=== PATIENT | male | born 1950 | race Caucasian/White ===

== ENCOUNTER 2016-10-23 20:55 | Observation (INO) | payer MEDICARE, OTHER ==
--- NOTE | 2016-10-23 21:59 | ER Document Report ---
ED General - General Chief Complaint: Chest Pain Stated Complaint: CHEST PAIN Time Seen by Provider: 10/23/16 21:58 Notes: Patient is a 65-year-old male presents with complaints of chest pain. Patient says chest pain started today. Left-sided. Nonradiating. Pain is sharp. Says pain is little bit worse with taking a deep breath. No fevers. No vomiting. He has a history of triple bypass surgery in 2009. No cardiac stents. Pain is not worse with movement or motion. He is on dialysis. He gets dialysis Monday. His dialysis doctor is Dr. Bernard. His survey manager is Dr. Romero. His primary care doctors Dr. Harding. No other complaints at this time. TRAVEL OUTSIDE OF THE [place] IN LAST 30 DAYS: No - Related Data Allergies/Adverse Reactions: No Known Allergies Allergy (Verified 10/23/16 22:47) Past Medical History - Social History Smoking Status: Former Smoker Frequency of alcohol use: None Drug Abuse: None Family History: DM, Hypertension - Past Medical History Cardiac Medical History: Reports: Hx Coronary Artery Disease, Hx Heart Attack - 2009, Hx Hypercholesterolemia, Hx Hypertension Denies: Hx Atrial Fibrillation, Hx Peripheral Vascular Disease, Hx Heart Murmur Pulmonary Medical History: Denies: Hx Asthma, Hx Bronchitis, Hx COPD, Hx Pneumonia, Hx Tuberculosis Neurological Medical History: Denies: Hx Cerebrovascular Accident, Hx Seizures Endocrine Medical History: Reports: Hx Diabetes Mellitus Type 2. Denies: Hx Graves' Disease, Hx Hyperthyroidism, Hx Hypothyroidism Renal/ Medical History: Reports: Hx End Stage Renal Disease - dialysis. 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 Denies: Hx Appendectomy, Hx Bowel Surgery, Hx Cholecystectomy, Hx Coronary Artery Bypass Graft, Hx Gastric Bypass Surgery, Hx Herniorrhaphy, Hx Pacemaker, Hx Tonsillectomy. Comment Only: Hx Open Heart Surgery - 2009 - Immunizations Immunizations up to date: No Hx Diphtheria, Pertussis, Tetanus Vaccination: Yes Hx Pneumococcal Vaccination: 06/12/11 Review of Systems - Review of Systems Notes: My Normal Review Basic REVIEW OF SYSTEMS: CONSTITUTIONAL : Denies fever, chills, or sweats. Denies recent illness. EENT: Denies eye, ear, throat, or mouth pain or symptoms. Denies nasal or sinus congestion. CARDIOVASCULAR: Has chest pain RESPIRATORY: Denies cough, cold, or chest congestion. Denies shortness of breath, difficulty breathing, or wheezing. GASTROINTESTINAL: Denies abdominal pain. Denies nausea, vomiting, or diarrhea. Denies constipation. Last BM: : MUSCULOSKELETAL: Denies neck or back pain or joint pain or swelling. SKIN: Denies rash or skin lesions. NEUROLOGICAL: Denies altered mental status or loss of consciousness. Denies headache. Denies weakness or paralysis or loss of use of either side. Denies problems with gait or speech. Denies sensory or motor loss. ALL OTHER SYSTEMS REVIEWED AND NEGATIVE. Physical Exam - Notes Notes: General Appearance: Well nourished, alert, cooperative, no acute distress, no obvious discomfort. Well-appearing. Vitals: reviewed, See vital signs table. Head: no swelling or tenderness to the head Eyes: PERRL, EOMI, Conjuctiva clear Mouth: No decreasd moisture Neck: Supple, no neck tenderness, No thyromegaly Lungs: No wheezing, No rales, No rhonci, No accessory muscle use, good air exchange bilaterally. Heart: Normal rate, Regular rythm, slight systolic murmur., no rub Abdomen: Normal BS, soft, No rigidity, No abdominal tenderness, No guarding, no rebound, no abdominal masses, no organomegaly Extremities: strength 5/5 in all extremities, good pulses in all extremities, no swelling or tenderness in the extremities, no edema. Fistula left forearm. Good palpable thrill. Good distal pulse. Skin: warm, dry, appropriate color, no rash Neuro: speech clear, oriented x 3, normal affect, responds appropriately to questions. Course - Laboratory Result Diagrams: 10/23/16 22:31 10/23/16 22:31 Laboratory results interpreted by me: 10/23/16 10/23/16 22:31 22:31 RBC 3.25 L Hgb 10.1 L Hct 30.0 L Sodium 134.1 L Potassium 5.6 H Chloride 95 L BUN 81 H Creatinine 9.88 H Est GFR ( Amer) 6 L Est GFR (Non-Af Amer) 5 L Glucose 352 H Direct Bilirubin 0.6 H Creatine Kinase 427 H - EKG Interpretation by Me Additional EKG results interpreted by me: 10/23/16 21:58 EKG is reviewed and interpreted by me. EKG shows normal sinus rhythm with rate of [address] segment elevation or depression. No ischemic T wave inversions. GA interval, QRS duration are within normal range. QTc interval slightly prolonged. Old EKG for comparison is from 09/10/2015. - Transfer of Care Notes: 10/23/16 23:26 Patient's chest pain was relieved with nitroglycerin. He is complaining of slight heartburn and therefore I did order a check cocktail as well. His initial troponins 0.085. His troponin a year goes 0.090. I suspect he is in the indeterminate range 2 to requiring dialysis. He is due for dialysis the morning. I did call the nursing classified advertising supervisor who says we do have dialysis beds. I did speak with Dr. Shi who is covering for Dr. Harding who agrees to accept the patient for admission for cardiac workup and wanting dialysis. Patient currently is feeling improved and has no difficulty breathing and looks well. Dictation of this chart was performed using voice recognition software; therefore, there may be some unintended grammatical errors. Discharge - Discharge Clinical Impression: Hyperkalemia Chest pain Qualifiers: Chest pain type: unspecified Qualified Code(s): R07.9 - Chest pain, unspecified Renal failure Qualifiers: Renal failure chronicity: chronic Chronic kidney disease stage: on chronic dialysis Qualified Code(s): N18.6 - End stage renal disease; Z99.2 - Dependence on renal dialysis Condition: Stable Disposition: ADMITTED OBSERVATION Admitting Provider: Mehdi Unit Admitted: Telemetry
[2016-10-23] MEDS ORDERED: ASPIRIN 325 MG TABLET PO ONE (22:04)
[2016-10-23] MEDS ORDERED: NITROGLYCERIN 2% OINTMENT 1 GM PACKET TP ONE (22:04)
[2016-10-23 22:45] LABS: ABSOLUTE BASOPHILS # (AUTO) 0.1 10^3/uL (0.0-0.2); ABSOLUTE EOSINOPHILS # (AUTO) 0.2 10^3/uL (0.0-0.6); ABSOLUTE LYMPHOCYTES (AUTO) 1.2 10^3/uL (0.5-4.7); ABSOLUTE MONOCYTES (AUTO) 0.7 10^3/uL (0.1-1.4); ABSOLUTE NEUT (AUTO) 5.3 10^3/uL (1.7-8.2); BASOPHILS % (AUTO) 1.2 % (0-2); EOSINOPHILS % (AUTO) 2.4 % (0-6); HEMOGLOBIN 10.1 g/dL (13.5-17.0); HGB HCT DIFFERENCE 0.3; LYMPHOCYTES % (AUTO) 15.8 % (13-45); MEAN CORPUSCULAR HGB CONC 33.6 g/dL (32.0-36.0); MEAN CORPUSCULAR VOLUME 92 fl (80-97); MONOCYTES % (AUTO) 9.4 % (3-13); RED BLOOD COUNT 3.25 10^6/uL (4.35-5.55); RED CELL DISTRIBUTION WIDTH 13.6 % (11.5-14.0); SEGMENTED NEUTROPHILS % (AUTO) 71.2 % (42-78); WHITE BLOOD COUNT 7.5 10^3/uL (4.0-10.5)
--- NOTE | 2016-10-23 22:46 | EKG REPORT ---
SEVERITY:- ABNORMAL ECG - SINUS RHYTHM PROBABLE LEFT VENTRICULAR HYPERTROPHY BORDERLINE PROLONGED QT INTERVAL : Confirmed by: Rani Romero 23-Oct-2016 22:45:33
[2016-10-23] MEDS ORDERED: METOCLOPRAMIDE HCL ORAL SOLN 10 MG/10 ML UDCUP PO ONE (23:03)
[2016-10-23] MEDS ORDERED: MAG HYDROX/AL HYDROX/SIMETH SUSP 30 ML UDCUP PO ONE (23:03)
[2016-10-23] MEDS ORDERED: LIDOCAINE 2% VISCOUS SOLN 20 ML UDCUP PO ONE (23:03)
[2016-10-23 23:04] LABS: ALANINE AMINOTRANSFERASE 30 U/L (21-72); ALKALINE PHOSPHATASE 77 U/L (38-126); ANION GAP 16 (5-19); ASPARTATE AMINO TRANSFERASE 29 U/L (17-59); BILIRUBIN,DIRECT 0.6 mg/dL (0.0-0.4); BILIRUBIN,TOTAL 0.6 mg/dL (0.2-1.3); BLOOD UREA NITROGEN 81 mg/dL (7-20); CALCIUM 9.6 mg/dL (8.4-10.2); CARBON DIOXIDE 23 mmol/L (22-30); CHLORIDE 95 mmol/L (98-107); CREATINE KINASE 427 U/L (55-170); CREATININE RESULT 9.88 mg/dL (0.52-1.25); GLUCOSE 352 mg/dL (75-110); POTASSIUM 5.6 mmol/L (3.6-5.0); SODIUM 134.1 mmol/L (137-145)
[2016-10-23 23:16] LABS: CREATINE KINASE MB 4.34 ng/mL (<4.55)
[2016-10-23 23:18] LABS: TROPONIN I 0.085 ng/mL
[2016-10-24] MEDS ORDERED: DEXTROSE 40% GEL 15 GM TUBE X 2 PO PRN (03:43)
[2016-10-24] MEDS ORDERED: GLUCAGON,HUMAN RECOMB 1 MG INJ IM PRN ×2 (03:43→17:42)
[2016-10-24] MEDS ORDERED: DEXTROSE 50%-WATER SYRINGE 12.5 GM/25 ML DOSE IV PRN (03:43)
[2016-10-24] MEDS ORDERED: DEXTROSE 50%-WATER SYRINGE 25 GM/50 ML DOSE IV PRN (03:43)
[2016-10-24] MEDS ORDERED: DEXTROSE 40% GEL 15 GM TUBE PO PRN ×3 (03:43→17:42)
[2016-10-24] MEDS: INSULIN LISPRO 100 UNIT/ML 3 ML VIAL SUBCUT SCH ×2 (08:48→13:19)
[2016-10-24 10:02] LABS: CREATINE KINASE MB 3.35 ng/mL (<4.55); TROPONIN I 0.079 ng/mL
--- NOTE | 2016-10-24 10:13 | PDOC CONSULTATION ---
Consultation Consult Date: 10/24/16 Consult reason:: Hemodialysis. History of Present Illness Admission Date/PCP: 10/23/16 23:55 ALEXIS VILLALOBOS MD History of Present Illness: MIRI BENJAMIN is a 65 year old male With a history of complicated diabetes mellitus hypertension ESRD on hemodialysis with a history of severe noncompliance with diet and medications and high fluid gains comes in with a history of chest pain/pressure.The pain was retrosternal and lasted for a few hours. There was some radiation into the neck. Patient had associated shortness of breath but he has this periodically also because of his high fluid gains. He keeps doing this in spite of numerous advises against it.Patient has had a previous history of CAD status post CABG. Patient is undergoing dialysis without issues.Is currently chest pain- free.Orders were discussed with the treating dialysis nurse. We will try to remove between 4 and 5 L as tolerated as he is definitely fluid overloaded and is in early congestive heart failure. He is hemodynamically stable. Past Medical History Cardiac Medical History: Reports: Coronary Artery Disease, Hyperlipidemia, Myocardial Infarction - 2009 Denies: Atrial Fibrillation, Heart Murmur, Peripheral Vascular Disease Pulmonary Medical History: Denies: Asthma, Bronchitis, Chronic Obstructive Pulmonary Disease (COPD), Pneumonia, Tuberculosis Neurological Medical History: Denies: Seizures Endocrine Medical History: Reports: Diabetes Mellitus Type 1, Diabetes Mellitus Type 2 Denies: Hyperthyroidism, Hypothyroidism Renal/ Medical History: Reports: End Stage Renal Disease - dialysis GI Medical History: Denies: Hepatitis, Hiatal Hernia Musculoskeltal Medical History: Reports: Arthritis - neck Denies: Fibromyalgia, Rheumatoid Arthritis, Systemic Lupus Erythematosus Psychiatric Medical History: Reports: Depression Past Surgical History Past Surgical History: Reports: Vascular Surgery - fistula left forearm Denies: Appendectomy, Cholecystectomy, Coronary Artery Bypass Graft, Gastric Bypass Surgery, Herniorrhaphy, Pacemaker, Tonsillectomy Social History Smoking Status: Former Smoker Frequency of Alcohol Use: None Hx Recreational Drug Use: No Hx Prescription Drug Abuse: No - Advance Directive Resuscitation Status: Full Code Family History Parental Family History Reviewed: Yes - Negative for ESRD. Children Family History Reviewed: No Sibling(s) Family History Reviewed.: No Medication/Allergy Home Medications: Amlodipine Besylate [Norvasc 10 mg Tablet] 10 mg PO QHS 10/24/16 Aspirin [Adult Low Dose Aspirin EC] 81 mg PO DAILY 10/24/16 Calcium Acetate [Phoslo 667 mg Capsule] 1,334 mg PO ASDIR PRN 10/24/16 Calcium Acetate [Phoslo 667 mg Capsule] 2,668 mg PO MEALS 10/24/16 Cyanocobalamin (Vitamin B-12) [Vitamin B-12] 2,000 mcg PO DAILY 10/24/16 Doxazosin Mesylate [Cardura 4 mg Tablet] 4 mg PO QHS 10/24/16 Fish Oil/Dha/Epa [Fish Oil 1,200 mg Fish Oil] 1,200 mg PO DAILY 10/24/16 Folic Acid/Vitamin B Comp W-C [Dialyvite Tablet] 1 tab PO DAILY 10/24/16 Furosemide [Lasix] 40 mg PO WLUNCH 10/24/16 Furosemide [Lasix] 80 mg PO QAM 10/24/16 Gabapentin [Neurontin 300 mg Capsule] 900 mg PO Q8 10/24/16 Hydralazine HCl [Apresoline 50 mg Tablet] 100 mg PO Q8H 10/24/16 Insulin Glargine,Hum.rec.anlog [Lantus Solostar] 20 units SQ QHS 10/24/16 Insulin Lispro [Humalog] 0 units SQ .PERSLIDINGSCALE 10/24/16 Pravastatin Sodium [Pravachol] 20 mg PO QHS 10/24/16 Sitagliptin Phosphate [Januvia 25 mg Tablet] 25 mg PO DAILY 10/24/16 Clonidine HCl [Catapres 0.1 mg Tablet] 0.2 mg PO Q12 #60 tablet 10/25/16 Nitroglycerin [Nitro-Dur 10 mg (0.4MG/Hr) Transdermal Patch] 1 each TD DAILY # 30 patch.td24 10/25/16 Allergies/Adverse Reactions: No Known Allergies Allergy (Verified 10/23/16 22:47) Review of Systems Constitutional: ABSENT: fever(s), headache(s), night sweats, weakness Nose, Mouth, and Throat: ABSENT: mouth pain, sore throat Cardiovascular: PRESENT: dyspnea on exertion, edema. ABSENT: orthropnea, palpitations Respiratory: PRESENT: dyspnea. ABSENT: hemoptysis, sputum Gastrointestinal: ABSENT: abdominal pain, constipation, diarrhea, dysphagia, heartburn, hematemesis, hematochezia Genitourinary: ABSENT: dysuria, hematuria Neurological: ABSENT: abnormal gait, abnormal speech, dizziness, focal weakness Endocrine: ABSENT: heat intolerance Physical Exam Vital Signs: Temp Pulse Resp BP Pulse Ox 97.9 F 60 18 171/58 H 95 10/24/16 08:05 10/24/16 08:05 10/24/16 08:05 10/24/16 08:05 10/24/16 08:05 Intake & Output 10/23/16 10/24/16 10/25/16 06:59 06:59 06:59 Intake Total 3 Output Total 0 Balance 3 General appearance: PRESENT: no acute distress Eye exam: PRESENT: conjunctiva pink, EOMI Ear exam: PRESENT: normal external ear exam Mouth exam: PRESENT: moist, neck supple Neck exam: ABSENT: lymphadenopathy, meningismus, tenderness, thyromegaly, tracheal deviation Respiratory exam: PRESENT: clear to auscultation sarah, crackles, symmetrical, tachypnea. ABSENT: chest wall tenderness, rhonchi Cardiovascular exam: PRESENT: +S1, +S2, systolic murmur GI/Abdominal exam: PRESENT: normal bowel sounds, soft. ABSENT: diminished bowel sounds, organomegaly, tenderness Extremities exam: PRESENT: +2 edema Neurological exam: PRESENT: alert, awake, oriented to person, oriented to place , oriented to time Skin exam: ABSENT: erythema, mottled, rash Results Impressions: Chest X-Ray 10/23/16 22:04 IMPRESSION: MILD CARDIOMEGALY. NO ACUTE RADIOGRAPHIC FINDING IN THE CHEST. Assessment & Plan - Diagnosis (1) Congestive heart failure Qualifiers: Congestive heart failure type: combined Plan: Early. Should respond very well to ultrafiltration on hemodialysis. Discussed with patient on diet and fluid intake. (2) Chest pain Qualifiers: Chest pain type: unspecified Qualified Code(s): R07.9 - Chest pain, unspecified Plan: As per Dr. Villalobos. Currently chest pain-free. (3) Hyperkalemia Plan: Should respond to dialysis. Appropriate bath ordered. Discussed diet with patient. (4) Hypertension Qualifiers: Hypertension type: renovascular hypertension Qualified Code(s): I15.0 - Renovascular hypertension (5) Diabetes mellitus type II, controlled Qualifiers: Diabetes mellitus complication status: with unspecified complications Plan: Advised on diet blood sugar control starting with diet. Patient quite noncompliant. Unfortunate. (6) End-stage renal disease on hemodialysis Plan: Patient currently undergoing dialysis without issues. Orders were discussed with the treating dialysisit will remotely between 4 and 5 L as tolerated. Hemodynamically stable. (7) Hyperkalemia Plan: He should respond to dialysis. Discussed diet again with patient.
[2016-10-24] MEDS: HEPARIN SOD (PORCINE) 1,000 UNIT/ML 10 ML VIAL IV PRN ×2 (10:33→13:19)
[2016-10-24] MEDS ORDERED: CALCIUM ACETATE 667 MG CAPSULE PO PRN (14:42)
[2016-10-24] MEDS ORDERED: HYDRALAZINE HCL 50 MG TABLET PO ONE (15:15)
[2016-10-24] MEDS ORDERED: CLONIDINE HCL 0.1 MG TABLET PO ONE (15:15)
[2016-10-24 15:53] LABS: CREATINE KINASE MB 2.99 ng/mL (<4.55); TROPONIN I 0.092 ng/mL
[2016-10-24] MEDS ORDERED: INSULIN LISPRO 100 UNIT/ML 3 ML VIAL SUBCUT SCH (16:00)
[2016-10-24] MEDS ORDERED: INSULIN LISPRO 100 UNIT/ML 3 ML VIAL SUBCUT PRN (16:21)
[2016-10-24] MEDS: CALCIUM ACETATE 667 MG CAPSULE PO SCH (16:33)
[2016-10-24] MEDS ORDERED: SITAGLIPTIN PHOSPHATE 25 MG TABLET PO ONE (17:00)
--- NOTE | 2016-10-24 17:38 | PDOC H&P ---
History of Present Illness Admission Date/PCP: 10/23/16 23:55 ALEXIS VILLALOBOS MD Patient complains of: Chest pain History of Present Illness: MIRI BENJAMIN is a 65 year old male With a history of complicated diabetes mellitus hypertension ESRD on hemodialysis with a history of severe noncompliance with diet and medications and high fluid gains comes in with a history of chest pain/pressure.The pain was retrosternal and lasted for a few hours. There was some radiation into the neck. Patient had associated shortness of breath but he has this periodically also because of his high fluid gains. He keeps doing this in spite of numerous advises against it.Patient has had a previous history of CAD status post CABG. Patient is undergoing dialysis without issues.Is currently chest pain- free.Orders were discussed with the treating dialysis nurse. We will try to remove between 4 and 5 L as tolerated as he is definitely fluid overloaded and is in early congestive heart failure. He is hemodynamically stable. Past Medical History Cardiac Medical History: Reports: Coronary Artery Disease, Myocardial Infarction - 2010, Hyperlipidema, Hypertension Denies: Atrial Fibrillation, Peripheral Vascular Disease, Heart Murmur Pulmonary Medical History: Denies: Asthma, Bronchitis, Chronic Obstructive Pulmonary Disease (COPD), Pneumonia, Tuberculosis Neurological Medical History: Denies: Seizures Endocrine Medical History: Reports: Diabetes Mellitus Type 1, Diabetes Mellitus Type 2 Denies: Hyperthyroidism, Hypothyroidism Renal/ Medical History: Reports: End Stage Renal Disease - dialysis GI Medical History: Denies: Hepatitis, Hiatal Hernia Musculoskeltal Medical History: Reports: Arthritis - neck Denies: Fibromyalgia Psychiatric Medical History: Reports: Depression Hematology: Denies: Anemia, Sickle Cell Disease Past Surgical History Past Surgical History: Reports: Vascular Surgery - fistula left forearm Denies: Appendectomy, Cholecystectomy, Coronary Artery Bypass Graft, Gastric Bypass Surgery, Herniorrhaphy, Pacemaker, Tonsillectomy Social History Smoking Status: Former Smoker Frequency of Alcohol Use: None Hx Recreational Drug Use: No Hx Prescription Drug Abuse: No - Advance Directive Resuscitation Status: Full Code Family History Family History: Reviewed & Not Pertinent, DM, Hypertension Parental Family History Reviewed: Yes Children Family History Reviewed: Yes Sibling(s) Family History Reviewed.: Yes Medication/Allergy Home Medications: Amlodipine Besylate [Norvasc 10 mg Tablet] 10 mg PO QHS 10/24/16 Aspirin [Adult Low Dose Aspirin EC] 81 mg PO DAILY 10/24/16 Calcium Acetate [Phoslo 667 mg Capsule] 1,334 mg PO ASDIR PRN 10/24/16 Calcium Acetate [Phoslo 667 mg Capsule] 2,668 mg PO MEALS 10/24/16 Clonidine HCl [Catapres 0.1 mg Tablet] 0.1 mg PO Q8 10/24/16 Cyanocobalamin (Vitamin B-12) [Vitamin B-12] 2,000 mcg PO DAILY 10/24/16 Doxazosin Mesylate [Cardura 4 mg Tablet] 4 mg PO QHS 10/24/16 Fish Oil/Dha/Epa [Fish Oil 1,200 mg Fish Oil] 1,200 mg PO DAILY 10/24/16 Folic Acid/Vitamin B Comp W-C [Dialyvite Tablet] 1 tab PO DAILY 10/24/16 Furosemide [Lasix] 40 mg PO WLUNCH 10/24/16 Furosemide [Lasix] 80 mg PO QAM 10/24/16 Gabapentin [Neurontin 300 mg Capsule] 900 mg PO Q8 10/24/16 Hydralazine HCl [Apresoline 50 mg Tablet] 100 mg PO Q8H 10/24/16 Insulin Glargine,Hum.rec.anlog [Lantus Solostar] 20 units SQ QHS 10/24/16 Insulin Lispro [Humalog] 0 units SQ .PERSLIDINGSCALE 10/24/16 Pravastatin Sodium [Pravachol] 20 mg PO QHS 10/24/16 Sitagliptin Phosphate [Januvia 25 mg Tablet] 25 mg PO DAILY 10/24/16 Allergies/Adverse Reactions: No Known Allergies Allergy (Verified 10/23/16 22:47) Review of Systems Constitutional: ABSENT: chills, fever(s), headache(s), weight gain, weight loss Eyes: ABSENT: visual disturbances Ears: ABSENT: hearing changes Cardiovascular: PRESENT: chest pain Respiratory: ABSENT: cough, hemoptysis Gastrointestinal: ABSENT: abdominal pain, constipation, diarrhea, hematemesis, hematochezia, nausea, vomiting Genitourinary: ABSENT: dysuria, hematuria Musculoskeletal: ABSENT: joint swelling Integumentary: ABSENT: rash, wounds Neurological: ABSENT: abnormal gait, abnormal speech, confusion, dizziness, focal weakness, syncope Psychiatric: ABSENT: anxiety, depression, homidical ideation, suicidal ideation Endocrine: ABSENT: cold intolerance, heat intolerance, menstrual abnormalities, polydipsia, polyuria Hematologic/Lymphatic: ABSENT: easy bleeding, easy bruising, lymphadenopathy Physical Exam Vital Signs: Temp Pulse Resp BP Pulse Ox 98.0 F 60 18 168/56 H 97 10/24/16 16:15 10/24/16 16:15 10/24/16 16:15 10/24/16 16:15 10/24/16 16:15 Intake & Output 10/23/16 10/24/16 10/25/16 06:59 06:59 06:59 Intake Total 3 Output Total 0 Balance 3 General appearance: PRESENT: no acute distress, well-developed, well-nourished Head exam: PRESENT: atraumatic, normocephalic Eye exam: PRESENT: conjunctiva pink, EOMI, PERRLA. ABSENT: scleral icterus Ear exam: PRESENT: normal external ear exam Mouth exam: PRESENT: moist, tongue midline Neck exam: PRESENT: full ROM. ABSENT: carotid bruit, JVD, lymphadenopathy, thyromegaly Respiratory exam: PRESENT: clear to auscultation sarah Cardiovascular exam: PRESENT: RRR. ABSENT: diastolic murmur, rubs, systolic murmur Pulses: PRESENT: normal dorsalis pedis pul, +2 pedal pulses bilateral Vascular exam: PRESENT: normal capillary refill GI/Abdominal exam: PRESENT: normal bowel sounds, soft. ABSENT: distended, guarding, mass, organolmegaly, rebound, tenderness Rectal exam: PRESENT: deferred Neurological exam: PRESENT: alert, awake, oriented to person, oriented to place , oriented to time, oriented to situation, CN II-XII grossly intact. ABSENT: motor sensory deficit Psychiatric exam: PRESENT: appropriate affect, normal mood. ABSENT: homicidal ideation, suicidal ideation Skin exam: PRESENT: dry, intact, warm. ABSENT: cyanosis, rash Results Laboratory Results: 10/24/16 10/24/16 10/24/16 09:14 09:14 15:02 Creatine Kinase 352 H 307 H CK-MB (CK-2) 3.35 Troponin I 0.079 10/24/16 15:02 Creatine Kinase CK-MB (CK-2) 2.99 Troponin I 0.092 Impressions: Chest X-Ray 10/23/16 22:04 IMPRESSION: MILD CARDIOMEGALY. NO ACUTE RADIOGRAPHIC FINDING IN THE CHEST. Assessment & Plan - Diagnosis (1) Chest pain Qualifiers: Chest pain type: unspecified Qualified Code(s): R07.9 - Chest pain, unspecified Is this a current diagnosis for this admission?: YesPlan: Patient's no significant history of CAD and the multiple risk factor will admit the patient in the IMCU and rule out acute coronary syndrome and consult the cardiology for further evaluations. Patient's last stress was done according to the patient's 6 month back and was all normal (2) Coronary artery disease Qualifiers: Coronary Disease-Associated Artery/Lesion type: unspecified vessel or lesion type Is this a current diagnosis for this admission?: YesPlan: Continues to current medications and follow with the cardiology (3) Hyperlipidemia Qualifiers: Hyperlipidemia type: unspecified Qualified Code(s): E78.5 - Hyperlipidemia, unspecified Is this a current diagnosis for this admission?: YesPlan: Stable (4) Congestive heart failure Qualifiers: Congestive heart failure type: combined Is this a current diagnosis for this admission?: YesPlan: Continues to current medications (5) Diabetes mellitus type II, controlled Qualifiers: Diabetes mellitus complication status: with unspecified complications Is this a current diagnosis for this admission?: YesPlan: Continues a sliding scale with [facility] protocol (6) End-stage renal disease on hemodialysis Is this a current diagnosis for this admission?: YesPlan: Continues to hemodialysis per Dr. 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
[2016-10-24] MEDS ORDERED: DEXTROSE 50%-WATER 25 GM/50 ML DISP.SYRIN IV PRN ×2 (17:42)
[2016-10-24] MEDS ORDERED: GABAPENTIN 300 MG CAPSULE PO ONE (20:15)
[2016-10-24 20:41] LABS: CREATINE KINASE MB 2.62 ng/mL (<4.55); TROPONIN I 0.096 ng/mL
[2016-10-24] MEDS: HYDRALAZINE HCL 50 MG TABLET PO SCH (21:26)
[2016-10-24] MEDS ORDERED: INSULIN GLARGINE,HUM.REC.ANLOG 300 UNIT/3 ML INSULN.PEN SUBCUT SCH (22:00)
[2016-10-24] MEDS ORDERED: ATORVASTATIN CALCIUM 10 MG TABLET PO SCH (22:00)
[2016-10-24] MEDS ORDERED: GABAPENTIN 300 MG CAPSULE PO SCH (22:00)
[2016-10-24] MEDS ORDERED: AMLODIPINE BESYLATE 10 MG TABLET PO SCH (22:00)
[2016-10-24] MEDS ORDERED: DOXAZOSIN MESYLATE 4 MG TABLET PO SCH (22:00)
[2016-10-24] MEDS ORDERED: CLONIDINE HCL 0.1 MG TABLET PO SCH (22:00)
--- NOTE | 2016-10-25 04:43 | CONSULTATION REPORT E ---
Consultation Report NAME: MIRI BENJAMIN : 1950 AGE: 65Y DATE: 10/24/2016 314 A TO: DEVIN BARKER M.D. FROM: NED VILLALOBOS M.D. Requesting Physician REASON FOR CONSULTATION: Patient with CAD, history of CABG with atypical chest pain and volume overload, congestive heart failure. HISTORY: The patient is a 65-year-old male with a history of diabetes mellitus type 2, end-stage renal disease, hypertension, and hyperlipidemia who states that since yesterday he has been having chest pressure at rest which is in the left front of the chest lasting for at least a few hours. The patient states that it was associated with shortness of breath, but the patient has intermittent shortness of breath due to weight gain due to noncompliance with diet. He states that with exertion, the chest pressure did not increase. Off and on through the day, he put nitroglycerin ointment on him and after dialysis yesterday, he felt much better. The patient was seen this morning when he was having dialysis and later formal consult was rendered at 1315 hours to 1400 hours when the patient was back in his telemetry bed in the [facility]. At present, the patient is without any chest pain or discomfort. There is no PND or orthopnea. The patient is able to lie down flat. There are no palpitations or arrhythmia. The patient at present has no shortness of breath. There is no leg edema. There is no TIA or CVA symptoms. PAST MEDICAL HISTORY: 1. Myocardial infarction in 2009. 2. History of coronary artery disease. 3. History of coronary artery bypass graft surgery. 4. History of hypertension. 5. History of hyperlipidemia. 6. No history of cardiac arrhythmia. 7. No history of syncope. 8. The patient denies PND or orthopnea. There was some leg edema. There is no dizziness or syncope. 9. History of diabetes mellitus type 2, insulin dependent. 10. History of end-stage renal disease and is on hemodialysis. 11. He has a history of enlarged prostate. 12. He has a history of hypertension. 13. There is no TIA or CVA. 14. The patient has a history of noncompliance with diet and fluids and has intermittent weight gain causing him to have shortness of breath. He is compliant with dialysis. 15. There is no history of anxiety or depression. 16. There is no history of fatty food intolerance. ALLERGIES: He has no known allergies. DISPOSITION: The patient is a FULL CODE. His daughter is his surrogate healthcare decision maker. SOCIAL HISTORY: The patient is a former smoker, he quit smoking many years ago. FAMILY HISTORY: Positive for diabetes mellitus, hypertension and coronary artery disease. MEDICATIONS: 1. Amlodipine 10 mg p.o. nightly. 2. Aspirin 81 mg p.o. daily. 3. Atorvastatin 5 mg p.o. nightly. 4. PhosLo 2668 mg p.o. with meals. 5. Clonidine 0.1 mg p.o. every 8 hours. 6. Vitamin B12, 2000 mcg p.o. daily. 7. Cyanocobalamin/FA/pyridoxine (Folbee) 1 tablet p.o. daily. 8. Hypoglycemic precautions with glucose 40% gel, 15 g and 30 g p.o. p.r.n. hypoglycemic. 9. Dextrose 50%, 12.5 g and 25 mg IV p.r.n. hypoglycemia. 10. Cardura 4 mg p.o. nightly. 11. Lasix 40 mg p.o. with lunch and 80 mg p.o. every morning. 12. Neurontin 900 mg p.o. every 12 hours. 13. Glucagon 1 mg IM p.r.n. hypoglycemia. 14. Heparin 1000 units IV during dialysis p.r.n. 15. Hydralazine 100 mg p.o. every 8 hours. 16. Lantus 25 units subcutaneously nightly. 17. *------* a.c. and hours of sleep with sliding scale insulin coverage. 18. Lovaza 1 g p.o. with breakfast. 19. Januvia 25 mg p.o. daily. REVIEW OF SYMPTOMS: CONSTITUTIONAL: Denies any fever, chills, or rigors. Complains of generalized fatigue and generalized weakness. HEAD: Denies headaches or head injury. No dizziness. EYES: No history of amblyopia or diplopia. No history of amaurosis fugax. EARS: No history of hearing loss. No history of tinnitus. No history of recurrent ear infections. NOSE: No history of hay fever. No history of nosebleeds. No history of nasal polyps. MOUTH: No history of altered taste sensation. No history of ulcers in the mouth. No bleeding from the gums. THROAT: No odynophagia or dysphagia. No history of recurrent sore throats. SKIN: No history of pruritus. No history of yellowish discoloration of the skin. No psoriasis. No skin cancer. NECK: No history of symptoms of C-spine arthritis. No history of swelling in the neck. LUNGS: No history of asthma or COPD. No history of sleep apnea. No history of pulmonary embolism. No history of hemoptysis. No history of pleuritic chest pain. GASTROINTESTINAL: No history of GI bleed. No history of peptic ulcer disease. No history of fatty food intolerance. No history of cirrhosis or hepatitis. The patient's appetite is good. MUSCULOSKELETAL: Complains of arthritis and back pain and also leg pain secondary to neuropathy and is on gabapentin for that. There is no collagen vascular disease. RENAL: History of end-stage renal disease on hemodialysis. The patient does make some amount of urine and hence is on Lasix. There are no symptoms of hematuria, pyuria or dysuria. ENDOCRINE: History of diabetes mellitus type 2, insulin dependent with end-stage renal disease as a complications. No history of polydipsia or polyuria. No history of heat or cold intolerance. No history of hypothyroidism or hyperthyroidism. CENTRAL NERVOUS SYSTEM: No history of TIA or CVA. No history of sleep apnea. No history of seizures, headaches or migraines. PSYCHIATRIC: No history of anxiety or depression. No history of suicidal ideation. No history of homicidal ideation. VASCULAR: No history of calf or buttock claudication. No history of DVT. HEMATOLOGIC: No history of bleeding diathesis. No history of clotting disorders. PHYSICAL EXAMINATION: GENERAL: The patient is mildly obese. He is well groomed, in no acute distress. VITAL SIGNS: The patient earlier this morning was afebrile with a temperature of 97.9 degrees Fahrenheit, pulse of 60 beats per minute, blood pressure 171/58, respirations 18 per minute, O2 saturation 95% on room air. HEENT: Head is atraumatic and normocephalic. Eyes; pupils are equal, round, regular, reactive to light and accommodation. Extraocular movements are normal. There is no conjunctival pallor. There is no scleral icterus. Ears; tympanic membranes are intact. External auditory canals are clear. Nose; there is no deviated nasal septum. There is no inflammation of the nasal mucous membranes. Mouth; mucous membranes of the mouth are moist. Tongue is moist. There are no ulcers. There is no bleeding from the gums. Throat; there is no redness of the oropharynx. There are no exudates in the throat. SKIN: There is no petechia or ecchymosis. There are no skin lesions or skin rashes. NECK: Supple. There is no JVD. Carotids are equal. There is no bruit. There is no lymphadenopathy. Trachea is central. There is no goiter. LUNGS: At present are clear to auscultation and percussion without any rales, rhonchi or wheezing. HEART: S1 and S2 are heard. There is no S3 gallop. There is no S4 gallop. There is a systolic murmur at the left sternal border at the apex. There is no rub. ABDOMEN: Soft, nontender. There is no hepatosplenomegaly. Bowel sounds are well heard. There are no tender areas or masses. EXTREMITIES: Femorals are diminished. There are no femoral bruits. Leg pulses are diminished. There is trace pedal edema. There is no DVT or cellulitis. There is no calf tenderness. There is no cyanosis or clubbing. CENTRAL NERVOUS SYSTEM: The patient is conscious, awake, alert, oriented x3 with no focal deficits. PSYCHIATRIC: The patient's judgment and insight are intact. His affect was normal. IMAGING: The patient's lung V/Q scan was negative. The patient's chest x-ray shows mild cardiomegaly without any failure or infiltrates. ELECTROCARDIOGRAM: EKG shows sinus rhythm, probable left ventricular hypertrophy. No acute changes. I have reviewed the EKG and chest x-ray myself. LABORATORY DATA: White count 7500, hemoglobin 7.1, hematocrit 30, platelet count 168,000. Sodium 134, potassium 5.6, chloride 95, CO2 of 23, BUN 81, creatinine 9.88, GFR reduced at 5 mL which is end-stage renal disease, glucose 352. Liver function tests are normal except for high direct bilirubin of 0.6. Albumin 4.0, total protein 7. CPK-MB is negative. Troponin-I 0.085, 0.09, 0.079. IMPRESSION: 1. Chest pain, noncardiac. So far, no definite evidence of myocardial infarction although there is an indeterminate troponin-I. 2. Coronary artery disease. 3. Old myocardial infarction. 4. History of coronary artery bypass graft surgery. 5. End-stage renal disease. The patient had dialysis yesterday and this morning. 6. Hypertension, not very well controlled. 7. Diabetes mellitus type 2. 8. Hyperlipidemia. 9. Noncompliance with diet and fluids. RECOMMENDATIONS: 1. The patient is stable. Note that the patient states that he had a stress test about 6 months ago. In fact, the patient was last seen in the office about 2 years ago, at which time I ordered an echo and a stress test and the patient did not show up for that. We will try to get the patient's stress test report that he says that he had 6 months ago. 2. In view of the patient being on dialysis and oral nitrates, will add transdermal Nitro-Patch on the patient 0.4 mg/h daily to chest wall, on for 12 hours and off for 12 hours. 3. We will increase the patient's clonidine to 0.2 mg p.o. every 8 hours. 4. The patient if stable, can be discharged in the morning and I will follow up the patient in the office. The patient is agreeable to being followed up in the office. TIME SPENT: Note, 40 minutes spent on the patient with more than 50% of the time spent on direct patient care and also review of the patient's medications and adjusting the patient's medications and discussions of care plan with the attending physician and other caregivers on the case. Will follow the patient as an outpatient. Will sign off. DICTATING PHYSICIAN: DEVIN BARKER M.D. [id number] ZACHARIAHY#: [id number] ID: [id number] JOB#: [id number] ACCT: [id number] cc:DEVIN BARKER M.D. >
[2016-10-25] MEDS: HYDRALAZINE HCL 50 MG TABLET PO SCH (05:03)
[2016-10-25] MEDS ORDERED: FUROSEMIDE 80 MG TABLET PO SCH (08:00)
[2016-10-25] MEDS ORDERED: OMEGA-3 ACID ETHYL ESTERS 1 GM CAPSULE PO SCH (08:00)
[2016-10-25 08:02] VITALS: BP 171/58
[2016-10-25] MEDS: CALCIUM ACETATE 667 MG CAPSULE PO SCH (08:23)
[2016-10-25] MEDS ORDERED: NITROGLYCERIN 10 MG (0.4 MG/HR) PATCH.TD24 TD SCH (10:00)
[2016-10-25] MEDS ORDERED: SITAGLIPTIN PHOSPHATE 25 MG TABLET PO SCH (10:00)
[2016-10-25] MEDS ORDERED: FOLIC ACID PO SCH (10:00)
[2016-10-25] MEDS ORDERED: (PENDING PHARMACY ID) (Fish Oil/Dha/Epa [Fish Oil 1,200 Mg Fish Oil] 1,200 MG) PO SCH (10:00)
[2016-10-25] MEDS ORDERED: VITAMIN B COMP W C PO SCH (10:00)
[2016-10-25] MEDS ORDERED: CYANOCOBALAMIN/FA/PYRIDOXINE TABLET PO SCH (10:00)
[2016-10-25] MEDS ORDERED: GABAPENTIN 300 MG CAPSULE PO SCH (10:00)
[2016-10-25] MEDS ORDERED: ASPIRIN 81 MG TABLET, ENT COATED PO SCH (10:00)
[2016-10-25] MEDS ORDERED: CYANOCOBALAMIN (VITAMIN B-12) 1,000 MCG TABLET PO SCH (10:00)
[2016-10-25] MEDS ORDERED: CLONIDINE HCL 0.1 MG TABLET PO SCH (10:00)
--- NOTE | 2016-10-25 10:41 | EKG REPORT ---
SEVERITY:- ABNORMAL ECG - SINUS RHYTHM LEFT VENTRICULAR HYPERTROPHY BORDERLINE PROLONGED QT INTERVAL : Confirmed by: Jo Pacheco MD 25-Oct-2016 10:41:14
[2016-10-25] MEDS ORDERED: FUROSEMIDE 40 MG TABLET PO SCH (12:00)
--- NOTE | 2016-10-27 10:14 | PDOC DISCHARGE SUMMARY ---
General - Admit/Disc Date/PCP Admission Date/Primary Care Provider: 10/23/16 23:55 ALEXIS VILLALOBOS MD Discharge Date: 10/25/16 - Discharge Diagnosis (1) Chest pain Is this a current diagnosis for this admission?: YesSummary: All cardiac workup is negative and VQ scan is also negative. Follow outpatients cardiology for the stress test (2) Coronary artery disease Is this a current diagnosis for this admission?: YesSummary: Currently stable (3) Hyperlipidemia Is this a current diagnosis for this admission?: Yes (4) Congestive heart failure Is this a current diagnosis for this admission?: Yes (5) Diabetes mellitus type II, controlled Is this a current diagnosis for this admission?: Yes (6) End-stage renal disease on hemodialysis Is this a current diagnosis for this admission?: Yes (7) Hypertension Is this a current diagnosis for this admission?: Yes - Additional Information Resuscitation Status: Full Code Discharge Diet: Diabetic Discharge Activity: Activity As Tolerated Home Medications: Amlodipine Besylate [Norvasc 10 mg Tablet] 10 mg PO QHS 10/24/16 Aspirin [Adult Low Dose Aspirin EC] 81 mg PO DAILY 10/24/16 Calcium Acetate [Phoslo 667 mg Capsule] 1,334 mg PO ASDIR PRN 10/24/16 Calcium Acetate [Phoslo 667 mg Capsule] 2,668 mg PO MEALS 10/24/16 Cyanocobalamin (Vitamin B-12) [Vitamin B-12] 2,000 mcg PO DAILY 10/24/16 Doxazosin Mesylate [Cardura 4 mg Tablet] 4 mg PO QHS 10/24/16 Fish Oil/Dha/Epa [Fish Oil 1,200 mg Fish Oil] 1,200 mg PO DAILY 10/24/16 Folic Acid/Vitamin B Comp W-C [Dialyvite Tablet] 1 tab PO DAILY 10/24/16 Furosemide [Lasix] 40 mg PO WLUNCH 10/24/16 Furosemide [Lasix] 80 mg PO QAM 10/24/16 Gabapentin [Neurontin 300 mg Capsule] 900 mg PO Q8 10/24/16 Hydralazine HCl [Apresoline 50 mg Tablet] 100 mg PO Q8H 10/24/16 Insulin Glargine,Hum.rec.anlog [Lantus Solostar] 20 units SQ QHS 10/24/16 Insulin Lispro [Humalog] 0 units SQ .PERSLIDINGSCALE 10/24/16 Pravastatin Sodium [Pravachol] 20 mg PO QHS 10/24/16 Sitagliptin Phosphate [Januvia 25 mg Tablet] 25 mg PO DAILY 10/24/16 Clonidine HCl [Catapres 0.1 mg Tablet] 0.2 mg PO Q12 #60 tablet 10/25/16 Nitroglycerin [Nitro-Dur 10 mg (0.4MG/Hr) Transdermal Patch] 1 each TD DAILY # 30 patch.td24 10/25/16 History of Present Illness History of Present Illness: MIRI BENJAMIN is a 65 year old male With a history of complicated diabetes mellitus hypertension ESRD on hemodialysis with a history of severe noncompliance with diet and medications and high fluid gains comes in with a history of chest pain/pressure.The pain was retrosternal and lasted for a few hours. There was some radiation into the neck. Patient had associated shortness of breath but he has this periodically also because of his high fluid gains. He keeps doing this in spite of numerous advises against it.Patient has had a previous history of CAD status post CABG. Patient is undergoing dialysis without issues.Is currently chest pain- free.Orders were discussed with the treating dialysis nurse. We will try to remove between 4 and 5 L as tolerated as he is definitely fluid overloaded and is in early congestive heart failure. He is hemodynamically stable. Hospital Course Hospital Course: Is a 65-year-old male present in the emergency department with a complaint of chest pain with multiple risk factors patient was admitting in the hospital and rule out acute coronary syndromes and also ordered a VQ scan which is also negative and cardiology consult was placed. Patient otherwise remained chest pain-free and the patient's discharge home with the stable conditions and discussed with the cardiology and follow as outpatients Physical Exam Vital Signs: Temp Pulse Resp BP Pulse Ox 98.2 F 56 L 18 171/58 H 100 10/25/16 08:41 10/25/16 08:41 10/25/16 08:41 10/25/16 08:41 10/25/16 08:41 General appearance: PRESENT: no acute distress, well-developed, well-nourished Head exam: PRESENT: atraumatic, normocephalic Eye exam: PRESENT: conjunctiva pink, EOMI, PERRLA. ABSENT: scleral icterus Ear exam: PRESENT: normal external ear exam Mouth exam: PRESENT: moist, tongue midline Neck exam: PRESENT: full ROM. ABSENT: carotid bruit, JVD, lymphadenopathy, thyromegaly Respiratory exam: PRESENT: clear to auscultation sarah Cardiovascular exam: PRESENT: RRR. ABSENT: diastolic murmur, rubs, systolic murmur Pulses: PRESENT: normal dorsalis pedis pul, +2 pedal pulses bilateral Vascular exam: PRESENT: normal capillary refill GI/Abdominal exam: PRESENT: normal bowel sounds, soft. ABSENT: distended, guarding, mass, organolmegaly, rebound, tenderness Rectal exam: PRESENT: deferred Neurological exam: PRESENT: alert, awake, oriented to person, oriented to place , oriented to time, oriented to situation, CN II-XII grossly intact. ABSENT: motor sensory deficit Psychiatric exam: PRESENT: appropriate affect, normal mood. ABSENT: homicidal ideation, suicidal ideation Skin exam: PRESENT: dry, intact, warm. ABSENT: cyanosis, rash Results Laboratory Results: 10/24/16 10/24/16 10/24/16 09:14 09:14 15:02 Creatine Kinase 352 H 307 H CK-MB (CK-2) 3.35 Troponin I 0.079 10/24/16 10/24/16 10/24/16 15:02 20:05 20:05 Creatine Kinase 273 H CK-MB (CK-2) 2.99 2.62 Troponin I 0.092 0.096 Impressions: Chest X-Ray 10/23/16 22:04 IMPRESSION: MILD CARDIOMEGALY. NO ACUTE RADIOGRAPHIC FINDING IN THE CHEST. [facility] 10/24/16 00:00 IMPRESSION: NORMAL VENTILATION-PERFUSION LUNG SCAN. NEGATIVE FOR PULMONARY EMBOLI. Plan Time Spent: Greater than 30 Minutes - Patient's discharge home with the stable conditions and patient have a normal chest pain and the patient's walk in the hallway without any problems and the patient's p.o. intake is good. Patient was placed in the Nitropatch and increase the clonidine by cardiology and discussed with the patient follow outpatient
== END 2016-10-25 09:05 | disposition home or self-care (01) ==
LOC: ER 20:55 → EH 23:55 → 3W 10-24 03:08
PROVIDERS: ADMIT Family Medicine; ATTEND Family Medicine
PROC: 5A1D00Z (ICD-10-PCS; principal; 2016-10-24)
DX: R07.89 Other chest pain (principal); R07.9 Chest pain, unspecified; I25.10 Atherosclerotic heart disease of native coronary artery without angina pectoris; E78.5 Hyperlipidemia, unspecified; E11.8 Type 2 diabetes mellitus with unspecified complications; I13.2 Hypertensive heart and chronic kidney disease with heart failure and with stage 5 chronic kidney disease, or end stage renal disease; I50.40 Unspecified combined systolic (congestive) and diastolic (congestive) heart failure; N18.6 End stage renal disease; I15.0 Renovascular hypertension; I25.2 Old myocardial infarction; M54.9 Dorsalgia, unspecified; G62.9 Polyneuropathy, unspecified; E66.9 Obesity, unspecified; M13.88 Other specified arthritis, other site; E87.5 Hyperkalemia; R12 Heartburn; Z99.2 Dependence on renal dialysis; Z79.82 Long term (current) use of aspirin; Z79.4 Long term (current) use of insulin; Z79.899 Other long term (current) drug therapy; Z95.1 Presence of aortocoronary bypass graft; Z82.49 Family history of ischemic heart disease and other diseases of the circulatory system; Z87.891 Personal history of nicotine dependence; Z91.11 Patient's noncompliance with dietary regimen; Z83.3 Family history of diabetes mellitus; Z68.31 Body mass index [BMI] 31.0-31.9, adult
CPT/HCPCS: 93005 ×2; 99285; 36415 ×2; 82553 ×2; 82962 ×2; 82550 ×2; 85025; 80053; 84484 ×2; 71010; 78582; 93010 ×2; G0257; G0378 ×2; A9540; A9567; A9270 ×22; J1644; J3490 ×4; Q9969; J1815

== ENCOUNTER → 2016-11-29 | Outpatient (CLI) | payer MEDICARE, OTHER ==
[~2016-11-29] MED LIST: AMINOPHYLLINE INJ/PF 250 MG/10 ML SDV IV ONE; REGADENOSON INJ 0.4 MG/5 ML DISP.SYRIN IV ONE
--- NOTE | 2016-11-29 19:44 | DRAGON STRESS TEST REPORT ---
INTRAVENOUS LEXISCAN CARDIOLITE STRESS TEST USING SINGLE PHOTON EMMISION COMPUTERIZED TOMOGRAPHIC. DATE OF PROCEDURE: November 29, 2016 INDICATION : Chest pain CARDIAC RISK FACTORS: Diabetes, hypertension, dyslipidemia, known CAD RESTING EKG: Sinus rhythm, LVH with secondary ST-T wave changes. STRESS EKG: No significant additional I think patient with ablation to go as an inpatient changes noted with LexiScan bolus REASON FOR TERMINATION: Protocol. PROCEDURE REPORT: Baseline heart rate 57 beats per minute with blood pressure of 157/61. Patient had no significant complaints. Heart rate at 2 minutes post bolus 61 with a blood pressure of 153/61. 3 minutes post bolus heart rate 61 with blood pressure of 150/61. No significant EKG changes were noted. Patient had no significant complaints during the procedure or postprocedure. Patient injected with Aminophyllin 75 mg at 3 minutes or later after Lexiscan bolus. CONCLUSIONS: Normal EKG and hemodynamic response to IV LexiScan. NUCLEAR DATA: At rest the patient was given 14.73 millicuries of technetium 99 sestamibi injected intravenously. As per protocol rest gated SPECT images were obtained. Subsequently the patient was given intravenous LexiScan at a dose of 0.4 mg in 5 mL intravenously, followed by flush with normal saline. Subsequently the stress dose of 43.5 millicuries of technetium 99 sestamibi was injected intravenously. As per protocol stress gated images were obtained. NUCLEAR INTERPRETATION: Both raw and processed data were used for interpretation. Visual, qualitative, computer-generated quantitative data was used. There was good myocardial uptake of technetium compound. Motion artifact and soft tissue attenuations were noted. Increased visceral uptake was noted. Mild transient perfusion defect noted in the inferior wall with also a underlying fixed defect in the mid inferior wall. This is indicative of ischemia with underlying scar in the inferior wall. EKG gated imaging showed LV EF at 48 %, rest and stress gated EF similar visually with mild inferior wall hypokinesia. T. I D. ratio was 1.31. Lung heart ratio noted to be within normal limits 0.41. No significant extracardiac and abnormal radiotracer activities were noted. RV free wall uptake was noted to be borderline increased. IMPRESSION: Also refer to comments under nuclear interpretation. Also test results needs to be interpreted in the context of pretest probability. 1. Mild transient perfusion defect noted in the inferior wall with also a underlying fixed defect in the mid inferior wall. This is indicative of ischemia with underlying scar in the inferior wall 2. There is moderate fixed defect indicative of moderate scar in the mid inferior wall.. 3. EKG gated imaging shows left ejection fraction of approximately 48 % with mild inferior wall hypokinesia. Mild transient ischemic dilatation noted which could indicate balanced ischemia as well but clinical correlation is requested. 4. Clinical correlation requested as occasionally worse disease disease could be missed. In approximately 10% of the cases Lexiscan may not cause adequate vasodilatory stress. RECOMMENDATIONS: Aggressive risk factor modification, medical therapy. Clinical correlation with echocardiogram derived ejection fraction. Inability to exercise by itself can lead to increased cardiovascular event risks. Consider cardiology consultation and or follow-up if clinically indicated. I AM AVAILABLE FOR CARDIOLOGY CONSULTATION AND FOLLOWUP IF REQUESTED BY PMArely Romeor M.D., [employer] Machine Mechanic assistant property manager, Board certified in cardiovascular diseases, Nuclear cardiology, Echocardiography Cardiac CT and cardiac MRI Ph. [phone] RADHA
== END ==
LOC: RAD 06:41
PROVIDERS: ATTEND Specialist
DX: R07.9 Chest pain, unspecified (principal)
CPT/HCPCS: 93017; 78452; A9500; J2785; J0280; Q9969

== ENCOUNTER 2017-05-14 23:06 | Emergency (ER) | payer MEDICARE, OTHER ==
[2017-05-15 00:04] LABS: ABSOLUTE BASOPHILS # (AUTO) 0.1 10^3/uL (0.0-0.2); ABSOLUTE EOSINOPHILS # (AUTO) 0.2 10^3/uL (0.0-0.6); ABSOLUTE LYMPHOCYTES (AUTO) 0.9 10^3/uL (0.5-4.7); ABSOLUTE MONOCYTES (AUTO) 0.8 10^3/uL (0.1-1.4); ABSOLUTE NEUT (AUTO) 7.6 10^3/uL (1.7-8.2); BASOPHILS % (AUTO) 1.1 % (0-2); EOSINOPHILS % (AUTO) 2.3 % (0-6); HEMATOCRIT 30.5 % (37.9-51.0); HEMOGLOBIN 10.3 g/dL (13.5-17.0); HGB HCT DIFFERENCE 0.4; LYMPHOCYTES % (AUTO) 9.8 % (13-45); MEAN CORPUSCULAR HEMOGLOBIN 31.5 pg (27.0-33.4); MEAN CORPUSCULAR HGB CONC 33.7 g/dL (32.0-36.0); MEAN CORPUSCULAR VOLUME 94 fl (80-97); MONOCYTES % (AUTO) 8.4 % (3-13); RED BLOOD COUNT 3.26 10^6/uL (4.35-5.55); SEGMENTED NEUTROPHILS % (AUTO) 78.4 % (42-78); WHITE BLOOD COUNT 9.7 10^3/uL (4.0-10.5)
[2017-05-15 00:33] LABS: ALANINE AMINOTRANSFERASE 28 U/L (21-72); ALBUMIN 4.3 g/dL (3.5-5.0); ALKALINE PHOSPHATASE 73 U/L (38-126); ANION GAP 19 (5-19); ASPARTATE AMINO TRANSFERASE 30 U/L (17-59); BILIRUBIN,DIRECT 0.7 mg/dL (0.0-0.4); BILIRUBIN,TOTAL 0.7 mg/dL (0.2-1.3); BLOOD UREA NITROGEN 72 mg/dL (7-20); CALCIUM 9.9 mg/dL (8.4-10.2); CARBON DIOXIDE 26 mmol/L (22-30); CHLORIDE 93 mmol/L (98-107); CREATINE KINASE 325 U/L (55-170); CREATININE RESULT 9.75 mg/dL (0.52-1.25); GLUCOSE 159 mg/dL (75-110); SODIUM 138.3 mmol/L (137-145); TOTAL PROTEIN 7.4 g/dL (6.3-8.2)
[2017-05-15 00:36] LABS: PROTHROMBIN TIME 13.5 SEC (11.4-15.4)
[2017-05-15 00:37] LABS: POTASSIUM 6.7 mmol/L (3.6-5.0)
[2017-05-15 00:45] LABS: CREATINE KINASE MB 4.16 ng/mL (<4.55)
[2017-05-15 00:49] LABS: TROPONIN I 0.058 ng/mL
--- NOTE | 2017-05-15 01:27 | RADIOLOGY REPORT (SQ) ---
EXAM DESCRIPTION: CHEST PA/LAT COMPLETED DATE/TIME: 05/15/2017 1:16 am REASON FOR STUDY: chest pain COMPARISON: None. EXAM PARAMETERS: NUMBER OF VIEWS: two views TECHNIQUE: Digital Frontal and Lateral radiographic views of the chest acquired. RADIATION DOSE: NA LIMITATIONS: none FINDINGS: LUNGS AND PLEURA: No opacities, masses or pneumothorax. No pleural effusion. Pulmonary va scular congestion. MEDIASTINUM AND HILAR STRUCTURES: No masses or contour abnormalities. HEART AND VASCULAR STRUCTURES: Heart normal size. No evidence for failure. BONES: No acute findings. Right 5th posterior rib deformity. HARDWARE: Sternotomy. OTHER: No other significant finding. IMPRESSION: Pulmonary vascular congestion. TECHNICAL DOCUMENTATION: JOB ID: [id number] [employer]- All Rights Reserved
[2017-05-15] MEDS ORDERED: CALCIUM GLUCONATE 1000 MG/10 ML INJ IV ONE ×2 (01:38→04:34)
[2017-05-15] MEDS ORDERED: INSULIN REG, HUMAN 100 UNIT/ML 3 ML VIAL (PYX) IV ONE ×2 (01:39→04:28)
[2017-05-15] MEDS ORDERED: DEXTROSE 50%-WATER 25 GM/50 ML DISP.SYRIN IV ONE ×2 (01:39→04:27)
[2017-05-15] MEDS ORDERED: NITROGLYCERIN 2% OINTMENT 1 GM PACKET TP ONE (01:53)
--- NOTE | 2017-05-15 01:53 | ER Document Report ---
ED General - General Chief Complaint: Chest Pain Stated Complaint: COUGH/ CHEST PAIN Time Seen by Provider: 05/15/17 01:37 Mode of Arrival: Ambulatory Information source: Patient Notes: 66-year-old male with a history of end-stage renal disease (on hemodialysis at [facility] Monday, Monday, Monday) who presents to the emergency room with shortness of breath and elevated blood pressure. Patient is supposed to get dialysis this morning at [facility] in 4 hours. TRAVEL OUTSIDE OF THE [place] IN LAST 30 DAYS: No - HPI Onset: This morning Onset/Duration: Gradual Quality of pain: No pain Severity: None Pain Level: Denies Associated symptoms: Shortness of breath. denies: Fever Exacerbated by: Denies Relieved by: Denies Similar symptoms previously: No Recently seen / treated by doctor: No - Related Data Allergies/Adverse Reactions: No Known Allergies Allergy (Verified 10/23/16 22:47) Past Medical History - General Information source: Patient - Social History Smoking Status: Former Smoker Cigarette use (# per day): No Chew tobacco use (# tins/day): No Frequency of alcohol use: None Drug Abuse: None Lives with: Family Family History: Reviewed & Not Pertinent, DM, Hypertension Patient has suicidal ideation: No Patient has homicidal ideation: No - Past Medical History Cardiac Medical History: Reports: Hx Coronary Artery Disease, Hx Heart Attack - 2009, Hx Hypercholesterolemia, Hx Hypertension Denies: Hx Atrial Fibrillation, Hx Peripheral Vascular Disease, Hx Heart Murmur Pulmonary Medical History: Denies: Hx Asthma, Hx Bronchitis, Hx COPD, Hx Pneumonia, Hx Tuberculosis Neurological Medical History: Denies: Hx Cerebrovascular Accident, Hx Seizures Endocrine Medical History: Reports: Hx Diabetes Mellitus Type 1, Hx Diabetes Mellitus Type 2. Denies: Hx Graves' Disease, Hx Hyperthyroidism, Hx Hypothyroidism Renal/ Medical History: Reports: Hx End Stage Renal Disease - dialysis. 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 Denies: Hx Appendectomy, Hx Bowel Surgery, Hx Cholecystectomy, Hx Coronary Artery Bypass Graft, Hx Gastric Bypass Surgery, Hx Herniorrhaphy, Hx Pacemaker, Hx Tonsillectomy. Comment Only: Hx Open Heart Surgery - 2010 - Immunizations Immunizations up to date: No Hx Diphtheria, Pertussis, Tetanus Vaccination: Yes Hx Pneumococcal Vaccination: 06/12/11 Review of Systems - Review of Systems Constitutional: denies: Chills, Fever EENT: No symptoms reported Cardiovascular: See HPI Respiratory: See HPI Gastrointestinal: No symptoms reported Genitourinary: No symptoms reported Male Genitourinary: No symptoms reported Musculoskeletal: No symptoms reported Skin: No symptoms reported Hematologic/Lymphatic: No symptoms reported Neurological/Psychological: No symptoms reported Physical Exam - Vital signs Vitals: Temp Pulse Resp BP Pulse Ox 98.2 F 62 16 203/68 H 95 05/14/17 23:30 05/14/17 23:30 05/14/17 23:30 05/14/17 23:30 05/14/17 23:30 Notes: Physical exam: GENERAL: 66-year-old man, resting in stretcher, no acute distress, does appear to be breathing comfortably HEAD: Atraumatic, normocephalic. EYES: Pupils equal round and reactive to light, extraocular movements intact, sclera anicteric, conjunctiva are normal. ENT: TMs normal, nares patent, oropharynx clear without exudates. Moist mucous membranes. NECK: Normal range of motion, supple without obvious mass or JVD. LUNGS: Breath sounds clear to auscultation bilaterally and equal. No wheezes rales or rhonchi. HEART: Regular rate and rhythm without murmurs, rubs or gallops. ABDOMEN: Soft, normoactive bowel sounds. No tenderness to palpation. No guarding, no rebound. No masses appreciated. EXTREMITIES: Normal range of motion, no pitting or edema. No clubbing or cyanosis. NEUROLOGICAL: Cranial nerves II through XII grossly intact. Normal speech, moving all extremities. PSYCH: Normal mood, normal affect. SKIN: Patient does have a history of skin cancer, she does have lesions to the right side of the face Course - Re-evaluation Re-evalutation: 05/15/17 02:04 Note: The particular situation in this case is of this. The patient requires hemodialysis. We do not have hemodialysis here. There is no naval gunfire liaison officer access control officer at this time. I am treating the hyperkalemia with calcium, D50 and insulin. I am treating the blood pressure and venous congestion with Nitropaste. I have discussed with the patient and his family members at this bedside that normally we would transfer patient for emergent dialysis to either [place], [facility] or [place]. Even if we were to do this, I do not think he could be dialyzed before 6 AM (which is when he is due for dialysis at [facility]). The patient and the family member would like him to go to [facility]. They do not wish to be transferred elsewhere. Thus, we have decided to continue with the treatment as above, watch the patient on a monitor here in the ER and have the patient transferred by ambulance in 3-1/2 hours to dialysis. This is what the patient wants and this is the soonest I most likely can arrange for dialysis. The patient has a pulse ox of 95% on room air currently and appears comfortable sitting in the stretcher. 05/15/17 04:32 Note: The patient is resting comfortably and without complaints. His blood pressure is much better at 160/70. His oxygen saturation is 95% on room air. His pulse is 70 at this time. His respiratory rate is 16. Repeat K show 6.2 which is lower but still elevated. We will give him some more D50 and insulin. He will get some more calcium gluconate. The plan is for discharge at 5:15am with direct transfer to dialysis at [facility]. - Vital Signs Vital signs: Temp Pulse Resp BP Pulse Ox 98.2 F 62 11 L 163/60 H 96 05/15/17 01:53 05/15/17 01:53 05/15/17 04:01 05/15/17 04:01 05/15/17 04:01 - Laboratory Result Diagrams: 05/14/17 23:40 05/15/17 03:15 Laboratory results interpreted by me: 05/14/17 05/14/17 05/15/17 23:40 23:40 03:15 RBC 3.26 L Hgb 10.3 L Hct 30.5 L Seg Neutrophils % 78.4 H Lymphocytes % 9.8 L Potassium 6.7 H* 6.2 H* Chloride 93 L BUN 72 H Creatinine 9.75 H Est GFR ( Amer) 7 L Est GFR (Non-Af Amer) 5 L Glucose 159 H Direct Bilirubin 0.7 H Creatine Kinase 325 H - Diagnostic Test Radiology reviewed: Image reviewed, Reports reviewed - Chest x-ray shows pulmonary congestion. - EKG Interpretation by Me Rate: Normal Rhythm: NSR - EKG shows normal sinus rhythm with a ventricular rate of 66, hyperacute T waves V2, V3 Discharge - Discharge Clinical Impression: Vascular congestion, Hyperkalemia, End-stage renal disease Condition: Stable Disposition: HOME, SELF-CARE Additional Instructions: Recommendations: You going to be transported directly to dialysis. Follow-up with Dr. Villalobos this week. Continue current medicines Return to the emergency room for any problems Referrals: NED VILLALOBOS MD [Primary Care Provider] - Follow up as needed
[2017-05-15] MEDS ORDERED: INSULIN REG, HUMAN 100 UNIT/ML 3 ML VIAL (PYX) ONE (04:42)
[2017-05-15 05:32] VITALS: BP 167/58
--- NOTE | 2017-05-15 06:08 | EKG REPORT ---
SEVERITY:- ABNORMAL ECG - SINUS RHYTHM NONSPECIFIC INTRAVENTRICULAR CONDUCTION DELAY PROBABLE LEFT VENTRICULAR HYPERTROPHY : Confirmed by: Lee Jurado MD 15-May-2017 06:07:35
== END 2017-05-15 05:30 | disposition home or self-care (01) ==
LOC: ER 23:06
DX: N18.6 End stage renal disease (principal); E87.5 Hyperkalemia; R09.89 Other specified symptoms and signs involving the circulatory and respiratory systems; R07.9 Chest pain, unspecified; R05 Cough; Z99.2 Dependence on renal dialysis; R06.02 Shortness of breath; R03.0 Elevated blood-pressure reading, without diagnosis of hypertension; Z87.891 Personal history of nicotine dependence
CPT/HCPCS: 93005; 96376; 99285; 96375; 96365; 96366; 36415; 82553; 82550; 84132; 85025; 85610; 80053; 84484; 71020; 93010; A9270 ×2; J0610; J3490; J1815

== ENCOUNTER 2017-05-24 13:44 | Day surgery (SDC) | payer MEDICARE, OTHER ==
[~2017-05-24 13:44] MED LIST changes: -AMINOPHYLLINE INJ/PF 250 MG/10 ML SDV IV ONE; +CEFAZOLIN 1 GM/D5W RTU 1 GM/50 ML RTUPB IV PRN; -REGADENOSON INJ 0.4 MG/5 ML DISP.SYRIN IV ONE
--- NOTE | 2017-05-24 15:30 | RADIOLOGY REPORT (SQ) ---
EXAM DESCRIPTION: CHEST SINGLE VIEW COMPLETED DATE/TIME: 05/24/2017 3:13 pm REASON FOR STUDY: PREOP COMPARISON: None. EXAM PARAMETERS: NUMBER OF VIEWS: One view. TECHNIQUE: Single frontal radiographic view of the chest acquired. RADIATION DOSE: NA LIMITATIONS: None. FINDINGS: LUNGS AND PLEURA: No opacities, masses or pneumothorax. No pleural effusion. MEDIASTINUM AND HILAR STRUCTURES: No masses. Contour normal. HEART AND VASCULAR STRUCTURES: Heart normal in size. Normal vasculature. BONES: No acute findings. HARDWARE: None in the chest. OTHER: No other significant finding. IMPRESSION: NO ACUTE RADIOGRAPHIC FINDING IN THE CHEST. TECHNICAL DOCUMENTATION: JOB ID: [id number] [employer]- All Rights Reserved
[2017-05-24] MEDS ORDERED: BUPIVACAINE HCL 0.25 % INJ/PF (2.5 MG/1 ML) 30 ML VIAL ONE (16:02)
[2017-05-24] MEDS ORDERED: LIDOCAINE 0.5% INJ-PF (5 MG/ML) 50 ML SDV ONE (16:02)
--- NOTE | 2017-05-24 16:06 | PDOC DISCHARGE SUMMARY ---
Discharge Summary (SDC) - Discharge Final Diagnosis: Left elbow abscess Date of Surgery: 05/24/17 Discharge Date: 05/24/17 Condition: Stable Treatment or Instructions: [facility] [address] [place] [id number] Abscess Drainage Discharge Instructions 1. General Information: a. DO NOT DRIVE a car or operate dangerous machinery for 3-4 days. b. DO NOT consume alcohol, tranquilizers, sleeping medications or any non- prescribed medications for 24 hours unless approved by your doctor or as long as taking narcotic prescription medications. c. DO NOT make important decisions or sign any important papers for the first 24 hours after surgery. d. Have a responsible person with you tonight. 2. Activity Restrictions: 2 weeks a. Avoid heavy lifting or straining until you feel more comfortable. b. It is fine to go for walks, up and down steps, ride in a car. c. Avoid prolonged direct contact or pressure to the area. 3. Treatment: a. You may shower the next day. It is usually best to remove the outer dressing before the shower. Once in the shower, get packing completely wet. Then gently pull out the gauze packing inside the abscess cavity. Wash any soap out of the wound daily. Do not scrub wound. b. After your shower and the packing has been removed you should gently clean the abscess cavity with 2-3 Q-tips and a solution of saline and peroxide that was sent home with you. If you did not receive this solution you can mix peroxide and water as the peroxide will clean even tap water of any bacteria. Insert the Q-tip into the solution and then gently into the abscess cavity to keep the skin edges apart, gently swabbing using a total of 2-3 Q-tips. This helps to keep the skin open to allow the abscess to heal from the inside out. If the skin heals too fast the abscess will reoccur as the skin closes over an open hole. Repack with the 1/4" packing that was provided to you. No wet part should touch the skin edge. Cover the site with a gauze dressing and tape at first after daily wound care. When the drainage is less you may switch over to band-aids if more convenient. 4. Medications: a. You may take the prescription tablets for pain one tablet every 4-6 hours. (__Toradol____). b. Stop the narcotic when able since you cannot take it and drive and they cause constipation. You may switch to plain Tylenol, Advil or Aleve as you transition from the narcotic. Many adults find good pain relief with Advil 600- 800 mg three times a day with meals for short courses.. This can cause indigestion, ulcers, and kidney problems with long-term use. c. Resume all normal medications unless a change is specified by your doctors. d. Stool softeners are encouraged to hel you for 2-4 weeks to maintain a soft stool and avoid more painful bowel movements due to pain medication. Colace is often used. e. Stop taking Keflex. Please start taking Bactrim DS twice a day for 10 days. 5. Diet: a. Begin with clear liquids and if you do well you may then advance to normal foods low in fat and protein at first. Smaller portion size may be cerda the first night. 6. Notify Physician If: a. Worsening of pain not improved with pain medication b. Fever above 101 c. Persistent bleeding or swelling at operative site d. Unable to urinate and uncomfortable bladder 6-8 hours after surgery 7..Follow Up Care: a. Schedule a follow up appointment with your doctor for 2 weeks. In the event of any postoperative problems or questions or you may call the office during business hours or the On-Call physician evenings and weekends at [facility]. [facility] I understand the instructions for my postoperative care as described above and a copy has been given to me. Patient/Significant Other Witness Date Prescriptions: Ketorolac Tromethamine [Toradol 10 mg Tablet] 10 mg PO Q6HP PRN #20 tablet PRN Reason: Referrals: NED VILLALOBOS MD [Primary Care Provider] - Discharge Diet: As Tolerated Discharge Activity: No Lifting/Push/Pulling, Walk Frequently Report the Following to Your Physician Immediately: Fever over 101 Degrees, Unusual Bleeding, Swelling, Drainage-Foul Smelling
[2017-05-24] MEDS ORDERED: FENTANYL CITRATE INJ/PF 100 MCG/2 ML AMPUL ONE ×2 (16:26→17:30)
[2017-05-24] MEDS ORDERED: MIDAZOLAM 2 MG/2 ML INJ ONE (16:26)
[2017-05-24] MEDS ORDERED: PROPOFOL INJ 200 MG/20 ML VIAL IV ONE (16:27)
[2017-05-24] MEDS ORDERED: MEPERIDINE HCL/PF INJ 25 MG/1 ML DISP.SYRIN IV PRN (16:56)
[2017-05-24] MEDS ORDERED: MORPHINE SULFATE 10 MG/ML INJ IV PRN (16:56)
[2017-05-24] MEDS ORDERED: PROMETHAZINE HCL INJ 25 MG/1 ML VIAL IV PRN (16:56)
[2017-05-24] MEDS ORDERED: FENTANYL CITRATE INJ/PF 100 MCG/2 ML AMPUL IV PRN (16:56)
[2017-05-24] MEDS ORDERED: DIPHENHYDRAMINE HCL 50 MG/ML VIAL IV PRN (16:56)
--- NOTE | 2017-05-24 17:13 | Operative Report ---
Operative Report DATE OF SURGERY: 05/24/17 PREOPERATIVE DIAGNOSIS: Abscess left forearm POSTOPERATIVE DIAGNOSIS: Same OPERATION: Excision, drainage, and packing left forearm abscess SURGEON: PAWAN QUINN [employer] ATTENDANT: VIN BEAVERS ANESTHESIA: LMAC TISSUE REMOVED OR ALTERED: Nonviable skin and subcutaneous tissue and muscle COMPLICATIONS: None ESTIMATED BLOOD LOSS: 20 cc INTRAOPERATIVE FINDINGS: See below PROCEDURE: Patient was seen in the preop holding area left arm marked and the patient was taken to the operating room LMAC anesthesia was induced. Left forearm was draped over the patient's chest. The forearm just distal to the elbow was prepped with Betadine. Surgical plan surgical timeout were conducted. Skin was anesthetized with 1% lidocaine plain. A excisional debridement of the forearm was undertaken. Using #10 blade, a hole was made in the skin subcutaneous tissue and the tissue disposed of. The hole was approximately 2 and half centimeters in diameter. Subcutaneous loculations were broken up with finger dissection. There was undermining several centimeters under the skin flaps primarily distally and anteriorly. There did not appear to be penetration deep to the fascia. Wound cavity irrigated, then debrided again superficially with curette. The deep dermis was broken up of any potential loculations with small hemostats. We felt the operation was thorough and complete with adequate debridement of the infection thereby eradicating the septic focus. Wound packed with iodoform packing and 4 x 4. Dry 4 x 4's and Kerlix applied. Patient tolerated procedure well and taken recovery in stable condition. The physician commercial real estate assistant, Ms. Padilla, provided assistance during this case by: Assisting with retracting tissue, instillation of local anesthesia and closure of skin incisions.
[2017-05-24] MEDS ORDERED: HYDRALAZINE HCL 50 MG TABLET PO ONE (19:00)
[2017-05-24] MEDS ORDERED: METOPROLOL TARTRATE 25 MG TABLET PO ONE (19:00)
[2017-05-24 19:50] VITALS: BP 195/86
== END 2017-05-24 19:55 | disposition home or self-care (01) ==
LOC: OROUT 13:44
PROVIDERS: ATTEND Surgery
PROC: 0J9H0ZZ Drainage of Left Lower Arm Subcutaneous Tissue and Fascia, Open Approach (ICD-10-PCS; principal; 2017-05-24 15:30)
DX: L02.419 Cutaneous abscess of limb, unspecified (principal); I12.0 Hypertensive chronic kidney disease with stage 5 chronic kidney disease or end stage renal disease; E11.22 Type 2 diabetes mellitus with diabetic chronic kidney disease; N18.6 End stage renal disease; Z79.899 Other long term (current) drug therapy; Z79.82 Long term (current) use of aspirin; Z79.4 Long term (current) use of insulin; Z99.2 Dependence on renal dialysis; Z85.820 Personal history of malignant melanoma of skin; Z85.828 Personal history of other malignant neoplasm of skin
CPT/HCPCS: 87070; 87205; 82962; 87075; 87077; 87186; 71010; 10060; A6266; J2250; J0690; J3010; A9270 ×2; J2704; 400; J3490

== ENCOUNTER 2017-07-23 13:26 | Emergency (ER) | payer MEDICARE, OTHER ==
--- NOTE | 2017-07-23 15:27 | RADIOLOGY REPORT (SQ) ---
EXAM DESCRIPTION: ANKLE RIGHT COMPLETE COMPLETED DATE/TIME: 07/23/2017 3:16 pm REASON FOR STUDY: injury, pain COMPARISON: None. NUMBER OF VIEWS: Three views. TECHNIQUE: AP, lateral, and oblique radiographic images acquired of the right ankle. LIMITATIONS: None. FINDINGS: MINERALIZATION: Normal. BONES: No acute fracture or dislocation. No worrisome bone lesions. JOINTS: No effusions. SOFT TISSUES: Vascular calcifications. No soft tissue swelling. No foreign body. OTHER: No other significant finding. IMPRESSION: VASCULAR CALCIFICATIONS. NO RADIOGRAPHIC EVIDENCE OF ACUTE INJURY. TECHNICAL DOCUMENTATION: JOB ID: [id number] [employer]- All Rights Reserved
--- NOTE | 2017-07-23 15:28 | RADIOLOGY REPORT (SQ) ---
EXAM DESCRIPTION: FOOT RIGHT COMPLETE COMPLETED DATE/TIME: 07/23/2017 3:16 pm REASON FOR STUDY: injury, pain COMPARISON: None. NUMBER OF VIEWS: Three views. TECHNIQUE: AP, lateral and oblique radiographic images acquired of the right foot. LIMITATIONS: None. FINDINGS: MINERALIZATION: Normal. BONES: No acute fracture or dislocation. No worrisome bone lesions. JOINTS: No effusions. SOFT TISSUES: Vascular calcifications. No soft tissue swelling. No foreign body. OTHER: No other significant finding. IMPRESSION: VASCULAR CALCIFICATIONS. NO RADIOGRAPHIC EVIDENCE OF ACUTE INJURY. TECHNICAL DOCUMENTATION: JOB ID: [id number] [employer] All Rights Reserved
--- NOTE | 2017-07-23 15:57 | ER Document Report ---
ED Extremity Problem, Lower - General Chief Complaint: Foot Injury Stated Complaint: RIGHT FOOT PAIN Time Seen by Provider: 07/23/17 14:35 Mode of Arrival: Ambulatory Information source: Patient Notes: Patient is a 66-year-old male who presents to the ER today for right foot pain after getting in a hole and tripping approximately a week ago. Patient states that he has not really done anything for the pain, nor kept it elevated, has been walking on it normally but that the pain has kept the same. He states that the cat digs in his yard and that is what he twisted his foot and. He denies hitting his head or loss of consciousness during the fall. He denies any other pain anywhere else. He denies numbness or tingling. TRAVEL OUTSIDE OF THE [place] IN LAST 30 DAYS: No - Related Data Allergies/Adverse Reactions: No Known Allergies Allergy (Verified 07/23/17 13:27) Past Medical History - General Information source: Patient - Social History Smoking Status: Never Smoker Chew tobacco use (# tins/day): No Frequency of alcohol use: None Drug Abuse: None Family History: Reviewed & Not Pertinent, DM, Hypertension Patient has suicidal ideation: No Patient has homicidal ideation: No - Past Medical History Cardiac Medical History: Reports: Hx Coronary Artery Disease, Hx Heart Attack - 2009, Hx Hypercholesterolemia, Hx Hypertension Denies: Hx Atrial Fibrillation, Hx Peripheral Vascular Disease, Hx Heart Murmur Pulmonary Medical History: Denies: Hx Asthma, Hx Bronchitis, Hx COPD, Hx Pneumonia, Hx Tuberculosis Neurological Medical History: Denies: Hx Cerebrovascular Accident, Hx Seizures Endocrine Medical History: Reports: Hx Diabetes Mellitus Type 1, Hx Diabetes Mellitus Type 2. Denies: Hx Graves' Disease, Hx Hyperthyroidism, Hx Hypothyroidism Renal/ Medical History: Reports: Hx End Stage Renal Disease - dialysis. 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 Denies: Hx Appendectomy, Hx Bowel Surgery, Hx Cholecystectomy, Hx Coronary Artery Bypass Graft, Hx Gastric Bypass Surgery, Hx Herniorrhaphy, Hx Pacemaker, Hx Tonsillectomy. Comment Only: Hx Open Heart Surgery - 2010 - Immunizations Immunizations up to date: No Hx Diphtheria, Pertussis, Tetanus Vaccination: Yes Hx Pneumococcal Vaccination: 06/12/11 Review of Systems - Review of Systems Constitutional: No symptoms reported EENT: No symptoms reported Cardiovascular: No symptoms reported Respiratory: No symptoms reported Gastrointestinal: No symptoms reported Genitourinary: No symptoms reported Male Genitourinary: No symptoms reported Musculoskeletal: See HPI Skin: No symptoms reported Hematologic/Lymphatic: No symptoms reported Neurological/Psychological: No symptoms reported Physical Exam - Vital signs Vitals: Temp Pulse Resp BP Pulse Ox 97.7 F 52 L 16 185/51 H 97 07/23/17 13:45 07/23/17 13:45 07/23/17 13:45 07/23/17 13:45 07/23/17 13:45 - Notes Notes: PHYSICAL EXAMINATION: GENERAL: Well-appearing and in no acute distress. HEAD: Atraumatic, normocephalic. EYES: Pupils equal round and reactive to light, extraocular movements intact, sclera anicteric, conjunctiva are normal. ENT: ear canals without erythema or foreign body, TMs pearly montejo with good bony landmarks, nares patent, oropharynx clear without exudates. Moist mucous membranes. NECK: Normal range of motion, supple without lymphadenopathy LUNGS: CTAB and equal. No wheezes rales or rhonchi. HEART: Regular rate and rhythm without murmurs ABDOMEN: Soft, no tenderness. No guarding, no rebound BACK: no vertebral tenderness, normal ROM GI/: no CVA tenderness EXTREMITIES: Tender to dorsal and plantar surface of Right foot, normal range of motion, no pitting edema. No cyanosis. NEUROLOGICAL: Cranial nerves grossly intact. Normal sensory/motor exams. PSYCH: Normal mood, normal affect. SKIN: Warm, Dry, normal turgor, no rashes or lesions noted Course - Re-evaluation Re-evalutation: 07/23/17 15:56 X-ray of the foot and ankle negative for any acute pathology. Will place patient in postop shoe for comfort and have advised him to ice it and elevated at home. - Vital Signs Vital signs: Temp Pulse Resp BP Pulse Ox 97.4 F 54 L 16 188/59 H 97 07/23/17 16:07 02/11/18 16:07 07/23/17 16:07 07/23/17 16:07 07/23/17 16:07 Discharge - Discharge Clinical Impression: Right foot injury Qualifiers: Encounter type: initial encounter Qualified Code(s): S99.921A - Unspecified injury of right foot, initial encounter Condition: Stable Disposition: HOME, SELF-CARE Additional Instructions: Return immediately for any new or worsening symptoms. Follow up with primary care provider, call tomorrow to make followup appointment. Referrals: NED VILLALOBOS MD [Primary Care Provider] - Follow up as needed
[2017-07-23 16:10] VITALS: BP 188/59
== END 2017-07-23 16:08 | disposition home or self-care (01) ==
LOC: ER 13:26
DX: S99.921A Unspecified injury of right foot, initial encounter (principal); X50.0XXA Overexertion from strenuous movement or load, initial encounter; E11.22 Type 2 diabetes mellitus with diabetic chronic kidney disease; I12.0 Hypertensive chronic kidney disease with stage 5 chronic kidney disease or end stage renal disease; N18.6 End stage renal disease; Z99.2 Dependence on renal dialysis; I25.10 Atherosclerotic heart disease of native coronary artery without angina pectoris; I25.2 Old myocardial infarction; Z95.1 Presence of aortocoronary bypass graft
CPT/HCPCS: 99283

== ENCOUNTER 2017-10-01 19:22 | Emergency (ER) | payer MEDICARE, OTHER ==
[2017-10-01] MEDS ORDERED: NITROGLYCERIN 0.4 MG/TAB 25 TAB/BOTTLE SL PRN (20:00)
--- NOTE | 2017-10-01 20:03 | ER Document Report ---
ED Medical Screen (RME) - General Chief Complaint: Chest Pain Stated Complaint: CHEST PAIN Time Seen by Provider: 10/01/17 19:53 Notes: RME DISCLOSURE I have seen this patient as part of a Rapid Medical Evaluation and, if applicable, placed any initially appropriate orders. The patient will be seen and fully evaluated, including a full history and physical exam, by a provider ( in Main ED or Fast Track) when a room becomes available. 66-year-old male PMH CABG here with complaints of midsternal nonradiating chest pain shortness of breath lightheadedness nausea ongoing for the past 3 hours. Symptoms started while he was sitting down. He did not notice anything that made it worse. He did take 6 baby aspirins but did not take any nitroglycerin. He last dialyzed 2 days ago and is due for dialysis again tomorrow. He states that his blood pressure is normally as high as it is today (systolic 201) . He has taken his daytime blood pressure medication but has not yet taken his nighttime blood pressure medication that is due in 2 hours (10 PM). TRAVEL OUTSIDE OF THE [place] IN LAST 30 DAYS: No - Related Data Allergies/Adverse Reactions: No Known Allergies Allergy (Verified 10/01/17 19:52) Past Medical History - Social History Chew tobacco use (# tins/day): Yes Frequency of alcohol use: None Drug Abuse: None - Past Medical History Cardiac Medical History: Reports: Hx Coronary Artery Disease, Hx Heart Attack - 2009, Hx Hypercholesterolemia, Hx Hypertension Denies: Hx Atrial Fibrillation, Hx Peripheral Vascular Disease, Hx Heart Murmur Pulmonary Medical History: Denies: Hx Asthma, Hx Bronchitis, Hx COPD, Hx Pneumonia, Hx Tuberculosis Neurological Medical History: Denies: Hx Cerebrovascular Accident, Hx Seizures Endocrine Medical History: Reports: Hx Diabetes Mellitus Type 1, Hx Diabetes Mellitus Type 2. Denies: Hx Graves' Disease, Hx Hyperthyroidism, Hx Hypothyroidism Renal/ Medical History: Reports: Hx End Stage Renal Disease - dialysis. Denies: Hx Peritoneal Dialysis GI Medical History: Denies: Hx Hepatitis, Hx Hiatal Hernia, Hx Ulcer Musculoskeltal Medical History: Reports Hx Arthritis - neck , Denies Hx Fibromyalgia, Denies Hx Muscular Dystrophy Psychiatric Medical History: Reports: Hx Depression Traumatic Medical History: Denies: Hx Fractures Infectious Medical History: Denies: Hx Hepatitis Past Surgical History: Reports: Hx Cardiac Surgery - CABGx3, 2010, Hx Vascular Surgery - fistula left forearm. Denies: Hx Appendectomy, Hx Bowel Surgery, Hx Cholecystectomy, Hx Coronary Artery Bypass Graft, Hx Gastric Bypass Surgery, Hx Herniorrhaphy, Hx Pacemaker, Hx Tonsillectomy. Comment Only: Hx Open Heart Surgery - 2009 - Immunizations Immunizations up to date: No Hx Diphtheria, Pertussis, Tetanus Vaccination: Yes History of Influenza Vaccine for 03/2017 - 08/2017 Season: Yes Influenza Administration Date for 03/2017 - 08/2017 Season: 03/12/17 Physical Exam - Vital signs Vitals: Temp Pulse BP Pulse Ox 98.2 F 64 201/62 H 97 10/01/17 19:35 10/01/17 19:35 10/01/17 19:35 10/01/17 19:35 Course - Vital Signs Vital signs: Temp Pulse Resp BP Pulse Ox 98.2 F 64 201/62 H 97 10/01/17 19:35 10/01/17 19:35 10/01/17 19:35 10/01/17 19:35
--- NOTE | 2017-10-01 20:25 | ER Document Report ---
ED General - General Mode of Arrival: Ambulatory Information source: Patient TRAVEL OUTSIDE OF THE [place] IN LAST 30 DAYS: No <NOMAN ARREGUIN - Last Filed: 10/01/17 20:31> <REGGIE CASTAÑEDA - Last Filed: 10/02/17 00:16> - General Chief Complaint: Chest Pain Stated Complaint: CHEST PAIN Time Seen by Provider: 10/01/17 19:53 Notes: Patient is a 66-year-old male with a history of dialysis, [place](2009), diabetes, hypertension and CAD presents to the emergency department complaining of chest pain onset around 1700 this evening. Patient states that he has taken approximately 6 baby Aspirin in attempt to alleviate his pain but has not taken any nitroglycerin. Patient states that he normally wears a nitro patch at home at night but does not currently have one on. Patient also complains of shortness of breath before his chest pain starts. Patient's PCP is Dr. Harding, his pump room operator is Dr. Bernard and his cyber defense forensics analyst is Dr. Vasquez. Patient currently undergoes MWF dialysis. (NOMAN ARREGUIN) - Related Data Allergies/Adverse Reactions: No Known Allergies Allergy (Verified 10/01/17 19:52) Past Medical History - General Information source: Patient - Social History Smoking Status: Never Smoker Chew tobacco use (# tins/day): Yes Frequency of alcohol use: None Drug Abuse: None Family History: Reviewed & Not Pertinent, DM, Hypertension Patient has suicidal ideation: No Patient has homicidal ideation: No - Past Medical History Cardiac Medical History: Reports: Hx Coronary Artery Disease, Hx Heart Attack - 2009, Hx Hypercholesterolemia, Hx Hypertension Endocrine Medical History: Reports: Hx Diabetes Mellitus Type 1, Hx Diabetes Mellitus Type 2 Renal/ Medical History: Reports: Hx End Stage Renal Disease - dialysis Musculoskeltal Medical History: Reports Hx Arthritis - neck Psychiatric Medical History: Reports: Hx Depression Past Surgical History: Reports: Hx Cardiac Surgery - CABGx3, 2009, Hx Vascular Surgery - fistula left forearmComment Only: Hx Open Heart Surgery - 2009 - Immunizations Immunizations up to date: No Hx Diphtheria, Pertussis, Tetanus Vaccination: Yes Hx Pneumococcal Vaccination: 06/12/11 <NOMAN ARREGUIN - Last Filed: 10/01/17 20:31> Review of Systems - Review of Systems Constitutional: No symptoms reported EENT: No symptoms reported Cardiovascular: See HPI, Chest pain Respiratory: See HPI, Short of breath Gastrointestinal: No symptoms reported Genitourinary: No symptoms reported Male Genitourinary: No symptoms reported Musculoskeletal: No symptoms reported Skin: No symptoms reported Hematologic/Lymphatic: No symptoms reported Neurological/Psychological: No symptoms reported -: Yes All other systems reviewed and negative <NOMAN ARREGUIN - Last Filed: 10/01/17 20:31> Physical Exam - General General appearance: Appears well, Alert In distress: None - HEENT Head: Normocephalic Extraocular movements intact: Yes Pupils: PERRL Mucous membranes: Normal Neck: Normal - Respiratory Respiratory status: No respiratory distress Chest status: Nontender Breath sounds: Normal Chest palpation: Normal - Cardiovascular Rhythm: Regular Heart sounds: Normal auscultation Murmur: No Friction rub: No Gallop: None auscultated - Abdominal Inspection: Normal - Back Back: Normal - Extremities General upper extremity: Normal ROM General lower extremity: Normal ROM Forearm: Other - Shunt located in left distal forearm - Neurological Neuro grossly intact: Yes Cognition: Normal Orientation: AAOx4 [place] Coma Scale Eye Opening: Spontaneous [place] Coma Scale Verbal: Oriented [place] Coma Scale Motor: Obeys Commands Edyta Coma Scale Total: 15 Speech: Normal - Psychological Associated symptoms: Normal affect, Normal mood - Skin Skin Temperature: Warm Skin Moisture: Dry Skin Color: Normal <NOMAN ARREGUIN Last Filed: 10/01/17 20:31> - Vital signs Vitals: Temp Pulse BP Pulse Ox 98.2 F 64 201/62 H 97 10/01/17 19:35 10/01/17 19:35 10/01/17 19:35 10/01/17 19:35 Course <NOMAN ARREGUIN - Last Filed: 10/01/17 20:31> - Laboratory Result Diagrams: 10/01/17 21:14 10/01/17 22:00 - Diagnostic Test Radiology reviewed: Image reviewed - Chest x-ray suggests pulmonary edema, Reports reviewed - Chest x-ray shows interstitial edema - EKG Interpretation by Me EKG shows normal: Sinus rhythm, [place], Intervals, QRS Complexes, ST-T Waves Rate: Normal - 64 Rhythm: NSR [place]/QRS: IVCD Voltage: Consistant with LVH When compared to previous EKG there are: No significant change - Consults Dr. Cristiano Garcia Time consulted: 23:25 Consulted provider: other - Will accept on the hospitalists service at [facility]. <REGGIE CASTAÑEDA - Last Filed: 10/02/17 00:16> - Re-evaluation Re-evalutation: 10/01/17 22:10 Patient was given 1 nitroglycerin sublingual about 8:19 PM, did bring his blood pressure down from just over 200 systolic to about 165 systolic. Blood pressure did eventually start trending back up, however he reports the chest pain went away and he felt well. I gave him an additional nitroglycerin at 10: 10 PM just due to his pressure being higher and will have nitroglycerin paste put on. Chest x-ray suggests that he is developing interstitial edema. He does not make urine. He is supposed to dialyze tomorrow. 10/01/17 22:56 The patient is sleeping at this time. 10/01/17 23:54 The patient remains chest pain-free and is comfortable on nasal cannula oxygen. I discussed the findings, concerns, and need to transfer due to no nephrology coverage, no dialysis available at this facility. In discussing the elevated potassium and potential causes, the patient admits to eating half of a banana sandwich today. (REGGIE CASTAÑEDA) - Vital Signs Vital signs: Temp Pulse Resp BP Pulse Ox 98.2 F 64 19 183/60 H 97 10/01/17 19:35 10/01/17 19:35 10/01/17 23:46 10/01/17 23:46 10/01/17 23:46 - Laboratory Laboratory results interpreted by me: 10/01/17 10/01/17 10/01/17 21:14 22:00 22:00 RBC 3.38 L Hgb 9.8 L Hct 29.8 L RDW 16.3 H Seg Neutrophils % 80.2 H Lymphocytes % 9.6 L Potassium 6.9 H* Chloride 97 L BUN 57 H Creatinine 8.46 H Est GFR ( Amer) 8 L Est GFR (Non-Af Amer) 6 L Glucose 172 H POC Glucose NT-Pro-B Natriuret Pep 95803 H 10/01/17 23:32 RBC Hgb Hct RDW Seg Neutrophils % Lymphocytes % Potassium Chloride BUN Creatinine Est GFR ( Amer) Est GFR (Non-Af Amer) Glucose POC Glucose 153 H NT-Pro-B Natriuret Pep Critical Care Note - Critical Care Note Total time excluding time spent on procedures (mins): 45 <REGGIE CASTAÑEDA - Last Filed: 10/02/17 00:16> Discharge <NOMAN ARREGUIN - Last Filed: 10/01/17 20:31> <REGGIE CASTAÑEDA - Last Filed: 10/02/17 00:16> - Discharge Clinical Impression: End-stage renal disease on hemodialysis, Dietary indiscretion Chest pain Qualifiers: Chest pain type: unspecified Qualified Code(s): R07.9 - Chest pain, unspecified Hypertension Qualifiers: Hypertension type: essential hypertension Qualified Code(s): I10 - Essential ( primary) hypertension Congestive heart failure Qualifiers: Heart failure type: unspecified Heart failure chronicity: acute Qualified Code( s): I50.9 - Heart failure, unspecified Diabetes mellitus type II, controlled Qualifiers: Diabetes mellitus nursing home insulin use: with termite control service representative use Diabetes mellitus complication status: with unspecified complications Qualified Code(s): E11.8 - Type 2 diabetes mellitus with unspecified complications Chronic kidney disease Qualifiers: Chronic kidney disease stage: on chronic dialysis Qualified Code(s): N18.6 - End stage renal disease Coronary artery disease Qualifiers: Coronary Disease-Associated Artery/Lesion type: bypass graft, other Associated angina: with unspecified angina Qualified Code(s): I25.799 - Atherosclerosis of other coronary artery bypass graft(s) with unspecified angina pectoris Condition: Fair Disposition: [facility] Referrals: NED HARDING MD [Primary Care Provider] - Follow up as needed Scribe Attestation: 10/01/17 23:14 I personally performed the services described in the documentation, reviewed and edited the documentation which was dictated to the scribe in my presence, and it accurately records my words and actions. (REGGIE CASTAÑEDA) Scribe Documentation - Scribe Written by Gautam:: Gautam Renee, 10/01/2017 20:28 acting as scribe for :: Oscar <NOMAN ARREGUIN - Last Filed: 10/01/17 20:31>
[2017-10-01 21:25] LABS: ABSOLUTE BASOPHILS # (AUTO) 0.1 10^3/uL (0.0-0.2); ABSOLUTE EOSINOPHILS # (AUTO) 0.2 10^3/uL (0.0-0.6); ABSOLUTE LYMPHOCYTES (AUTO) 0.9 10^3/uL (0.5-4.7); ABSOLUTE MONOCYTES (AUTO) 0.7 10^3/uL (0.1-1.4); ABSOLUTE NEUT (AUTO) 7.3 10^3/uL (1.7-8.2); BASOPHILS % (AUTO) 0.7 % (0-2); EOSINOPHILS % (AUTO) 1.9 % (0-6); HEMATOCRIT 29.8 % (37.9-51.0); HEMOGLOBIN 9.8 g/dL (13.5-17.0); LYMPHOCYTES % (AUTO) 9.6 % (13-45); MEAN CORPUSCULAR HEMOGLOBIN 29.1 pg (27.0-33.4); MEAN CORPUSCULAR HGB CONC 32.9 g/dL (32.0-36.0); MEAN CORPUSCULAR VOLUME 88 fl (80-97); MONOCYTES % (AUTO) 7.6 % (3-13); PLATELET COUNT 195 10^3/uL (150-450); RED BLOOD COUNT 3.38 10^6/uL (4.35-5.55); RED CELL DISTRIBUTION WIDTH 16.3 % (11.5-14.0); SEGMENTED NEUTROPHILS % (AUTO) 80.2 % (42-78); TOTAL CELLS COUNTED % (AUTO) 100 %; WHITE BLOOD COUNT 9.2 10^3/uL (4.0-10.5)
--- NOTE | 2017-10-01 21:52 | EKG REPORT ---
SEVERITY:- ABNORMAL ECG - SINUS RHYTHM NONSPECIFIC INTRAVENTRICULAR CONDUCTION DELAY PROBABLE LVH WITH SECONDARY REPOL ABNRM : Confirmed by: Rani Romero 01-Oct-2017 21:52:18
--- NOTE | 2017-10-01 22:09 | RADIOLOGY REPORT (SQ) ---
EXAM DESCRIPTION: CHEST 2 VIEWS COMPLETED DATE/TIME: 10/01/2017 9:50 pm REASON FOR STUDY: CP SOB COMPARISON: 05/15/2017 EXAM PARAMETERS: NUMBER OF VIEWS: two views TECHNIQUE: Digital Frontal and Lateral radiographic views of the chest acquired. RADIATION DOSE: NA LIMITATIONS: none FINDINGS: LUNGS AND PLEURA: Increased interstitial opacities throughout both lungs. No consolidatio n or significant effusion. No pneumothorax. MEDIASTINUM AND HILAR STRUCTURES: Stable. HEART AND VASCULAR STRUCTURES: Stable. BONES: No acute findings. HARDWARE: CABG. OTHER: No other significant finding. IMPRESSION: Findings most consistent with early interstitial edema. TECHNICAL DOCUMENTATION: JOB ID: [id number] [employer]- All Rights Reserved Reading location - IP/workstation name: [email or web address]
[2017-10-01] MEDS ORDERED: NITROGLYCERIN 2% OINTMENT 1 GM PACKET TP ONE (22:12)
[2017-10-01] MEDS ORDERED: HYDRALAZINE HCL INJ/PF 20 MG/1 ML SDV IV ONE (22:12)
[2017-10-01 22:29] LABS: ANION GAP 19 (5-19); BLOOD UREA NITROGEN 57 mg/dL (7-20); CARBON DIOXIDE 26 mmol/L (22-30); CHLORIDE 97 mmol/L (98-107); GLUCOSE 172 mg/dL (75-110)
[2017-10-01 22:34] LABS: POTASSIUM 6.9 mmol/L (3.6-5.0)
[2017-10-01 22:42] LABS: TROPONIN I 0.02 ng/mL
[2017-10-01] MEDS ORDERED: SODIUM POLYSTYRENE SULFONATE 15 GM/60 ML PO ONE (22:44)
[2017-10-01] MEDS ORDERED: CALCIUM GLUCONATE 1000 MG/10 ML INJ IV ONE (22:45)
[2017-10-01] MEDS ORDERED: DEXTROSE 50%-WATER 25 GM/50 ML DISP.SYRIN IV ONE (22:52)
[2017-10-01] MEDS ORDERED: ALBUTEROL SULFATE 0.083% NEB 2.5 MG/3 ML AMPUL NEB ONE (22:52)
[2017-10-01] MEDS ORDERED: INSULIN REG, HUMAN 100 UNIT/ML 3 ML VIAL (PYX) IV ONE (22:53)
[2017-10-02] MEDS ORDERED: ASPIRIN 81 MG TABLET, CHEWABLE PO ONE (00:14)
[2017-10-02] MEDS ORDERED: HYDRALAZINE HCL INJ/PF 20 MG/1 ML SDV IV ONE (00:16)
[2017-10-02 00:52] VITALS: BP 168/53
== END 2017-10-02 00:57 | disposition short-term general hospital (02) ==
LOC: ER 19:22
DX: I13.2 Hypertensive heart and chronic kidney disease with heart failure and with stage 5 chronic kidney disease, or end stage renal disease (principal); I50.9 Heart failure, unspecified; E11.22 Type 2 diabetes mellitus with diabetic chronic kidney disease; N18.6 End stage renal disease; Z99.2 Dependence on renal dialysis; I25.709 Atherosclerosis of coronary artery bypass graft(s), unspecified, with unspecified angina pectoris; R06.02 Shortness of breath; I45.9 Conduction disorder, unspecified; I25.2 Old myocardial infarction; Z95.1 Presence of aortocoronary bypass graft; I25.799 Atherosclerosis of other coronary artery bypass graft(s) with unspecified angina pectoris
CPT/HCPCS: 93005; 94640; 99291; 96374; 96375; 36415; 82962; 85025; 80048; 84484; 83880; 71046; 93010; A9270 ×3; J0610; J3490; J0360; J1815

== ENCOUNTER 2018-01-10 21:12 | Emergency (ER) | payer MEDICARE, OTHER ==
--- NOTE | 2018-01-10 23:49 | ER Document Report ---
ED ENT - General Chief Complaint: Drainage from Ear Stated Complaint: EAR PAIN Time Seen by Provider: 01/10/18 23:42 Notes: Patient is a 67-year-old male comes emergency department for chief complaint of right ear pain and bleeding from the ear. Pain and bleeding have increased since yesterday. He states that initially was seen for difficulty hearing and pain, was sent to ear nose and throat at [facility], he states that 1 week ago (last Monday) he had a procedure where they put a needle into his ear canal and then pierced his eardrum and injected material. He states he was doing okay until yesterday when he started having the bleeding and pain. He denies fever chills, headache, vomiting, or any other complaints. Patient is not on a blood thinner. He is a diabetic, on dialysis. TRAVEL OUTSIDE OF THE [place] IN LAST 30 DAYS: No - Related Data Allergies/Adverse Reactions: No Known Allergies Allergy (Verified 10/01/17 19:52) Past Medical History - General Information source: Patient - Social History Smoking Status: Never Smoker Frequency of alcohol use: None Drug Abuse: None Lives with: Family Family History: Reviewed & Not Pertinent, DM, Hypertension - Past Medical History Cardiac Medical History: Reports: Hx Coronary Artery Disease, Hx Heart Attack - 2009, Hx Hypercholesterolemia, Hx Hypertension Denies: Hx Atrial Fibrillation, Hx Peripheral Vascular Disease, Hx Heart Murmur Pulmonary Medical History: Denies: Hx Asthma, Hx Bronchitis, Hx COPD, Hx Pneumonia, Hx Tuberculosis Neurological Medical History: Denies: Hx Cerebrovascular Accident, Hx Seizures Endocrine Medical History: Reports: Hx Diabetes Mellitus Type 2. Denies: Hx Graves' Disease, Hx Hyperthyroidism, Hx Hypothyroidism Renal/ Medical History: Reports: Hx End Stage Renal Disease - dialysis. Denies: Hx Peritoneal Dialysis GI Medical History: Denies: Hx Hepatitis, Hx Hiatal Hernia, Hx Ulcer Musculoskeletal Medical History: Reports Hx Arthritis - neck , Denies Hx Fibromyalgia, Denies Hx Muscular Dystrophy Psychiatric Medical History: Reports: Hx Depression Traumatic Medical History: Denies: Hx Fractures Infectious Medical History: Denies: Hx Hepatitis Past Surgical History: Reports: Hx Cardiac Surgery - CABGx3, 2009, Hx Vascular Surgery - fistula left forearm. Denies: Hx Appendectomy, Hx Bowel Surgery, Hx Cholecystectomy, Hx Coronary Artery Bypass Graft, Hx Gastric Bypass Surgery, Hx Herniorrhaphy, Hx Pacemaker, Hx Tonsillectomy. Comment Only: Hx Open Heart Surgery - 2009 - Immunizations Immunizations up to date: No Hx Diphtheria, Pertussis, Tetanus Vaccination: Yes Hx Pneumococcal Vaccination: 06/12/11 Review of Systems - Review of Systems Constitutional: No symptoms reported EENT: See HPI Cardiovascular: No symptoms reported Respiratory: No symptoms reported Gastrointestinal: No symptoms reported Genitourinary: No symptoms reported Male Genitourinary: No symptoms reported Musculoskeletal: No symptoms reported Skin: No symptoms reported Hematologic/Lymphatic: No symptoms reported Neurological/Psychological: No symptoms reported Physical Exam - Vital signs Vitals: Temp Pulse Resp BP Pulse Ox 98.5 F 65 18 187/49 H 97 01/10/18 21:19 01/10/18 21:19 01/10/18 21:19 01/10/18 21:19 01/10/18 21:19 - Notes Notes: GENERAL: Alert, interacts well. No acute distress. Mildly anxious. HEAD: Normocephalic, atraumatic. EYES: Pupils equal, round, and reactive to light. Extraocular movements intact. ENT: Oral mucosa moist, tongue midline. Normal oropharyngeal exam. Left ear is unremarkable. Right ear shows no swelling or tenderness of the external ear , no significant tragus tenderness, normal mastoid. Ear canal shows a small amount of bleeding, erythematous tympanic membrane, difficult to visualize clearly because of eardrops and small amount of blood. Remaining ENT exam is unremarkable. NECK: Full range of motion. Supple. Trachea midline. LUNGS: Clear to auscultation bilaterally, no wheezes, rales, or rhonchi. No respiratory distress. HEART: Regular rate and rhythm. No murmur ABDOMEN: Soft, non-tender. Non-distended. Bowel sounds present in all 4 quadrants. EXTREMITIES: Moves all 4 extremities spontaneously. No edema, normal radial and dorsalis pedis pulses bilaterally. No cyanosis. BACK: no cervical, thoracic, lumbar midline tenderness. No saddle anesthesia, normal distal neurovascular exam. NEUROLOGICAL: Alert and oriented x3. Normal speech. [cranial nerves II through XII grossly intact]. SKIN: Warm, dry, normal turgor. No rashes or lesions noted. Course - Re-evaluation Re-evalutation: Patient is hypertensive in the 180s but he is also somewhat anxious and mildly in pain. He denies headache, chest pain inability to urinate. Essentially asymptomatic hypertension. No fever or tachycardia. I called and spoke with Dr. Bauman, ENT bonded strand operator for [facility]. At this time he recommends Cortisporin suspension, pain medication, and for patient to call their office in the morning at 830 for close follow-up tomorrow for additional evaluation and management. I discussed this with patient, patient states understanding and agreement with plan. - Vital Signs Vital signs: Temp Pulse Resp BP Pulse Ox 97.7 F 67 16 227/84 H 95 01/11/18 01:39 01/11/18 01:39 01/11/18 01:39 01/11/18 01:39 01/11/18 01:39 Discharge - Discharge Clinical Impression: Right ear pain, Bleeding from right ear Condition: Stable Disposition: HOME, SELF-CARE Additional Instructions: I spoke with Dr. Bauman, ENT bonded strand operator at [facility]. Recommendation is for you to have the Cortisporin eardrops, take the pain medication as prescribed, and call the office number listed below at 830 tomorrow morning to be seen in close follow-up at the office for additional management and treatment. Return here if you worsen including fever, vomiting, or any other concerning symptoms. [facility] Address: [address] [place], [place] [address] Prescriptions: Hydrocodone/Acetaminophen [[place] 5-325 mg Tablet] 1 - 2 tab PO ASDIR #10 tablet Neomy Sulf/Polymyx B Sulf/Hc [Cortisporin Otic Susp] 1 drop ASDIR #1 bottle Forms: Elevated Blood Pressure Referrals: NED VILLALOBOS MD [Primary Care Provider] - Follow up as needed
[2018-01-11] MEDS ORDERED: NEOMY SULF/POLYMYX B SULF/HC OTIC SUSP 10 ML AD ONE (00:31)
[2018-01-11] MEDS ORDERED: HYDROCODONE/ACETAMINOPHEN 5-325 MG (6 TAB/ER DISP) PO PRN (00:32)
[2018-01-11] MEDS ORDERED: HYDROCODONE/ACETAMINOPHEN 5-325 MG (6 TAB/ER DISP) ONE (01:34)
[2018-01-11 01:40] VITALS: BP 227/84
== END 2018-01-11 01:43 | disposition home or self-care (01) ==
LOC: ER 21:12
DX: H92.21 Otorrhagia, right ear (principal); H92.01 Otalgia, right ear; I25.10 Atherosclerotic heart disease of native coronary artery without angina pectoris; E11.22 Type 2 diabetes mellitus with diabetic chronic kidney disease; I12.0 Hypertensive chronic kidney disease with stage 5 chronic kidney disease or end stage renal disease; N18.6 End stage renal disease; Z99.2 Dependence on renal dialysis; Z98.890 Other specified postprocedural states; Z95.1 Presence of aortocoronary bypass graft
CPT/HCPCS: 99282

== ENCOUNTER 2018-04-09 13:36 | Inpatient (IN) | payer MEDICARE, OTHER ==
[2018-04-09] MEDS ORDERED: ASPIRIN 81 MG TABLET, CHEWABLE PO ONE (14:15)
--- NOTE | 2018-04-09 14:17 | ER Document Report ---
ED Medical Screen (RME) - General Chief Complaint: Chest Pain Stated Complaint: CHEST PAIN, SHORTNESS OF BREATH Time Seen by Provider: 04/09/18 14:14 Notes: 67 years old male with a history of coronary artery bypass surgery, hypertension , diabetes, facial skin cancer, presents today with episodes of chest tightness difficulty in breathing since yesterday. Denies any nausea vomiting. Denies any left arm numbness tingling sensation palpitation or diaphoresis. Coughing on and off largely dry cough. No fever chills. On examination-multiple skin lesions noted on the face. Lung sounds clear normal heart sounds TRAVEL OUTSIDE OF THE [place] IN LAST 30 DAYS: No - Related Data Allergies/Adverse Reactions: No Known Allergies Allergy (Verified 04/09/18 13:37) Past Medical History - Past Medical History Cardiac Medical History: Reports: Hx Coronary Artery Disease, Hx Heart Attack - 2009, Hx Hypercholesterolemia, Hx Hypertension Denies: Hx Atrial Fibrillation, Hx Peripheral Vascular Disease, Hx Heart Murmur Pulmonary Medical History: Denies: Hx Asthma, Hx Bronchitis, Hx COPD, Hx Pneumonia, Hx Tuberculosis Neurological Medical History: Denies: Hx Cerebrovascular Accident, Hx Seizures Endocrine Medical History: Reports: Hx Diabetes Mellitus Type 1, Hx Diabetes Mellitus Type 2. Denies: Hx Graves' Disease, Hx Hyperthyroidism, Hx Hypothyroidism Renal/ Medical History: Reports: Hx End Stage Renal Disease - dialysis. Denies: Hx Peritoneal Dialysis GI Medical History: Denies: Hx Hepatitis, Hx Hiatal Hernia, Hx Ulcer Musculoskeltal Medical History: Reports Hx Arthritis - neck , Denies Hx Fibromyalgia, Denies Hx Muscular Dystrophy Psychiatric Medical History: Reports: Hx Depression Traumatic Medical History: Denies: Hx Fractures Infectious Medical History: Denies: Hx Hepatitis Past Surgical History: Reports: Hx Cardiac Surgery - CABGx3, 2010, Hx Vascular Surgery - fistula left forearm. Denies: Hx Appendectomy, Hx Bowel Surgery, Hx Cholecystectomy, Hx Coronary Artery Bypass Graft, Hx Gastric Bypass Surgery, Hx Herniorrhaphy, Hx Pacemaker, Hx Tonsillectomy. Comment Only: Hx Open Heart Surgery - 2009 - Immunizations Immunizations up to date: No Hx Diphtheria, Pertussis, Tetanus Vaccination: Yes History of Influenza Vaccine for 03/2017 - 08/2017 Season: Yes Influenza Administration Date for 03/2017 - 08/2017 Season: 03/12/17 Physical Exam - Vital signs Vitals: Temp Pulse Resp BP Pulse Ox 98.4 F 64 18 182/61 H 96 04/09/18 13:50 04/09/18 13:50 04/09/18 13:50 04/09/18 13:50 04/09/18 13:50 Course - Vital Signs Vital signs: Temp Pulse Resp BP Pulse Ox 98.4 F 64 18 182/61 H 96 04/09/18 13:50 04/09/18 13:50 04/09/18 13:50 04/09/18 13:50 04/09/18 13:50 Doctor's Discharge - Discharge Referrals: CHRISTY MCMAHON PA-C [Primary Care Provider] - Follow up as needed
[2018-04-09 14:52] LABS: ABSOLUTE BASOPHILS # (AUTO) 0.1 10^3/uL (0.0-0.2); ABSOLUTE EOSINOPHILS # (AUTO) 0.2 10^3/uL (0.0-0.6); ABSOLUTE LYMPHOCYTES (AUTO) 0.5 10^3/uL (0.5-4.7); ABSOLUTE MONOCYTES (AUTO) 0.4 10^3/uL (0.1-1.4); ABSOLUTE NEUT (AUTO) 3.9 10^3/uL (1.7-8.2); BASOPHILS % (AUTO) 1.2 % (0-2); EOSINOPHILS % (AUTO) 3.1 % (0-6); HEMATOCRIT 34.5 % (37.9-51.0); HEMOGLOBIN 11.3 g/dL (13.5-17.0); LYMPHOCYTES % (AUTO) 10.2 % (13-45); MEAN CORPUSCULAR HEMOGLOBIN 28.3 pg (27.0-33.4); MEAN CORPUSCULAR HGB CONC 32.7 g/dL (32.0-36.0); MEAN CORPUSCULAR VOLUME 86 fl (80-97); MONOCYTES % (AUTO) 7.2 % (3-13); PLATELET COUNT 180 10^3/uL (150-450); RED BLOOD COUNT 3.99 10^6/uL (4.35-5.55); RED CELL DISTRIBUTION WIDTH 20.2 % (11.5-14.0); SEGMENTED NEUTROPHILS % (AUTO) 78.3 % (42-78); TOTAL CELLS COUNTED % (AUTO) 100 %; WHITE BLOOD COUNT 4.9 10^3/uL (4.0-10.5)
--- NOTE | 2018-04-09 15:14 | RADIOLOGY REPORT (SQ) ---
EXAM DESCRIPTION: CHEST SINGLE VIEW COMPLETED DATE/TIME: 04/09/2018 2:59 pm REASON FOR STUDY: Chest pain COMPARISON: September 2017 EXAM PARAMETERS: NUMBER OF VIEWS: One view. TECHNIQUE: Single frontal radiographic view of the chest acquired. RADIATION DOSE: NA LIMITATIONS: None. FINDINGS: LUNGS AND PLEURA: No acute consolidations. There is some interstitial prominence suggesti ng interstitial edema. There is some minimal blunting of the costophrenic angles which I cannot excl ude is tiny pleural effusions. MEDIASTINUM AND HILAR STRUCTURES: No masses. Contour normal. HEART AND VASCULAR STRUCTURES: Cardiac silhouette is enlarged. There is pulmonary vascular congestio n BONES: No acute findings. HARDWARE: Patient is status post median sternotomy. OTHER: No other significant finding. IMPRESSION: Findings consistent with a compensated cardiac status or mild degree of congestive failu re. TECHNICAL DOCUMENTATION: JOB ID: [id number] [employer]- All Rights Reserved Reading location - IP/workstation name: [email or web address]
[2018-04-09 15:16] LABS: ALANINE AMINOTRANSFERASE 8 U/L (21-72); ALBUMIN 4.4 g/dL (3.5-5.0); ALKALINE PHOSPHATASE 85 U/L (38-126); ANION GAP 16 (5-19); ASPARTATE AMINO TRANSFERASE 25 U/L (17-59); BILIRUBIN,DIRECT 0.9 mg/dL (0.0-0.4); BILIRUBIN,TOTAL 1.3 mg/dL (0.2-1.3); BLOOD UREA NITROGEN 21 mg/dL (7-20); CALCIUM 9.6 mg/dL (8.4-10.2); CARBON DIOXIDE 30 mmol/L (22-30); CHLORIDE 95 mmol/L (98-107); CREATINE KINASE 98 U/L (55-170); GLUCOSE 195 mg/dL (75-110); POTASSIUM 4.4 mmol/L (3.6-5.0); SODIUM 141.1 mmol/L (137-145); TOTAL PROTEIN 8.3 g/dL (6.3-8.2)
[2018-04-09 15:27] LABS: CREATINE KINASE MB 2.48 ng/mL (<4.55)
[2018-04-09 15:33] LABS: TROPONIN I 0.045 ng/mL
--- NOTE | 2018-04-09 16:10 | ER Document Report ---
ED Cardiac - General Chief Complaint: Chest Pain Stated Complaint: CHEST PAIN, SHORTNESS OF BREATH Time Seen by Provider: 04/09/18 14:14 TRAVEL OUTSIDE OF THE [place] IN LAST 30 DAYS: No - HPI Patient complains to provider of: Chest tightness Was the onset of pain: Sudden Quality of pain: Constant Chest pain radiation location: None Severity now: Moderate Severity at worst: Moderate Chest pain precipitating factors: At Rest Cardiac risk factors: Hx RI Positive cardiac history: Yes Associated symptoms: Shortness of breath Exacerbated by: Denies Relieved by: Nothing Notes: Patient is a 67-year-old male that presents to the emergency department for chief complaint of chest pain. Patient's pain started when he woke up this morning. He reports it is a diffuse heaviness across his chest. He denies any aggravating or relieving factors. He received. Past Medical History: CHF, CKD, CAD Past Surgical History: CABG x3 Social History: Chewing tobacco. Denies drug and alcohol use Family History: Reviewed and noncontributory for presenting illness Allergies: Reviewed, see documented allergy list. REVIEW OF SYSTEMS: CONSTITUTIONAL : No fever No chills No diaphoresis No recent illness EENT: No vision changes No congestion No sore throat CARDIOVASCULAR: chest pain No palpitations RESPIRATORY: shortness of breath No cough No difficulty breathing GASTROINTESTINAL: No abdominal pain No nausea No vomiting No diarrhea GENITOURINARY: No dysuria No hematuria No difficulty urinating MUSCULOSKELETAL: No back pain No leg pain No arm pain SKIN: No rashes No lesions LYMPHATIC: No swollen, enlarged glands. NEUROLOGICAL: No lightheadedness No headache No weakness No paresthesias PSYCHIATRIC: No anxiety No depression PHYSICAL EXAMINATION: Vital signs reviewed, nursing noted reviewed. GENERAL: Well-appearing, well-nourished and in no acute distress. HEAD: Atraumatic, normocephalic. EYES: Eyes appear normal, extraocular movements intact, sclera anicteric, conjunctiva are normal. ENT: nares patent, oropharynx clear without exudates. Moist mucous membranes. NECK: Normal range of motion, supple without lymphadenopathy LUNGS: Breath sounds clear to auscultation bilaterally and equal. No wheezes rales or rhonchi. HEART: Regular rate and rhythm without murmurs ABDOMEN: Soft, nontender, normoactive bowel sounds. No rebound, guarding, or rigidity. No masses appreciated. EXTREMITIES: Nontender, good range of motion, trace pretibial edema NEUROLOGICAL: No focal neurological deficits. Moves all extremities spontaneously Motor and sensory grossly intact on exam. PSYCH: Normal mood, normal affect. SKIN: Warm, Dry, normal turgor, no rashes or lesions noted on exposed skin - Related Data Allergies/Adverse Reactions: No Known Allergies Allergy (Verified 04/09/18 13:37) Past Medical History - Social History Smoking Status: Never Smoker Chew tobacco use (# tins/day): Yes Frequency of alcohol use: None Drug Abuse: None Family History: Reviewed & Not Pertinent, DM, Hypertension Patient has suicidal ideation: No Patient has homicidal ideation: No - Past Medical History Cardiac Medical History: Reports: Hx Coronary Artery Disease, Hx Heart Attack - 2009, Hx Hypercholesterolemia, Hx Hypertension Denies: Hx Atrial Fibrillation, Hx Peripheral Vascular Disease, Hx Heart Murmur Pulmonary Medical History: Denies: Hx Asthma, Hx Bronchitis, Hx COPD, Hx Pneumonia, Hx Tuberculosis Neurological Medical History: Denies: Hx Cerebrovascular Accident, Hx Seizures Endocrine Medical History: Reports: Hx Diabetes Mellitus Type 1, Hx Diabetes Mellitus Type 2. Denies: Hx Graves' Disease, Hx Hyperthyroidism, Hx Hypothyroidism Renal/ Medical History: Reports: Hx End Stage Renal Disease - dialysis. Denies: Hx Peritoneal Dialysis GI Medical History: Denies: Hx Hepatitis, Hx Hiatal Hernia, Hx Ulcer Musculoskeletal Medical History: Reports Hx Arthritis - neck , Denies Hx Fibromyalgia, Denies Hx Muscular Dystrophy Psychiatric Medical History: Reports: Hx Depression Traumatic Medical History: Denies: Hx Fractures Infectious Medical History: Denies: Hx Hepatitis Past Surgical History: Reports: Hx Cardiac Surgery - CABGx3, 2009, Hx Vascular Surgery - fistula left forearm. Denies: Hx Appendectomy, Hx Bowel Surgery, Hx Cholecystectomy, Hx Coronary Artery Bypass Graft, Hx Gastric Bypass Surgery, Hx Herniorrhaphy, Hx Pacemaker, Hx Tonsillectomy. Comment Only: Hx Open Heart Surgery - 2009 - Immunizations Immunizations up to date: No Hx Diphtheria, Pertussis, Tetanus Vaccination: Yes Hx Pneumococcal Vaccination: 06/12/11 Review of Systems - Review of Systems Notes: Dictated Physical Exam - Vital signs Vitals: Temp Pulse Resp BP Pulse Ox 98.4 F 64 18 182/61 H 96 04/09/18 13:50 04/09/18 13:50 04/09/18 13:50 04/09/18 13:50 04/09/18 13:50 - Notes Notes: Dictated Course - Re-evaluation Re-evalutation: 04/09/18 16:08 Vitals reviewed. Nursing notes reviewed. EKG shows new T wave inversions compared to 09/2017. Chest x-ray is consistent with congestive heart failure. Patient has unremarkable troponin level. His creatinine and is at 4.76 however his potassium and other electrolytes are normal. Laboratory 04/09/18 04/09/18 04/09/18 14:29 14:29 14:29 WBC 4.9 RBC 3.99 L Hgb 11.3 L Hct 34.5 L MCV 86 MCH 28.3 MCHC 32.7 RDW 20.2 H Plt Count 180 Seg Neutrophils % 78.3 H Lymphocytes % 10.2 L Monocytes % 7.2 Eosinophils % 3.1 Basophils % 1.2 Absolute Neutrophils 3.9 Absolute Lymphocytes 0.5 Absolute Monocytes 0.4 Absolute Eosinophils 0.2 Absolute Basophils 0.1 Sodium 141.1 Potassium 4.4 Chloride 95 L Carbon Dioxide 30 Anion Gap 16 BUN 21 H Creatinine 4.76 H Est GFR ( Amer) 15 L Est GFR (Non-Af Amer) 12 L Glucose 195 H Calcium 9.6 Total Bilirubin 1.3 Direct Bilirubin 0.9 H Neonat Total Bilirubin Not Reportable Neonat Direct Bilirubin Not Reportable Neonat Indirect Bili Not Reportable AST 25 ALT 8 L Alkaline Phosphatase 85 Creatine Kinase 98 CK-MB (CK-2) 2.48 Troponin I 0.045 Total Protein 8.3 H Albumin 4.4 Chest X-Ray 04/09/18 14:15 IMPRESSION: Findings consistent with a compensated cardiac status or mild degree of congestive failure. Patient given nitroglycerin for further pain control. - Vital Signs Vital signs: Temp Pulse Resp BP Pulse Ox 98.4 F 64 31 H 180/70 H 94 04/09/18 13:50 04/09/18 13:50 04/09/18 16:30 04/09/18 16:30 04/09/18 16:30 - Laboratory Result Diagrams: 04/09/18 14:29 04/09/18 14:29 Laboratory results interpreted by me: 04/09/18 04/09/18 14:29 14:29 RBC 3.99 L Hgb 11.3 L Hct 34.5 L RDW 20.2 H Seg Neutrophils % 78.3 H Lymphocytes % 10.2 L Chloride 95 L BUN 21 H Creatinine 4.76 H Est GFR ( Amer) 15 L Est GFR (Non-Af Amer) 12 L Glucose 195 H Direct Bilirubin 0.9 H ALT 8 L Total Protein 8.3 H - EKG Interpretation by Me Additional EKG results interpreted by me: 04/09/18 16:10 Interpreted by myself 1345: Normal sinus rhythm, rate 64, normal axis, no ectopy, new T wave inversions V4 through V6 compared to 10/01/17, ST elevation V2 which was seen on 10/01/17. Discharge - Discharge Clinical Impression: EKG abnormalities Chest pain Qualifiers: Chest pain type: unspecified Qualified Code(s): R07.9 - Chest pain, unspecified Condition: Stable Disposition: ADMITTED OBSERVATION Admitting Provider: [facility] Admitted: Telemetry
[2018-04-09] MEDS: NITROGLYCERIN 0.4 MG/TAB 25 TAB/BOTTLE SL PRN ×2 (16:17→16:30)
[2018-04-09] MEDS ORDERED: ACETAMINOPHEN 325 MG TABLET PO PRN (16:54)
[2018-04-09] MEDS ORDERED: IPRATROPIUM/ALBUTEROL 0.5-2.5 MG/3 ML AMPUL NEB PRN (16:54)
[2018-04-09] MEDS ORDERED: OXYCODONE-ACETAMINOPHEN 5-325 MG TABLET PO PRN (16:54)
[2018-04-09] MEDS ORDERED: INSULIN LISPRO 100 UNIT/ML 3 ML VIAL SUBCUT PRN (16:58)
[2018-04-09] MEDS ORDERED: GLUCAGON,HUMAN RECOMB 1 MG INJ IM PRN (16:58)
[2018-04-09] MEDS ORDERED: DEXTROSE 40% GEL 15 GM TUBE PO PRN ×2 (16:58)
[2018-04-09] MEDS ORDERED: DEXTROSE 50%-WATER 25 GM/50 ML DISP.SYRIN IV PRN ×2 (16:58)
--- NOTE | 2018-04-09 17:44 | PDOC H&P ---
History of Present Illness Admission Date/PCP: 04/09/18 17:07 CHRISTY MCMAHON PA-C Patient complains of: chest pain History of Present Illness: MIRI BENJAMIN is a 67 year old male pt came with c/o chest pain since last 1wk on and off pt recived 2 misty and no chest pain pt also mild ekg change pt also admiteed in [facility] in september 2017 for chest pain and did not have any stress test pt bp always run 170 range Past Medical History Cardiac Medical History: Reports: Coronary Artery Disease, Myocardial Infarction - 2009, Hyperlipidema, Hypertension Denies: Atrial Fibrillation, Peripheral Vascular Disease, Heart Murmur Pulmonary Medical History: Denies: Asthma, Bronchitis, Chronic Obstructive Pulmonary Disease (COPD), Pneumonia, Tuberculosis Neurological Medical History: Denies: Seizures Endocrine Medical History: Reports: Diabetes Mellitus Type 2 Denies: Hyperthyroidism, Hypothyroidism Renal/ Medical History: Reports: End Stage Renal Disease - dialysis GI Medical History: Denies: Hepatitis, Hiatal Hernia Musculoskeltal Medical History: Reports: Arthritis - neck Denies: Fibromyalgia Psychiatric Medical History: Reports: Depression Hematology: Denies: Anemia, Sickle Cell Disease Past Surgical History Past Surgical History: Reports: Cardiac Catheterization, Coronary Artery Bypass Graft, Vascular Surgery - fistula left forearm Denies: Appendectomy, Cholecystectomy, Gastric Bypass Surgery, Herniorrhaphy , Pacemaker, Tonsillectomy Social History Smoking Status: Never Smoker Frequency of Alcohol Use: None Hx Recreational Drug Use: No Hx Prescription Drug Abuse: No Family History Family History: Reviewed & Not Pertinent, DM, Hypertension Parental Family History Reviewed: Yes Children Family History Reviewed: Yes Sibling(s) Family History Reviewed.: Yes Medication/Allergy Allergies/Adverse Reactions: No Known Allergies Allergy (Verified 04/09/18 13:37) Review of Systems Constitutional: ABSENT: chills, fever(s), headache(s), weight gain, weight loss Eyes: ABSENT: visual disturbances Ears: ABSENT: hearing changes Cardiovascular: PRESENT: chest pain. ABSENT: edema, orthropnea, palpitations Respiratory: ABSENT: cough, hemoptysis Gastrointestinal: ABSENT: abdominal pain, constipation, diarrhea, hematemesis, hematochezia, nausea, vomiting Genitourinary: ABSENT: dysuria, hematuria Musculoskeletal: ABSENT: joint swelling Integumentary: ABSENT: rash, wounds Neurological: ABSENT: abnormal gait, abnormal speech, confusion, dizziness, focal weakness, syncope Psychiatric: ABSENT: anxiety, depression, homidical ideation, suicidal ideation Endocrine: ABSENT: cold intolerance, heat intolerance, menstrual abnormalities, polydipsia, polyuria Hematologic/Lymphatic: ABSENT: easy bleeding, easy bruising, lymphadenopathy Physical Exam Vital Signs: Temp Pulse Resp BP Pulse Ox 98.4 F 64 31 H 180/70 H 94 04/09/18 13:50 04/09/18 13:50 04/09/18 16:30 04/09/18 16:30 04/09/18 16:30 General appearance: PRESENT: no acute distress, well-developed, well-nourished Head exam: PRESENT: atraumatic, normocephalic Eye exam: PRESENT: conjunctiva pink, EOMI, PERRLA. ABSENT: scleral icterus Ear exam: PRESENT: normal external ear exam Mouth exam: PRESENT: moist, tongue midline Neck exam: PRESENT: full ROM. ABSENT: carotid bruit, JVD, lymphadenopathy, thyromegaly Respiratory exam: PRESENT: clear to auscultation sarah Cardiovascular exam: PRESENT: RRR. ABSENT: diastolic murmur, rubs, systolic murmur Pulses: PRESENT: normal dorsalis pedis pul, +2 pedal pulses bilateral Vascular exam: PRESENT: normal capillary refill GI/Abdominal exam: PRESENT: normal bowel sounds, soft. ABSENT: distended, guarding, mass, organolmegaly, rebound, tenderness Rectal exam: PRESENT: deferred Extremities exam: ABSENT: pedal edema Musculoskeletal exam: PRESENT: ambulatory Neurological exam: PRESENT: alert, awake, oriented to person, oriented to place , oriented to time, oriented to situation, CN II-XII grossly intact. ABSENT: motor sensory deficit Psychiatric exam: PRESENT: appropriate affect, normal mood. ABSENT: homicidal ideation, suicidal ideation Skin exam: PRESENT: dry, intact, warm. ABSENT: cyanosis, rash Results Impressions: Chest X-Ray 04/09/18 14:15 IMPRESSION: Findings consistent with a compensated cardiac status or mild degree of congestive failure. Assessment & Plan - Diagnosis (1) Chest pain Qualifiers: Chest pain type: unspecified Qualified Code(s): R07.9 - Chest pain, unspecified Is this a current diagnosis for this admission?: Yes Plan: admit in [facility] do serial cardic enzyme last stress test was 2 y back consult cardilogy (2) ESRD (end stage renal disease) on dialysis Is this a current diagnosis for this admission?: Yes Plan: consult nephrology (3) Coronary arteriosclerosis after coronary artery bypass grafting Is this a current diagnosis for this admission?: Yes (4) Hyperlipidemia Qualifiers: Is this a current diagnosis for this admission?: Yes (5) Hypertension Qualifiers: Hypertension type: essential hypertension Qualified Code(s): I10 - Essential (primary) hypertension Is this a current diagnosis for this admission?: Yes Plan: cont curr med (6) Type 2 diabetes mellitus Qualifiers: Diabetes mellitus intermediate manager insulin use: unspecified custodial insulin use status Chronic kidney disease stage: on chronic dialysis Is this a current diagnosis for this admission?: Yes Plan: [facility] ss and cont curr med - Time Time Spent: 30 to 50 Minutes Medications reviewed and adjusted accordingly: Yes Anticipated discharge: Home Within: Other - Inpatient Certification Based on my medical assessment, after consideration of the patient's comorbidities, presenting symptoms, or acuity I expect that the services needed warrant INPATIENT care.: Yes I certify that my determination is in accordance with my understanding of Medicare's requirements for reasonable and necessary INPATIENT services [42 CFR 412.3e].: Yes Medical Necessity: Significant Comorbidiites Make Outpatient Treatment Too Risky , Need Close Monitoring Due to Risk of Patient Decompensation Post Hospital Care: D/C Echo Tech Documentation - Plan Summary Plan Summary: admit in [facility] see md order
[2018-04-09] MEDS ORDERED: CLONIDINE HCL 0.1 MG TABLET PO ONE (17:48)
[2018-04-09] MEDS ORDERED: GABAPENTIN 300 MG CAPSULE PO SCH (18:00)
[2018-04-09] MEDS ORDERED: (PENDING PHARMACY ID) (Hydralazine Hcl [Hydralazine Hcl] 100 MG) PO SCH (18:00)
[2018-04-09 19:13] LABS: CREATINE KINASE MB 1.98 ng/mL (<4.55); TROPONIN I 0.036 ng/mL
[2018-04-09] MEDS ORDERED: CALCIUM ACETATE 667 MG CAPSULE PO PRN (20:10)
[2018-04-09] MEDS ORDERED: HYDROCORTISONE 1% CREAM 28.35 GM TP PRN (21:07)
[2018-04-09] MEDS: DOCUSATE SODIUM 100 MG CAPSULE PO SCH (21:16)
[2018-04-09] MEDS: FAMOTIDINE 20 MG TABLET PO SCH (21:16)
[2018-04-09] MEDS: GABAPENTIN 300 MG CAPSULE PO SCH (21:16)
[2018-04-09] MEDS: HYDRALAZINE HCL 50 MG TABLET PO SCH (21:17)
[2018-04-09] MEDS: HEPARIN SOD (PORCINE) 5,000 UNIT/ML 1 ML SYRINGE SUBCUT SCH (21:17)
--- NOTE | 2018-04-09 21:57 | EKG REPORT ---
SEVERITY:- ABNORMAL ECG - SINUS RHYTHM ABNORMAL T, CONSIDER ISCHEMIA, LATERAL LEADS PROLONGED QT INTERVAL : Confirmed by: Jo Pacheco MD 09-Apr-2018 21:56:45
[2018-04-09] MEDS ORDERED: CLONIDINE HCL 0.2 MG TABLET PO SCH (22:00)
[2018-04-09] MEDS ORDERED: AMLODIPINE BESYLATE 10 MG TABLET PO SCH (22:00)
[2018-04-09] MEDS ORDERED: INSULIN GLARGINE,HUM.REC.ANLOG 300 UNIT/3 ML INSULN.PEN SUBCUT SCH (22:00)
[2018-04-09] MEDS ORDERED: INSULIN GLARGINE,HUM.REC.ANLOG 1,000 UNIT/10 ML UNIT SUBCUT SCH (22:00)
[2018-04-09] MEDS ORDERED: DOXAZOSIN MESYLATE 4 MG TABLET PO SCH (22:00)
[2018-04-09] MEDS: HYDRALAZINE HCL INJ/PF 20 MG/1 ML SDV IV PRN (23:19)
[2018-04-10 00:18] LABS: CREATINE KINASE MB 1.54 ng/mL (<4.55); TROPONIN I 0.039 ng/mL
[2018-04-10] MEDS: GABAPENTIN 300 MG CAPSULE PO SCH ×2 (05:42→13:28)
[2018-04-10] MEDS: HYDRALAZINE HCL 50 MG TABLET PO SCH ×2 (05:44→13:28)
[2018-04-10] MEDS: HEPARIN SOD (PORCINE) 5,000 UNIT/ML 1 ML SYRINGE SUBCUT SCH ×2 (05:45→13:29)
[2018-04-10 06:12] LABS: ABSOLUTE BASOPHILS # (AUTO) 0.1 10^3/uL (0.0-0.2); ABSOLUTE LYMPHOCYTES (AUTO) 0.4 10^3/uL (0.5-4.7); ABSOLUTE MONOCYTES (AUTO) 0.8 10^3/uL (0.1-1.4); ABSOLUTE NEUT (AUTO) 5.7 10^3/uL (1.7-8.2); BASOPHILS % (AUTO) 0.8 % (0-2); EOSINOPHILS % (AUTO) 0.5 % (0-6); HEMATOCRIT 33.5 % (37.9-51.0); LYMPHOCYTES % (AUTO) 6.1 % (13-45); MEAN CORPUSCULAR HEMOGLOBIN 28.1 pg (27.0-33.4); MEAN CORPUSCULAR HGB CONC 32.8 g/dL (32.0-36.0); MEAN CORPUSCULAR VOLUME 86 fl (80-97); MONOCYTES % (AUTO) 10.8 % (3-13); PLATELET COUNT 166 10^3/uL (150-450); RED CELL DISTRIBUTION WIDTH 20.1 % (11.5-14.0); SEGMENTED NEUTROPHILS % (AUTO) 81.8 % (42-78); TOTAL CELLS COUNTED % (AUTO) 100 %
[2018-04-10 06:36] LABS: CREATINE KINASE MB 1.13 ng/mL (<4.55); TROPONIN I 0.039 ng/mL
[2018-04-10 06:38] LABS: ANION GAP 16 (5-19); BLOOD UREA NITROGEN 33 mg/dL (7-20); CALCIUM 9.6 mg/dL (8.4-10.2); CARBON DIOXIDE 28 mmol/L (22-30); CHLORIDE 99 mmol/L (98-107); CREATINE KINASE 76 U/L (55-170); GLUCOSE 99 mg/dL (75-110); POTASSIUM 4.7 mmol/L (3.6-5.0); SODIUM 142.6 mmol/L (137-145)
[2018-04-10] MEDS ORDERED: FUROSEMIDE 40 MG TABLET PO SCH ×2 (08:00→12:00)
--- NOTE | 2018-04-10 08:29 | PDOC PROGRESS REPORT ---
Subjective Progress Note for:: 04/10/18 Subjective:: Patient is currently doing well he is denied any chest pain pt Is all cardiac enzyme is negative Reason For Visit: CHEST PAIN Physical Exam Vital Signs: Temp Pulse Resp BP Pulse Ox 98.2 F 58 L 12 149/57 H 92 04/10/18 07:23 04/10/18 07:23 04/10/18 07:23 04/10/18 07:23 04/10/18 07:23 Intake & Output 04/09/18 04/10/18 04/11/18 06:59 06:59 06:59 Intake Total 0 360 Output Total 0 Balance 0 360 Weight 83.8 kg General appearance: PRESENT: no acute distress, well-developed, well-nourished Head exam: PRESENT: atraumatic, normocephalic Eye exam: PRESENT: conjunctiva pink, EOMI, PERRLA. ABSENT: scleral icterus Ear exam: PRESENT: normal external ear exam Mouth exam: PRESENT: moist, tongue midline Neck exam: PRESENT: full ROM. ABSENT: carotid bruit, JVD, lymphadenopathy, thyromegaly Respiratory exam: PRESENT: clear to auscultation sarah Cardiovascular exam: PRESENT: RRR. ABSENT: diastolic murmur, rubs, systolic murmur Pulses: PRESENT: normal dorsalis pedis pul, +2 pedal pulses bilateral Vascular exam: PRESENT: normal capillary refill GI/Abdominal exam: PRESENT: normal bowel sounds, soft. ABSENT: distended, guarding, mass, organolmegaly, rebound, tenderness Rectal exam: PRESENT: deferred Musculoskeletal exam: PRESENT: ambulatory Neurological exam: PRESENT: alert, awake, oriented to person, oriented to place , oriented to time, oriented to situation, CN II-XII grossly intact. ABSENT: motor sensory deficit Psychiatric exam: PRESENT: appropriate affect, normal mood. ABSENT: homicidal ideation, suicidal ideation Skin exam: PRESENT: dry, intact, warm. ABSENT: cyanosis, rash Results Laboratory Results: 04/10/18 06:00 04/10/18 06:00 04/10/18 04/10/18 06:00 06:00 WBC 7.0 RBC 3.90 L Hgb 11.0 L Hct 33.5 L MCV 86 MCH 28.1 MCHC 32.8 RDW 20.1 H Plt Count 166 Seg Neutrophils % 81.8 H Lymphocytes % 6.1 L Monocytes % 10.8 Eosinophils % 0.5 Basophils % 0.8 Absolute Neutrophils 5.7 Absolute Lymphocytes 0.4 L Absolute Monocytes 0.8 Absolute Eosinophils 0.0 Absolute Basophils 0.1 Sodium 142.6 Potassium 4.7 Chloride 99 Carbon Dioxide 28 Anion Gap 16 BUN 33 H Creatinine 5.74 H Est GFR ( Amer) 12 L Est GFR (Non-Af Amer) 10 L Glucose 99 Calcium 9.6 Magnesium 2.5 H 04/09/18 04/09/18 04/09/18 18:30 18:30 22:38 Creatine Kinase 91 86 CK-MB (CK-2) 1.98 Troponin I 0.036 04/09/18 04/10/18 04/10/18 23:38 06:00 06:00 Creatine Kinase 76 CK-MB (CK-2) 1.54 1.13 Troponin I 0.039 0.039 Impressions: Chest X-Ray 04/09/18 14:15 IMPRESSION: Findings consistent with a compensated cardiac status or mild degree of congestive failure. Assessment & Plan - Diagnosis (1) Chest pain Qualifiers: Chest pain type: unspecified Qualified Code(s): R07.9 - Chest pain, unspecified Is this a current diagnosis for this admission?: Yes Plan: admit in [facility] do serial cardic enzyme last stress test was 2 y back consult cardilogy (2) ESRD (end stage renal disease) on dialysis Is this a current diagnosis for this admission?: Yes Plan: consult nephrology (3) Coronary arteriosclerosis after coronary artery bypass grafting Is this a current diagnosis for this admission?: Yes (4) Hyperlipidemia Qualifiers: Is this a current diagnosis for this admission?: Yes (5) Hypertension Qualifiers: Hypertension type: essential hypertension Qualified Code(s): I10 - Essential (primary) hypertension Is this a current diagnosis for this admission?: Yes Plan: cont curr med (6) Type 2 diabetes mellitus Qualifiers: Diabetes mellitus terminal gauger insulin use: unspecified halfway insulin use status Chronic kidney disease stage: on chronic dialysis Is this a current diagnosis for this admission?: Yes Plan: [facility] ss and cont curr med - Time Time Spent with patient: 15-24 minutes Medications reviewed and adjusted accordingly: Yes Anticipated discharge: Home Within: within 24 hours - Inpatient Certification Based on my medical assessment, after consideration of the patient's comorbidities, presenting symptoms, or acuity I expect that the services needed warrant INPATIENT care.: Yes I certify that my determination is in accordance with my understanding of Medicare's requirements for reasonable and necessary INPATIENT services [42 CFR 412.3e].: Yes Medical Necessity: Need Close Monitoring Due to Risk of Patient Decompensation Post Hospital Care: D/C Scientific Editor Documentation
[2018-04-10] MEDS ORDERED: CALCIUM ACETATE 667 MG CAPSULE PO SCH (10:00)
[2018-04-10] MEDS ORDERED: FOLIC ACID/VITAMIN B COMP W-C CAPSULE PO SCH (10:00)
[2018-04-10] MEDS ORDERED: CLONIDINE HCL 0.1 MG TABLET PO SCH ×2 (10:00→12:00)
[2018-04-10] MEDS ORDERED: SITAGLIPTIN PHOSPHATE 25 MG TABLET PO SCH (10:00)
[2018-04-10] MEDS ORDERED: ASPIRIN 81 MG TABLET, ENT COATED PO SCH (10:00)
[2018-04-10] MEDS: DOCUSATE SODIUM 100 MG CAPSULE PO SCH ×2 (10:44→17:22)
[2018-04-10] MEDS: FAMOTIDINE 20 MG TABLET PO SCH (10:45)
--- NOTE | 2018-04-10 14:17 | Physician Advisory Note ---
Physician Advisor ProgressNote .: Pursuant to the plan for [facility], I have reviewed the medical record for this patient. Physician Advisor Statement: ECHO in 2011 = nl EF, severe pulmonary hypertension. Please consider documenting, if you agree: 1. "Acute CHF w/preserved EF, evidenced by " (or is this ruled out ? - H&P states no orthopnea/edema/PATRICK, no JVD, no rales. CXR has cardiomegaly but no pleural efusions or acute pulmonary edema documented ...) 2. "severe pulmonary hypertension" 3. Medical necessity: Payer will want to know, if pt is currently doing well, with no further CP, neg cardiac enzymes, & on po Lasix - what are the reasons pt still needs to be tx'd/monitored in hospital level of care today instead of being d/c'd today? If this is not explicitly stated, denial of Inpatient status can be expected. STatus: Acute CP & CHF are both Obs status-appropriate until proven otherwise, since they often resolve quickly with appropriate tx. If attending feels pt needs Inpt status in this case, please document clinical issues/ongoing acute concerns that require continued hospital care. (See above. ) Thanks for your help with making documentation clear & status appropriate. CK
--- NOTE | 2018-04-10 14:51 | PDOC CONSULTATION ---
Consultation Consult Date: 04/10/18 Consult reason:: Hemodialysis. History of Present Illness Admission Date/PCP: 04/09/18 17:07 CHRISTY MCMAHON PA-C History of Present Illness: MIRI BENJAMIN is a 67 year old male with a history of diabetes mellitus, hypertension, ESRD on hemodialysis was admitted with a history of chest pain and shortness of breath yesterday. Patient states he has been having pressure symptoms in his retrosternal area with no radiation that has been constant since late Monday. He underwent dialysis without any issues but since it persisted he decided to go to the ER.He was seen and evaluated in the ER and given nitroglycerin but it took about couple of hours before the pain went away. No history of any coughing spells fever chills. No history of any worsening with movements. He has not had a cardiac risk stratification for the last couple of years. He used to follow with Dr. Romero/cardiology. Labs and medications were reviewed with the patient. Past Medical History Cardiac Medical History: Reports: Coronary Artery Disease, Hyperlipidemia, Hypertension-primary, Myocardial Infarction - 2010 Denies: Atrial Fibrillation, Heart Murmur, Peripheral Vascular Disease Pulmonary Medical History: Denies: Asthma, Bronchitis, Chronic Obstructive Pulmonary Disease (COPD), Pneumonia, Tuberculosis Neurological Medical History: Denies: Seizures Endocrine Medical History: Reports: Diabetes Mellitus Type 2 Denies: Hyperthyroidism, Hypothyroidism Renal/ Medical History: Reports: End Stage Renal Disease - dialysis, Secondary Hyperparathyroidism GI Medical History: Denies: Hepatitis, Hiatal Hernia Musculoskeltal Medical History: Reports: Arthritis - neck Denies: Fibromyalgia, Rheumatoid Arthritis, Systemic Lupus Erythematosus Psychiatric Medical History: Reports: Depression Hematology Medical History: Reports Anemia of Chronic Kidney Disease Past Surgical History Past Surgical History: Reports: Cardiac Catheterization, Coronary Artery Bypass Graft, Vascular Surgery - fistula left forearm Denies: Appendectomy, Cholecystectomy, Gastric Bypass Surgery, Herniorrhaphy , Pacemaker, Tonsillectomy Social History Smoking Status: Former Smoker Last Time Smoked: 40 years ago Frequency of Alcohol Use: None Hx Recreational Drug Use: No Drugs: None Hx Prescription Drug Abuse: No Family History Parental Family History Reviewed: Yes - Negative for ESRD. Children Family History Reviewed: No Sibling(s) Family History Reviewed.: No Medication/Allergy Home Medications: Amlodipine Besylate [Norvasc 10 mg Tablet] 10 mg PO QHS 04/09/18 Aspirin [Aspirin EC] 81 mg PO DAILY 04/09/18 B Complex W-C No.20/Folic Acid [Renal Caps Softgel] 1 mg PO DAILY 04/09/18 Calcium Acetate [Phoslo 667 Mg Capsule] 1,334 mg PO ASDIR PRN 04/09/18 Calcium Acetate [Phoslo 667 Mg Capsule] 2,668 mg PO MEALS 04/09/18 Clonidine HCl [Catapres 0.1 mg Tablet] 0.1 mg PO NOON 04/09/18 Clonidine HCl [Catapres 0.1 mg Tablet] 0.1 mg PO QAM 04/09/18 Clonidine HCl [Catapres 0.1 mg Tablet] 0.2 mg PO QHS 04/09/18 Cyanocobalamin (Vitamin B-12) [Vitamin B12] 2,000 mg PO DAILY 04/09/18 Diphenhydramine HCl/Zinc Acet [Anti-Itch Cream] 1 applic TOP Q6 PRN 04/09/18 Doxazosin Mesylate [Cardura 4 mg Tablet] 4 mg PO QHS 04/09/18 Furosemide [Lasix 40 mg Tablet] 40 mg PO NOON 04/09/18 Furosemide [Lasix 40 mg Tablet] 80 mg PO QAM 04/09/18 Gabapentin [Neurontin 300 mg Capsule] 900 mg PO Q8 04/09/18 Hydralazine HCl 100 mg PO Q8 04/09/18 Insulin Glargine,Hum.rec.anlog [Lantus Solostar] 20 unit SQ QHS 04/09/18 Insulin Lispro [Humalog Insulin 100 Unit/1 ml 3 ml Vial] 0 unit SUBCUT .SLD SCALE 04/09/18 Nitroglycerin [Nitro-Dur 10 mg (0.4MG/Hr) Transdermal Patch] 1 each TD QHS 04/09 [place]-3S/Dha/Epa/Fish Oil [Fish Oil [place]-3 Softgel] 1,200 mg PO DAILY 04/09/18 Pravastatin Sodium [Pravachol] 20 mg PO QHS 04/09/18 Sitagliptin Phosphate [Januvia 25 mg Tablet] 25 mg PO DAILY 04/09/18 Sodium Polystyrene Sulfonate [Kayexalate 15 Gm/60 Ml Susp 60 Ml] 30 gm PO FERREIRA@ 1000 04/09/18 Allergies/Adverse Reactions: No Known Allergies Allergy (Verified 04/09/18 13:37) Review of Systems Constitutional: PRESENT: fatigue, weakness. ABSENT: chills, fever(s), headache( s), night sweats Nose, Mouth, and Throat: ABSENT: mouth pain, sore throat Cardiovascular: PRESENT: chest pain, dyspnea on exertion. ABSENT: edema, orthropnea, palpitations Respiratory: ABSENT: hemoptysis Gastrointestinal: ABSENT: abdominal pain, coffee ground emesis, diarrhea, dysphagia, heartburn, hematemesis, hematochezia, melena, nausea, vomiting Genitourinary: ABSENT: dysuria Integumentary: ABSENT: lesions, pruritus, rash Neurological: ABSENT: abnormal speech, confusion, focal weakness, frequent falls Hematologic/Lymphatic: ABSENT: easy bruising, lymphadenopathy Physical Exam Vital Signs: Temp Pulse Resp BP Pulse Ox 97.7 F 55 L 15 186/61 H 95 04/10/18 11:23 04/10/18 12:51 04/10/18 12:51 04/10/18 11:23 04/10/18 12:51 Intake & Output 04/09/18 04/10/18 04/11/18 06:59 06:59 06:59 Intake Total 0 647 Output Total 0 0 Balance 0 647 Weight 83.8 kg General appearance: PRESENT: no acute distress Eye exam: PRESENT: conjunctiva pink, EOMI, PERRLA Ear exam: PRESENT: normal external ear exam Mouth exam: PRESENT: moist, neck supple Neck exam: ABSENT: lymphadenopathy, meningismus, tenderness, thyromegaly, tracheal deviation Respiratory exam: PRESENT: clear to auscultation sarah. ABSENT: crackles Cardiovascular exam: PRESENT: +S1, +S2, systolic murmur GI/Abdominal exam: PRESENT: normal bowel sounds, soft. ABSENT: organomegaly, tenderness Extremities exam: PRESENT: pedal edema Neurological exam: PRESENT: alert, awake, oriented to person, oriented to place , oriented to time Psychiatric exam: PRESENT: anxious Skin exam: ABSENT: dry, erythema, rash Results Laboratory Results: 04/10/18 06:00 04/10/18 06:00 04/10/18 04/10/18 06:00 06:00 WBC 7.0 RBC 3.90 L Hgb 11.0 L Hct 33.5 L MCV 86 MCH 28.1 MCHC 32.8 RDW 20.1 H Plt Count 166 Seg Neutrophils % 81.8 H Lymphocytes % 6.1 L Monocytes % 10.8 Eosinophils % 0.5 Basophils % 0.8 Absolute Neutrophils 5.7 Absolute Lymphocytes 0.4 L Absolute Monocytes 0.8 Absolute Eosinophils 0.0 Absolute Basophils 0.1 Sodium 142.6 Potassium 4.7 Chloride 99 Carbon Dioxide 28 Anion Gap 16 BUN 33 H Creatinine 5.74 H Est GFR ( Amer) 12 L Est GFR (Non-Af Amer) 10 L Glucose 99 Calcium 9.6 Magnesium 2.5 H 04/09/18 04/09/18 04/09/18 18:30 18:30 22:38 Creatine Kinase 91 86 CK-MB (CK-2) 1.98 Troponin I 0.036 04/09/18 04/10/18 04/10/18 23:38 06:00 06:00 Creatine Kinase 76 CK-MB (CK-2) 1.54 1.13 Troponin I 0.039 0.039 Impressions: Chest X-Ray 04/09/18 14:15 IMPRESSION: Findings consistent with a compensated cardiac status or mild degree of congestive failure. Assessment & Plan - Diagnosis (1) Chest pain Qualifiers: Chest pain type: unspecified Qualified Code(s): R07.9 - Chest pain, unspecified Is this a current diagnosis for this admission?: Yes Plan: Patient has been admitted to be ruled out for acute coronary syndrome. Troponins are negative. However he is got shortness of breath which needs further evaluation. Possibly has pulmonary hypertension given the fact that he has got sleep apnea but very noncompliant with his CPAP. Cardiology has been consulted. Currently chest pain-free. (2) ESRD (end stage renal disease) on dialysis Is this a current diagnosis for this admission?: Yes Plan: Patient was dialyzed yesterday. He does not show any acute evidence as to be needing dialysis today. Plan for dialysis in the morning for which orders have been placed. (3) Type 2 diabetes mellitus Qualifiers: Diabetes mellitus nursing home insulin use: unspecified nursing home insulin use status Chronic kidney disease stage: on chronic dialysis Is this a current diagnosis for this admission?: Yes Plan: Complicated and poorly controlled. Patient has had a history of very poor and on compliance with his diet and medications for years. Advised the need for tight control. (4) Hypertension Qualifiers: Hypertension type: essential hypertension Qualified Code(s): I10 - Essential (primary) hypertension Is this a current diagnosis for this admission?: Yes Plan: Uncontrolled. Titrate medications and see response to dialysis.
[2018-04-10] MEDS ORDERED: CLONIDINE HCL 0.1 MG TABLET PO ONE (15:00)
--- NOTE | 2018-04-10 15:25 | PDOC PROGRESS REPORT ---
Subjective Progress Note for:: 04/10/18 Subjective:: pt is doing well no chest pain pt all ce is neg Reason For Visit: CHEST PAIN Physical Exam Vital Signs: Temp Pulse Resp BP Pulse Ox 97.7 F 55 L 15 186/61 H 95 04/10/18 11:23 04/10/18 12:51 04/10/18 12:51 04/10/18 11:23 04/10/18 12:51 Intake & Output 04/09/18 04/10/18 04/11/18 06:59 06:59 06:59 Intake Total 0 647 Output Total 0 0 Balance 0 647 Weight 83.8 kg General appearance: PRESENT: no acute distress, well-developed, well-nourished Head exam: PRESENT: atraumatic, normocephalic Eye exam: PRESENT: conjunctiva pink, EOMI, PERRLA. ABSENT: scleral icterus Ear exam: PRESENT: normal external ear exam Mouth exam: PRESENT: moist, tongue midline Neck exam: PRESENT: full ROM. ABSENT: carotid bruit, JVD, lymphadenopathy, thyromegaly Respiratory exam: PRESENT: clear to auscultation sarah Cardiovascular exam: PRESENT: RRR. ABSENT: diastolic murmur, rubs, systolic murmur Pulses: PRESENT: normal dorsalis pedis pul, +2 pedal pulses bilateral Vascular exam: PRESENT: normal capillary refill GI/Abdominal exam: PRESENT: normal bowel sounds, soft. ABSENT: distended, guarding, mass, organolmegaly, rebound, tenderness Rectal exam: PRESENT: deferred Extremities exam: ABSENT: pedal edema Neurological exam: PRESENT: alert, awake, oriented to person, oriented to place , oriented to time, oriented to situation, CN II-XII grossly intact. ABSENT: motor sensory deficit Psychiatric exam: PRESENT: appropriate affect, normal mood. ABSENT: homicidal ideation, suicidal ideation Skin exam: PRESENT: dry, intact, warm. ABSENT: cyanosis, rash Results Laboratory Results: 04/10/18 06:00 04/10/18 06:00 04/10/18 04/10/18 06:00 06:00 WBC 7.0 RBC 3.90 L Hgb 11.0 L Hct 33.5 L MCV 86 MCH 28.1 MCHC 32.8 RDW 20.1 H Plt Count 166 Seg Neutrophils % 81.8 H Lymphocytes % 6.1 L Monocytes % 10.8 Eosinophils % 0.5 Basophils % 0.8 Absolute Neutrophils 5.7 Absolute Lymphocytes 0.4 L Absolute Monocytes 0.8 Absolute Eosinophils 0.0 Absolute Basophils 0.1 Sodium 142.6 Potassium 4.7 Chloride 99 Carbon Dioxide 28 Anion Gap 16 BUN 33 H Creatinine 5.74 H Est GFR ( Amer) 12 L Est GFR (Non-Af Amer) 10 L Glucose 99 Calcium 9.6 Magnesium 2.5 H 04/09/18 04/09/18 04/09/18 18:30 18:30 22:38 Creatine Kinase 91 86 CK-MB (CK-2) 1.98 Troponin I 0.036 04/09/18 04/10/18 04/10/18 23:38 06:00 06:00 Creatine Kinase 76 CK-MB (CK-2) 1.54 1.13 Troponin I 0.039 0.039 Impressions: Chest X-Ray 04/09/18 14:15 IMPRESSION: Findings consistent with a compensated cardiac status or mild degree of congestive failure. Assessment & Plan - Diagnosis (1) Chest pain Qualifiers: Chest pain type: unspecified Qualified Code(s): R07.9 - Chest pain, unspecified Is this a current diagnosis for this admission?: Yes Plan: will f/u cardilogy (2) ESRD (end stage renal disease) on dialysis Is this a current diagnosis for this admission?: Yes Plan: consult nephrology (3) Coronary arteriosclerosis after coronary artery bypass grafting Is this a current diagnosis for this admission?: Yes (4) Hyperlipidemia Qualifiers: Is this a current diagnosis for this admission?: Yes (5) Hypertension Qualifiers: Hypertension type: essential hypertension Qualified Code(s): I10 - Essential (primary) hypertension Is this a current diagnosis for this admission?: Yes Plan: cont curr med (6) Type 2 diabetes mellitus Qualifiers: Diabetes mellitus group home insulin use: unspecified group home insulin use status Chronic kidney disease stage: on chronic dialysis Is this a current diagnosis for this admission?: Yes Plan: [facility] ss and cont curr med (7) Sleep apnea Qualifiers: Sleep apnea type: obstructive Qualified Code(s): G47.33 - Obstructive sleep apnea (adult) (pediatric) Is this a current diagnosis for this admission?: Yes Plan: use c pap - Time Time Spent with patient: 15-24 minutes Medications reviewed and adjusted accordingly: Yes Anticipated discharge: Home, Home with Homehealth Within: Other - Inpatient Certification Based on my medical assessment, after consideration of the patient's comorbidities, presenting symptoms, or acuity I expect that the services needed warrant INPATIENT care.: Yes I certify that my determination is in accordance with my understanding of Medicare's requirements for reasonable and necessary INPATIENT services [42 CFR 412.3e].: Yes Medical Necessity: Need Close Monitoring Due to Risk of Patient Decompensation Post Hospital Care: D/C Clinical Informatics Physician Documentation - Plan Summary Plan Summary: cont curr med
[2018-04-10] MEDS: HYDRALAZINE HCL INJ/PF 20 MG/1 ML SDV IV PRN (15:42)
[2018-04-10 17:32] VITALS: BP 194/67
--- NOTE | 2018-04-10 21:14 | PDOC CONSULTATION ---
Consultation-Blank Consultation: CARDIOLOGY CONSULTATION by Dr. Jo Pacheco on 04/10/2018. Patient seen at 1 PM. 60 minutes spent on this patient more than 50% time spent in direct patient care. REASON FOR CONSULTATION: Patient with history of coronary artery disease, history of coronary artery bypass graft surgery admitted with the atypical chest pressure. Hence cardiology assessment 04/09/18 04/09/18 04/10/18 18:30 23:38 04:30 . WBC Hgb Hct Plt Count Sodium Potassium Chloride Carbon Dioxide Anion Gap BUN Creatinine Est GFR (Non-Af Amer) Glucose POC Glucose 53 L Calcium Magnesium Creatine Kinase CK-MB (CK-2) 1.98 1.54 Troponin I 0.036 0.039 04/10/18 04/10/18 04/10/18 05:20 06:00 06:00 WBC Hgb Hct Plt Count Sodium 142.6 Potassium 4.7 Chloride 99 Carbon Dioxide 28 Anion Gap 16 BUN 33 H Creatinine 5.74 H Est GFR (Non-Af Amer) 10 L Glucose 99 POC Glucose 84 Calcium 9.6 Magnesium 2.5 H Creatine Kinase 76 CK-MB (CK-2) 1.13 Troponin I 0.039 04/10/18 04/10/18 06:00 11:21 WBC 7.0 Hgb 11.0 L Hct 33.5 L Plt Count 166 Sodium Potassium Chloride Carbon Dioxide Anion Gap BUN Creatinine Est GFR (Non-Af Amer) Glucose POC Glucose 118 H Calcium Magnesium Creatine Kinase CK-MB (CK-2) Troponin I
[2018-04-11] MEDS ORDERED: CLONIDINE HCL 0.1 MG TABLET PO SCH (08:00)
--- NOTE | 2018-04-12 16:33 | PDOC DISCHARGE SUMMARY ---
General - Admit/Disc Date/PCP Admission Date/Primary Care Provider: 04/09/18 17:07 CHRISTY MCMAHON PA-C Discharge Date: 04/10/18 - Discharge Diagnosis (1) Chest pain Is this a current diagnosis for this admission?: Yes Summary: Currently all resolved follow outpatients cardiology as per discussed with the cardiology Dr. Pacheco (2) ESRD (end stage renal disease) on dialysis Is this a current diagnosis for this admission?: Yes Summary: Currently on hemodialysis (3) Coronary arteriosclerosis after coronary artery bypass grafting Is this a current diagnosis for this admission?: Yes Summary: Follow with the Dr. Pacheco (4) Hyperlipidemia Is this a current diagnosis for this admission?: Yes Summary: Currently all stable (5) Hypertension Is this a current diagnosis for this admission?: Yes Summary: Continues current medication (6) Type 2 diabetes mellitus Is this a current diagnosis for this admission?: Yes Summary: Currently all stable (7) Sleep apnea Is this a current diagnosis for this admission?: Yes Summary: Currently using the CPAP - Additional Information Discharge Diet: Diabetic Discharge Activity: Activity As Tolerated Home Medications: Amlodipine Besylate [Norvasc 10 mg Tablet] 10 mg PO QHS 04/09/18 Aspirin [Aspirin EC] 81 mg PO DAILY 04/09/18 B Complex W-C No.20/Folic Acid [Renal Caps Softgel] 1 mg PO DAILY 04/09/18 Calcium Acetate [Phoslo 667 mg Capsule] 1,334 mg PO ASDIR PRN 04/09/18 Calcium Acetate [Phoslo 667 mg Capsule] 2,668 mg PO MEALS 04/09/18 Clonidine HCl [Catapres 0.1 mg Tablet] 0.1 mg PO NOON 04/09/18 Clonidine HCl [Catapres 0.1 mg Tablet] 0.1 mg PO QAM 04/09/18 Clonidine HCl [Catapres 0.1 mg Tablet] 0.2 mg PO QHS 04/09/18 Cyanocobalamin (Vitamin B-12) [Vitamin B12] 2,000 mg PO DAILY 04/09/18 Diphenhydramine HCl/Zinc Acet [Anti-Itch Cream] 1 applic TOP Q6 PRN 04/09/18 Doxazosin Mesylate [Cardura 4 mg Tablet] 4 mg PO QHS 04/09/18 Furosemide [Lasix 40 mg Tablet] 40 mg PO NOON 04/09/18 Furosemide [Lasix 40 mg Tablet] 80 mg PO QAM 04/09/18 Gabapentin [Neurontin 300 mg Capsule] 900 mg PO Q8 04/09/18 Hydralazine HCl 100 mg PO Q8 04/09/18 Insulin Glargine,Hum.rec.anlog [Lantus Solostar] 20 unit SQ QHS 04/09/18 Insulin Lispro [Humalog Insulin (Lispro) 100 unit/mL] 0 unit SUBCUT .SLD SCALE 04/09/18 Nitroglycerin [Nitro-Dur 10 mg (0.4MG/Hr) Transdermal Patch] 1 each TD QHS 04/09 [place]-3S/Dha/Epa/Fish Oil [Fish Oil [place]-3 Softgel] 1,200 mg PO DAILY 04/09/18 Pravastatin Sodium [Pravachol] 20 mg PO QHS 04/09/18 Sitagliptin Phosphate [Januvia 25 mg Tablet] 25 mg PO DAILY 04/09/18 Sodium Polystyrene Sulfonate [Kayexalate 15 gm/60 ml Susp 60 ml] 30 gm PO FERREIRA@ 1000 04/09/18 History of Present Illness History of Present Illness: MIRI BENJAMIN is a 67 year old male pt came with c/o chest pain since last 1wk on and off pt recived 2 misty and no chest pain pt also mild ekg change pt also admiteed in [facility] in september 2017 for chest pain and did not have any stress test pt bp always run 170 range Hospital Course Hospital Course: This is a 67-year-old male admitting for the hospital with chest pains to rule out acute coronary syndromes patients all workup is negative patient seen by the cardiology and suggest follow outpatient Patient's denied any chest pains patient's p.o. intake is good patient's more the hallway without any problems Physical Exam Vital Signs: Temp Pulse Resp BP Pulse Ox 97.3 F 59 L 16 194/67 H 98 04/10/18 17:27 04/10/18 17:27 04/10/18 17:27 04/10/18 17:27 04/10/18 17:27 Intake & Output 04/11/18 04/12/18 04/13/18 06:59 06:59 06:59 Intake Total 747 Output Total 237 Balance 510 General appearance: PRESENT: no acute distress, well-developed, well-nourished Head exam: PRESENT: atraumatic, normocephalic Eye exam: PRESENT: conjunctiva pink, EOMI, PERRLA. ABSENT: scleral icterus Ear exam: PRESENT: normal external ear exam Mouth exam: PRESENT: moist, tongue midline Neck exam: PRESENT: full ROM. ABSENT: carotid bruit, JVD, lymphadenopathy, thyromegaly Respiratory exam: PRESENT: clear to auscultation sarah Cardiovascular exam: PRESENT: RRR. ABSENT: diastolic murmur, rubs, systolic murmur Pulses: PRESENT: normal dorsalis pedis pul, +2 pedal pulses bilateral Vascular exam: PRESENT: normal capillary refill GI/Abdominal exam: PRESENT: normal bowel sounds, soft. ABSENT: distended, guarding, mass, organolmegaly, rebound, tenderness Rectal exam: PRESENT: deferred Extremities exam: ABSENT: pedal edema Musculoskeletal exam: PRESENT: ambulatory Neurological exam: PRESENT: alert, awake, oriented to person, oriented to place , oriented to time, oriented to situation, CN II-XII grossly intact. ABSENT: motor sensory deficit Psychiatric exam: PRESENT: appropriate affect, normal mood. ABSENT: homicidal ideation, suicidal ideation Skin exam: PRESENT: dry, intact, warm. ABSENT: cyanosis, rash Results Laboratory Results: 04/10/18 06:00 04/10/18 06:00 04/09/18 04/09/18 04/09/18 18:30 18:30 22:38 Creatine Kinase 91 86 CK-MB (CK-2) 1.98 Troponin I 0.036 04/09/18 04/10/18 04/10/18 23:38 06:00 06:00 Creatine Kinase 76 CK-MB (CK-2) 1.54 1.13 Troponin I 0.039 0.039 Impressions: Chest X-Ray 04/09/18 14:15 IMPRESSION: Findings consistent with a compensated cardiac status or mild degree of congestive failure. Qualifiers - * PATIENT BEING DISCHARGED WITH ANY OF THE FOLLOWING DIAGNOSIS: No VTE patient discharged on overlapping Therapy?: Yes Plan Time Spent: Greater than 30 Minutes - Discharge home with a stable conditions follow outpatients cardiology
== END 2018-04-10 18:44 | disposition home or self-care (01) | DRG 313 ==
LOC: ER 13:36 → OBSVTOIN 17:07 → EH 17:07 → 3S 20:05
PROVIDERS: ADMIT Family Medicine; ATTEND Family Medicine
DX: R07.89 Other chest pain (principal); N18.6 End stage renal disease; I12.0 Hypertensive chronic kidney disease with stage 5 chronic kidney disease or end stage renal disease; R06.02 Shortness of breath; F17.200 Nicotine dependence, unspecified, uncomplicated; I25.10 Atherosclerotic heart disease of native coronary artery without angina pectoris; D63.1 Anemia in chronic kidney disease; M13.88 Other specified arthritis, other site; F32.9 Major depressive disorder, single episode, unspecified; G47.33 Obstructive sleep apnea (adult) (pediatric); E11.22 Type 2 diabetes mellitus with diabetic chronic kidney disease; E78.5 Hyperlipidemia, unspecified; G47.30 Sleep apnea, unspecified; Z95.1 Presence of aortocoronary bypass graft; Z99.2 Dependence on renal dialysis; Z79.4 Long term (current) use of insulin; I25.2 Old myocardial infarction; Z87.891 Personal history of nicotine dependence; Z82.49 Family history of ischemic heart disease and other diseases of the circulatory system; Z83.3 Family history of diabetes mellitus
CPT/HCPCS: 36415; 71045; 80048; 80053; 82550; 82553; 82962; 83735; 84484; 85025; 93005; 93010; 99285; J0360; J1815; J3490

== ENCOUNTER 2018-04-18 03:07 | Emergency (ER) | payer MEDICARE, OTHER ==
[2018-04-18] MEDS ORDERED: SILVER NITRATE APPLICATOR 1 APPLIC STICK..EA. 10/PACKAGE TOP ONE (04:06)
--- NOTE | 2018-04-18 04:49 | ER Document Report ---
HPI - HPI Patient complains to provider of: Abrasion right face. Pain Level: 0 Context: Patient is a 67-year-old male presenting to the emergency department complaining of a abrasion to the right side of his face. Patient states he recently had skin cancer removed to an area on the right side of his face and this evening he accidentally scratch that area. States he has had bleeding slow oozing since 2230 hours. Patient states he has been trying to apply pressure but has not been able to stop the bleeding which is why he presents to the emergency room. Patient states he is on aspirin but denies being on any other blood thinners. Past medical history: Chronic kidney disease, on dialysis, hypertension, diabetes Medications: Aspirin, Januvia, gabapentin, Lasix, metoprolol Allergies: None - REPRODUCTIVE Reproductive: DENIES: : - DERM Skin Color: Normal, [place] <VALDO BRISENO - Last Filed: 04/18/18 05:12> Past Medical History - General Information source: Patient - Social History Smoking Status: Former Smoker Chew tobacco use (# tins/day): No Frequency of alcohol use: None Drug Abuse: None Lives with: Family Family History: Reviewed & Not Pertinent, DM, Hypertension Patient has suicidal ideation: No Patient has homicidal ideation: No - Past Medical History Cardiac Medical History: Reports: Hx Coronary Artery Disease, Hx Heart Attack - 2009, Hx Hypercholesterolemia, Hx Hypertension Denies: Hx Atrial Fibrillation, Hx Peripheral Vascular Disease, Hx Heart Murmur Pulmonary Medical History: Denies: Hx Asthma, Hx Bronchitis, Hx COPD, Hx Pneumonia, Hx Tuberculosis Neurological Medical History: Denies: Hx Cerebrovascular Accident, Hx Seizures Endocrine Medical History: Reports: Hx Diabetes Mellitus Type 1, Hx Diabetes Mellitus Type 2. Denies: Hx Graves' Disease, Hx Hyperthyroidism, Hx Hypothyroidism Renal/ Medical History: Reports: Hx End Stage Renal Disease - dialysis. Denies: Hx Peritoneal Dialysis GI Medical History: Denies: Hx Hepatitis, Hx Hiatal Hernia, Hx Ulcer Musculoskeletal Medical History: Reports Hx Arthritis - neck , Denies Hx Fibromyalgia, Denies Hx Muscular Dystrophy Psychiatric Medical History: Reports: Hx Depression Traumatic Medical History: Denies: Hx Fractures Infectious Medical History: Denies: Hx Hepatitis Past Surgical History: Reports: Hx Cardiac Catheterization, Hx Cardiac Surgery - CABGx3, 2009, Hx Coronary Artery Bypass Graft, Hx Vascular Surgery - fistula left forearm. Denies: Hx Appendectomy, Hx Bowel Surgery, Hx Cholecystectomy, Hx Gastric Bypass Surgery, Hx Herniorrhaphy, Hx Pacemaker, Hx Tonsillectomy. Comment Only: Hx Open Heart Surgery - 2010 - Immunizations Immunizations up to date: No Hx Diphtheria, Pertussis, Tetanus Vaccination: Yes Hx Pneumococcal Vaccination: 06/12/11 <VALDO BRISENO - Last Filed: 04/18/18 05:12> Vertical Provider Document - CONSTITUTIONAL Agree With Documented VS: Yes Notes: GENERAL: Alert, interacts well. No acute distress. HEAD: Normocephalic, quarter size abrasion noted lateral to the right ear. Slow oozing bleeding noted 6:00. EYES: Pupils equal, round, and reactive to light. Extraocular movements intact. ENT: Oral mucosa moist, tongue midline. NECK: Full range of motion. Supple. Trachea midline. LUNGS: Clear to auscultation bilaterally, no wheezes, rales, or rhonchi. No respiratory distress. HEART: Regular rate and rhythm. No murmur ABDOMEN: Soft, non-tender. Non-distended. Bowel sounds present in all 4 quadrants. EXTREMITIES: Moves all 4 extremities spontaneously. No edema, normal radial and dorsalis pedis pulses bilaterally. No cyanosis. BACK: no cervical, thoracic, lumbar midline tenderness. No saddle anesthesia, normal distal neurovascular exam. NEUROLOGICAL: Alert and oriented x3. Normal speech. cranial nerves II through XII grossly intact PSYCH: Normal affect, normal mood. SKIN: Warm, dry, normal turgor. - INFECTION CONTROL TRAVEL OUTSIDE OF THE [place] IN LAST 30 DAYS: No <VALDO BRISENO - Last Filed: 04/18/18 05:12> Course - Re-evaluation Re-evalutation: 04/18/18 04:46 bleeding was able to be stopped with pressure around the area and then application of Dermabond. Patient tolerated procedure well. Patient states he has an appointment with his primary care provider on . Discussed need to keep that appointment with primary care provider so they can look at the patient's wound. Discussed returning to the emergency room for any signs of infection. Patient states he is up-to-date on his tetanus. - Vital Signs Vital signs: Temp Pulse Resp BP Pulse Ox 97.6 F 66 16 188/66 H 04/18/18 03:17 04/18/18 03:17 04/18/18 03:17 04/18/18 03:17 <VALDO BRISENO - Last Filed: 04/18/18 05:12> - Vital Signs Vital signs: Temp Pulse Resp BP Pulse Ox 97.4 F 68 20 182/66 H 96 04/18/18 05:02 04/18/18 05:02 04/18/18 05:02 04/18/18 05:02 04/18/18 05:02 <ALEC OMALLEY - Last Filed: 04/18/18 05:54> Procedures - Laceration/Wound Repair Right Mid- Face Wound length (cm): 1.6 Wound's Depth, Shape: Superficial Wound explored: Clean Wound Repaired With: Dermabond - Multiple layers multiple layers Layer Closure?: No Complications: No Notes: 04/18/18 05:53 Patient's ulcerated wound was exsanguinated and coated with multiple layers of Dermabond. This stopped the spontaneous bleeding from the wound. <ALEC OMALLEY - Last Filed: 04/18/18 05:54> Discharge <VALDO BRISENO - Last Filed: 04/18/18 05:12> <ALEC OMALLEY - Last Filed: 04/18/18 05:54> - Discharge Clinical Impression: Abrasion Condition: Stable Disposition: HOME, SELF-CARE Instructions: Laceration Care (OM) Additional Instructions: We have applied Dermabond to your wound. Dermabond is like a Band-Aid. It will begin to peel off on its own. Do not rip it off because you could take the scab with it and the bleeding may start again. Please make sure you keep your appointment with your primary care provider and return to the emergency room for any other concerning symptoms. Referrals: CHRISTY MCMAHON PA-C [Primary Care Provider] - Follow up as needed
[2018-04-18 05:03] VITALS: BP 182/66
== END 2018-04-18 05:06 | disposition home or self-care (01) ==
LOC: ER 03:07
DX: S00.81XA Abrasion of other part of head, initial encounter (principal); W50.4XXA Accidental scratch by another person, initial encounter; Z98.890 Other specified postprocedural states; Z85.828 Personal history of other malignant neoplasm of skin; I12.0 Hypertensive chronic kidney disease with stage 5 chronic kidney disease or end stage renal disease; E11.22 Type 2 diabetes mellitus with diabetic chronic kidney disease; N18.6 End stage renal disease; Z99.2 Dependence on renal dialysis; Z79.84 Long term (current) use of oral hypoglycemic drugs; Z79.82 Long term (current) use of aspirin; Z79.899 Other long term (current) drug therapy; Z87.891 Personal history of nicotine dependence; I25.10 Atherosclerotic heart disease of native coronary artery without angina pectoris
CPT/HCPCS: 99282

== ENCOUNTER 2018-09-25 19:59 | Emergency (ER) | payer MEDICARE, OTHER ==
[2018-09-25] MEDS ORDERED: TRANEXAMIC ACID INJ/PF 1,000 MG/10 ML SDV IV STA (23:01)
--- NOTE | 2018-09-25 23:24 | ER Document Report ---
ED General - General Chief Complaint: Post Surgical Bleeding Stated Complaint: SKIN PROBLEM Time Seen by Provider: 09/25/18 22:51 Primary Care Provider: NED VILLALOBOS MD [Primary Care Provider] - Follow up as needed Mode of Arrival: Ambulatory Information source: Patient Notes: Patient is a 67-year-old male who comes to emergency room tonight with postoperative bleeding. Patient had an excision/biopsy of a skin cancer on the right side of his face done today around 1:00. Patient also has a history of being in a dialysis patient and he gets heparin injections to keep the shunt clear heart regular basis. He stopped getting the heparin shot on Monday for today's biopsy. They applied a really heavy pressure dressing on the side of his face and was told that if the bleeding continued or did not stop he was to come to ER. Patient states about 5:00 it started bleeding heavily and is not failed to stop it since then. Patient has stated is also a dialysis patient. He denies any shortness of breath chest pain nausea or vomiting. Patient states he is just tired of holding pressure against the area. TRAVEL OUTSIDE OF THE [place] IN LAST 30 DAYS: No - HPI Onset: This afternoon Onset/Duration: Sudden, Constant Quality of pain: No pain Severity: Moderate Pain Level: 3 Associated symptoms: None Exacerbated by: Denies Relieved by: Denies Similar symptoms previously: No Recently seen / treated by doctor: Yes - Related Data Allergies/Adverse Reactions: No Known Allergies Allergy (Verified 09/25/18 20:15) Past Medical History - General Information source: Patient - Social History Smoking Status: Former Smoker Cigarette use (# per day): No Chew tobacco use (# tins/day): Yes Smoking Education Provided: No Frequency of alcohol use: None Drug Abuse: None Lives with: Family Family History: Reviewed & Not Pertinent, DM, Hypertension Patient has suicidal ideation: No Patient has homicidal ideation: No - Past Medical History Cardiac Medical History: Reports: Hx Coronary Artery Disease, Hx Heart Attack - 2009, Hx Hypercholesterolemia, Hx Hypertension Denies: Hx Atrial Fibrillation, Hx Peripheral Vascular Disease, Hx Heart Murmur Pulmonary Medical History: Denies: Hx Asthma, Hx Bronchitis, Hx COPD, Hx Pneumonia, Hx Tuberculosis Neurological Medical History: Denies: Hx Cerebrovascular Accident, Hx Seizures Endocrine Medical History: Reports: Hx Diabetes Mellitus Type 1, Hx Diabetes Mellitus Type 2. Denies: Hx Graves' Disease, Hx Hyperthyroidism, Hx Hypothyroidism Renal/ Medical History: Reports: Hx End Stage Renal Disease - dialysis. D enies: Hx Peritoneal Dialysis GI Medical History: Denies: Hx Hepatitis, Hx Hiatal Hernia, Hx Ulcer Musculoskeletal Medical History: Reports Hx Arthritis - neck , Denies Hx Fibromyalgia, Denies Hx Muscular Dystrophy Psychiatric Medical History: Reports: Hx Depression Traumatic Medical History: Denies: Hx Fractures Infectious Medical History: Denies: Hx Hepatitis Past Surgical History: Reports: Hx Cardiac Catheterization, Hx Cardiac Surgery - CABGx3, 2009, Hx Coronary Artery Bypass Graft, Hx Orthopedic Surgery - R knee, Hx Vascular Surgery - fistula left forearm. Denies: Hx Appendectomy, Hx Bowel Surgery, Hx Cholecystectomy, Hx Gastric Bypass Surgery, Hx Herniorrhaphy, Hx Pacemaker, Hx Tonsillectomy. Comment Only: Hx Open Heart Surgery - 2009 - Immunizations Immunizations up to date: No Hx Diphtheria, Pertussis, Tetanus Vaccination: Yes Hx Pneumococcal Vaccination: 06/12/11 Review of Systems - Review of Systems Constitutional: No symptoms reported EENT: No symptoms reported Cardiovascular: No symptoms reported Respiratory: No symptoms reported Gastrointestinal: No symptoms reported Genitourinary: No symptoms reported Male Genitourinary: No symptoms reported Musculoskeletal: No symptoms reported Skin: No symptoms reported, See HPI, Other Hematologic/Lymphatic: No symptoms reported Neurological/Psychological: No symptoms reported -: Yes All other systems reviewed and negative Physical Exam - Vital signs Vitals: Temp Pulse Resp BP Pulse Ox 97.7 F 56 L 18 189/63 H 98 09/25/18 20:41 09/25/18 20:41 09/25/18 20:41 09/25/18 20:41 09/25/18 20:41 Interpretation: Hypertensive, Bradycardic - Notes Notes: PHYSICAL EXAMINATION: GENERAL: Well-appearing, well-nourished and in no acute distress. HEAD; normocephalic. Examination of patient's area of concern is right side of his face extending from the zygomatic process downward approximately 4 cm. There is a linear surgical laceration that has been sutured together and margins appear normal. There is oozing coming from just one area approximately down by the third stitch that will not stop bleeding. There is puffiness below the right eye in the cheek area and extending slightly down into the wound area itself. EYES: Pupils equal round and reactive to light, extraocular movements intact, sclera anicteric, conjunctiva are normal. NECK: Normal range of motion, supple without lymphadenopathy LUNGS: Breath sounds clear to auscultation bilaterally and equal. No wheezes rales or rhonchi. HEART: Bradycardic rate and rhythm without murmurs NEUROLOGICAL: Normal speech, normal gait. Normal sensory, motor exams PSYCH: Normal mood, normal affect. SKIN: See head above for full description Course - Re-evaluation Re-evalutation: 09/26/18 00:09 I discussed the case with Dr. Rosenthal she gave me the indication and idea to use some tranexamic acid and rather use it IV since he has a history of having a dialysis shunt in and possibly causing a clot we applied it via externally by soaking a 4 x 4 roll and then applied a pressure dressing with that on top. We allowed it to sit for approximately an hour and then we removed it and bleeding so far as stopped. We have applied a nonstick dressing to the wound and then applied again a fortified pressure dressing with tape and gauze. Patient tolerated this very well and I have informed him that this is a keep your fingers crossed type approach because this is already sutured together and is just bruising from the seems. Unfortunately he is probably hypercoagulable state because of the heparin therefore will ooze for a while. Is also been instructed if he should continue on he can come back and we will attempt another options. - Vital Signs Vital signs: Temp Pulse Resp BP Pulse Ox 97.7 F 56 L 18 189/63 H 98 09/25/18 20:41 09/25/18 20:41 09/25/18 20:41 09/25/18 20:41 09/25/18 20:41 Discharge - Discharge Clinical Impression: Postoperative bleeding from incision Disposition: HOME, SELF-CARE Additional Instructions: As we discussed your complicated because you have been receiving heparin on a regular basis and you are probably prone to bleeding more easily. The wound is closed up well there is just some mild oozing that is accumulating around the opening of the wound. At this time we have been able to stop it with the medication and that the external and hopefully has allowed her to clot. Keep on using the pressure dressing for now. If it should return turn and the bleeding get worse come back to emergency room again for recheck. If bleeding has stopped he may remove the dressing tomorrow. Referrals: NED VILLALOBOS MD [Primary Care Provider] - Follow up as needed
[2018-09-26 00:38] VITALS: BP 211/58
== END 2018-09-26 00:38 | disposition home or self-care (01) ==
LOC: ER 19:59
DX: L76.21 Postprocedural hemorrhage of skin and subcutaneous tissue following a dermatologic procedure (principal); Y83.8 Other surgical procedures as the cause of abnormal reaction of the patient, or of later complication, without mention of misadventure at the time of the procedure; I25.10 Atherosclerotic heart disease of native coronary artery without angina pectoris; I12.0 Hypertensive chronic kidney disease with stage 5 chronic kidney disease or end stage renal disease; E11.22 Type 2 diabetes mellitus with diabetic chronic kidney disease; N18.6 End stage renal disease; Z99.2 Dependence on renal dialysis; R00.1 Bradycardia, unspecified; Z87.891 Personal history of nicotine dependence; Z95.1 Presence of aortocoronary bypass graft
CPT/HCPCS: 99283; J3490

== ENCOUNTER 2018-11-08 09:20 | Day surgery (SDC) | payer MEDICARE, OTHER ==
[~2018-11-08 09:20] MED LIST changes: -CEFAZOLIN 1 GM/D5W RTU 1 GM/50 ML RTUPB IV PRN; +DIAZEPAM 5 MG TABLET PO PRN; +OXYCODONE-ACETAMINOPHEN 5-325 MG TABLET PO PRN
[2018-11-08 10:00] LABS: HEMATOCRIT 37.7 % (37.9-51.0); HEMOGLOBIN 12.5 g/dL (13.5-17.0); MEAN CORPUSCULAR HEMOGLOBIN 29.6 pg (27.0-33.4); MEAN CORPUSCULAR VOLUME 90 fl (80-97); PLATELET COUNT 235 10^3/uL (150-450); RED BLOOD COUNT 4.21 10^6/uL (4.35-5.55); RED CELL DISTRIBUTION WIDTH 16.2 % (11.5-14.0); WHITE BLOOD COUNT 5.6 10^3/uL (4.0-10.5)
[2018-11-08 10:21] LABS: ANION GAP 17 (5-19); BLOOD UREA NITROGEN 30 mg/dL (7-20); CARBON DIOXIDE 26 mmol/L (22-30); CHLORIDE 95 mmol/L (98-107); GLUCOSE 274 mg/dL (75-110); POTASSIUM 3.7 mmol/L (3.6-5.0); SODIUM 137.5 mmol/L (137-145)
[2018-11-08] MEDS ORDERED: LIDOCAINE 0.5% INJ-PF (5 MG/ML) 50 ML SDV ONE (10:43)
[2018-11-08] MEDS ORDERED: DIAZEPAM 5 MG TABLET ONE (10:46)
[2018-11-08] MEDS ORDERED: OXYCODONE-ACETAMINOPHEN 5-325 MG TABLET ONE (10:46)
[2018-11-08] MEDS ORDERED: MIDAZOLAM 2 MG/2 ML INJ ONE (11:15)
[2018-11-08] MEDS ORDERED: HEPARIN SOD (PORCINE) 5,000 UNIT/ML 1 ML SYRINGE ONE (11:15)
[2018-11-08] MEDS ORDERED: FENTANYL CITRATE INJ/PF 100 MCG/2 ML AMPUL ONE (11:15)
--- NOTE | 2018-11-08 12:39 | Discharge Summary ---
Discharge Summary (SDC) - Discharge Final Diagnosis: #1 malfunctioning arteriovenous fistula, left radiocephalic. 2. End-stage renal disease on hemodialysis. 3. Diabetes mellitus type 2. 4. Coronary artery disease. 5. Hypertension. Date of Surgery: 11/08/18 Discharge Date: 11/08/18 Condition: Fair Treatment or Instructions: Discharge home [after recovery per ASU criteria]. Diet , [renal],as tolerated, when fully awake advance as tolerated. Activities within moderation encouraged. Follow up in my office by appointment in about [1 week]. Call for appointment. Leave wounds [covered], [keep clean and dry, until hemodialysis. Meds per med rec. May shower [in 48 hrs], [try to keep operated area as dry as possible]. Referrals: NED VILLALOBOS MD [Primary Care Provider] - Discharge Diet: Other (Comments) - Renal, diabetic. Respiratory Treatments at Home: Deep Breathing/Coughing Discharge Activity: Activity As Tolerated Report the Following to Your Physician Immediately: Shortness of Breath, Unusual Bleeding
--- NOTE | 2018-11-08 12:41 | PDOC H&P ---
General Chief Complaint: No flow has been noted in the patient's arteriovenous fistula. Making for suboptimal dialysis. He is therefore referred across for evaluation and intervention. - Current Medications/Allergies Home Medications: Amlodipine Besylate [Norvasc 10 mg Tablet] 10 mg PO QHS 04/09/18 Aspirin [Aspirin EC] 81 mg PO DAILY 04/09/18 B Complex W-C No.20/Folic Acid [Renal Caps Softgel] 1 mg PO DAILY 04/09/18 Calcium Acetate [Phoslo 667 mg Capsule] 1,334 mg PO ASDIR PRN 04/09/18 Calcium Acetate [Phoslo 667 mg Capsule] 2,668 mg PO MEALS 04/09/18 Clonidine HCl [Catapres 0.1 mg Tablet] 0.1 mg PO NOON 04/09/18 Clonidine HCl [Catapres 0.1 mg Tablet] 0.1 mg PO QAM 04/09/18 Clonidine HCl [Catapres 0.1 mg Tablet] 0.2 mg PO QHS 04/09/18 Cyanocobalamin (Vitamin B-12) [Vitamin B12] 2,000 mg PO DAILY 04/09/18 Diphenhydramine HCl/Zinc Acet [Anti-Itch Cream] 1 applic TOP Q6 PRN 04/09/18 Doxazosin Mesylate [Cardura 4 mg Tablet] 4 mg PO QHS 04/09/18 Furosemide [Lasix 40 mg Tablet] 40 mg PO NOON 04/09/18 Furosemide [Lasix 40 mg Tablet] 80 mg PO QAM 04/09/18 Gabapentin [Neurontin 300 mg Capsule] 900 mg PO Q8 04/09/18 Hydralazine HCl 100 mg PO Q8 04/09/18 Insulin Glargine,Hum.rec.anlog [Lantus Solostar] 20 unit SQ QHS 04/09/18 Insulin Lispro [Humalog Insulin (Lispro) 100 unit/mL] 0 unit SUBCUT .SLD SCALE 04/09/18 Nitroglycerin [Nitro-Dur 10 mg (0.4MG/Hr) Transdermal Patch] 1 each TD QHS 04/09/18 [place]-3S/Dha/Epa/Fish Oil [Fish Oil [place]-3 Softgel] 1,200 mg PO DAILY 04/09/18 Pravastatin Sodium [Pravachol] 20 mg PO QHS 04/09/18 Sitagliptin Phosphate [Januvia 25 mg Tablet] 25 mg PO DAILY 04/09/18 Sodium Polystyrene Sulfonate [Kayexalate 15 gm/60 ml Susp 60 ml] 30 gm PO FERREIRA@1000 04/09/18 Allergies/Adverse Reactions: No Known Allergies Allergy (Verified 09/25/18 20:15) Past Medical History Cardiac Medical History: Reports: Coronary Artery Disease - CABG 2009, Myocardial Infarction - 2009, Hyperlipidema, Hypertension Denies: Atrial Fibrillation, Peripheral Vascular Disease, Heart Murmur Pulmonary Medical History: Denies: Asthma, Bronchitis, Chronic Obstructive Pulmonary Disease (COPD), Pneumonia, Tuberculosis Neurological Medical History: Denies: Seizures Endocrine Medical History: Reports: Diabetes Mellitus Type 1, Diabetes Mellitus Type 2 Denies: Hyperthyroidism, Hypothyroidism Renal/ Medical History: Reports: End Stage Renal Disease - dialysis GI Medical History: Denies: Hepatitis, Hiatal Hernia Musculoskeltal Medical History: Denies: Arthritis, Fibromyalgia Psychiatric Medical History: Reports: Depression Hematology: Denies: Anemia, Sickle Cell Disease Past Surgical History Past Surgical History: Reports: Cardiac Catheterization, Coronary Artery Bypass Graft, Orthopedic Surgery - R knee, Vascular Surgery - fistula left forearm Denies: Appendectomy, Cholecystectomy, Gastric Bypass Surgery, Herniorrhaphy, Pacemaker, Tonsillectomy Family History Family History: Reviewed & Not Pertinent, DM, Hypertension Parental Family History Reviewed: No Children Family History Reviewed: No Sibling(s) Family History Reviewed.: No Social History Smoking Status: Never Smoker Frequency of Alcohol Use: None Hx Recreational Drug Use: No Drugs: None Hx Prescription Drug Abuse: No Physical Exam Vital Signs: Temp Pulse Resp BP Pulse Ox 98.3 F 52 L 18 147/47 H 94 11/08/18 11:12 11/08/18 11:12 11/08/18 11:12 11/08/18 11:12 11/08/18 11:12 Intake & Output 11/07/18 11/08/18 11/09/18 06:59 06:59 06:59 Weight 83.915 kg 83.915 kg Additional comments: Constitutional: Well-developed well-nourished gentleman. No apparent acute distress. Cardiac: Heart sounds normal. Respiratory: Normal respiratory effort. Psychiatric: Judgment, memory, insight seem normal. Mood is pleasant and appropriate. Extremities: Upper extremities show normal range of movement. Pulses present noted to the radial arteries. Capillary refill normal. No cyanosis noted. No muscle wasting noted. Lower extremities show normal range of movement. Pulses present noted to the dorsalis pedis artery. Capillary refill normal. No cyanosis noted. No muscle wasting noted. Left forearm radiocephalic fistula. Somewhat soft. Considerable ectasia up to about 2.5 cm. Impression/Plan Plan: This patient with a dysfunctional arteriovenous fistula is indicated for angiogram. Angioplasty to be done if needed. The goal is to sustain adequate dialysis function.
--- NOTE | 2018-11-08 12:46 | Operative Report ---
Operative Report DATE OF SURGERY: 11/08/18 PREOPERATIVE DIAGNOSIS: #1 malfunctioning arteriovenous fistula, left radioceph alic. 2. End-stage renal disease on hemodialysis. 3. Diabetes mellitus type 2. 4. Coronary artery disease. 5. Hypertension. POSTOPERATIVE DIAGNOSIS: #1 malfunctioning arteriovenous fistula, left radiocephalic. 2. End-stage renal disease on hemodialysis. 3. Diabetes mellitus type 2. 4. Coronary artery disease. 5. Hypertension. OPERATION: 1. Needle access into the fistula. 2. Angioplasty at the anastomosis. 3. Angiogram and interpretation. SURGEON: PEDRO ELLISON PROGRAM STRATEGIST: None. ANESTHESIA: Moderate Sedation TISSUE REMOVED OR ALTERED: Not applicable. COMPLICATIONS: None. ESTIMATED BLOOD LOSS: 2 mL. INTRAOPERATIVE FINDINGS: Of a left radiocephalic fistula, somewhat soft except for the first about 2 cm. Considerable ectasia up to 2.5 cm. Good skin quality. Angiogram demonstrates the area of ectasia. Cephalad the veins are patent though somewhat on the small side. Reflux through the basilic and brachial veins primarily somewhat less so in the arm cephalic. The culprit lesion is very short and confined to the anastomosis. Estimated to be 70% of the adjacent lumen. Completely eradicated with a 5 mm angioplasty balloon. Postprocedure evaluation of the fistula shows a much more robust pulsation suggesting improved inflow. PROCEDURE: PROCEDURE: After verifying the procedure and having obtained informed consent, the patient's left arm and forearm were prepared with Chlorhexidine and draped out with sterile linen. Local anesthesia infiltrated. Percutaneous access into the fistula ,[retrograde], obtained about [20 cm] from the arteriovenous anastomosis using a micro puncture needle followed by micro puncture wire and then a micro puncture catheter. A 0.035 Metaline wire was inserted, and over this, a 6 [place] short introducer was placed, this was followed by a Kumpe catheter. Angiogram demonstrated the aforementioned findings. Angioplasty was elected. Angioplasty was now done at the anastomosis and over the anastomotic and perianastomotic segment. This was done very carefully and using hand-injection for up to 1 minute. Angiogram demonstrated successful outcome. Completion angiogram demonstrated [satisfactory result]. The instrumentation was now withdrawn over hand pressure for 10 minutes . Dressings applied, procedure concluded. Exposure time: 1.3 minutes Radiation: 3.48 Stella genao Contrast: 25 mL of Isovue-M 300 low osmolality. DICTATING PHYSICIAN: PEDRO POLO M.D. cc: PEDRO POLO M.D. ([id number]) >>
--- NOTE | 2018-11-08 14:25 | RADIOLOGY REPORT (SQ) ---
EXAM DESCRIPTION: FISTULAGRAM W/PLASTY COMPLETED DATE/TIME: 11/08/2018 12:07 pm REASON FOR STUDY: T82.858A T82.858A STENOSIS OF OTHER VASCULAR PROSTH DEV/GRFT, INIT COMPARISON: 03/15/2016 FLUOROSCOPY TIME: 1.3 minutes 7 series of digital cine fluoroscopic images saved to PACS. TECHNIQUE: Intra-operative images acquired during surgical procedure to evaluate progress. NUMBER OF IMAGES: 7 series of digital cine fluoroscopic images LIMITATIONS: None. FINDINGS: Intra procedural imaging and fluoro during left upper extremity dialysis access evaluation and plasty by Dr. Abarca. IMPRESSION: IMAGE(S) OBTAINED DURING PROCEDURE. COMMENT: Quality ID [id number]: Final reports for procedures using fluoroscopy that document radiation exp osure indices, or exposure time and number of fluorographic images (if radiation exposure indices are not available) Please consult full operative report of the attending physician for description of the procedure. TECHNICAL DOCUMENTATION: JOB ID: [id number] [employer]- All Rights Reserved Reading location - IP/workstation name: [email or web address]
[2018-11-08 14:38] VITALS: BP 146/88
== END 2018-11-08 13:30 | disposition home or self-care (01) ==
LOC: CCL 09:20
PROVIDERS: ATTEND Surgery
DX: T82.858A Stenosis of other vascular prosthetic devices, implants and grafts, initial encounter (principal); Y83.2 Surgical operation with anastomosis, bypass or graft as the cause of abnormal reaction of the patient, or of later complication, without mention of misadventure at the time of the procedure; I12.0 Hypertensive chronic kidney disease with stage 5 chronic kidney disease or end stage renal disease; E10.22 Type 1 diabetes mellitus with diabetic chronic kidney disease; N18.6 End stage renal disease; Z99.2 Dependence on renal dialysis; I25.10 Atherosclerotic heart disease of native coronary artery without angina pectoris; Z79.82 Long term (current) use of aspirin; Z79.899 Other long term (current) drug therapy; Z79.4 Long term (current) use of insulin; I25.2 Old myocardial infarction; E78.5 Hyperlipidemia, unspecified
CPT/HCPCS: 36415; 85027; 80048; 36902; C1752; C1725; C1887; Q9967; C1769; J2250; J1644 ×2; A9270 ×2; J3010; J3490

== ENCOUNTER 2019-07-16 09:26 | Day surgery (SDC) | payer MEDICARE, OTHER ==
[~2019-07-16 09:26] MED LIST changes: -OXYCODONE-ACETAMINOPHEN 5-325 MG TABLET PO PRN
[2019-07-16 10:45] LABS: ABSOLUTE EOSINOPHILS # (AUTO) 0.1 10^3/uL (0.0-0.6); ABSOLUTE LYMPHOCYTES (AUTO) 0.4 10^3/uL (0.5-4.7); ABSOLUTE MONOCYTES (AUTO) 0.5 10^3/uL (0.1-1.4); ABSOLUTE NEUT (AUTO) 3.1 10^3/uL (1.7-8.2); BASOPHILS % (AUTO) 0.9 % (0-2); EOSINOPHILS % (AUTO) 1.9 % (0-6); HEMATOCRIT 31.1 % (37.9-51.0); HEMOGLOBIN 10.6 g/dL (13.5-17.0); LYMPHOCYTES % (AUTO) 8.9 % (13-45); MEAN CORPUSCULAR HEMOGLOBIN 29.9 pg (27.0-33.4); MEAN CORPUSCULAR HGB CONC 33.9 g/dL (32.0-36.0); MEAN CORPUSCULAR VOLUME 88 fl (80-97); MONOCYTES % (AUTO) 11.5 % (3-13); PLATELET COUNT 167 10^3/uL (150-450); RED BLOOD COUNT 3.53 10^6/uL (4.35-5.55); RED CELL DISTRIBUTION WIDTH 16.6 % (11.5-14.0); SEGMENTED NEUTROPHILS % (AUTO) 76.8 % (42-78); TOTAL CELLS COUNTED % (AUTO) 100 %
[2019-07-16 11:05] LABS: ANION GAP 16 (5-19); BLOOD UREA NITROGEN 28 mg/dL (7-20); CALCIUM 8.9 mg/dL (8.4-10.2); CARBON DIOXIDE 27 mmol/L (22-30); CHLORIDE 95 mmol/L (98-107); GLUCOSE 186 mg/dL (75-110); POTASSIUM 4.7 mmol/L (3.6-5.0)
[2019-07-16] MEDS ORDERED: LIDOCAINE 0.5% INJ-PF (5 MG/ML) 50 ML SDV ONE (11:51)
[2019-07-16] MEDS ORDERED: MIDAZOLAM 2 MG/2 ML INJ ONE (11:52)
[2019-07-16] MEDS ORDERED: HEPARIN SOD (PORCINE) 5,000 UNIT/ML 1 ML VIAL ONE (11:52)
[2019-07-16] MEDS ORDERED: FENTANYL CITRATE INJ/PF 100 MCG/2 ML AMPUL ONE (11:52)
--- NOTE | 2019-07-16 12:14 | PDOC H&P ---
General Chief Complaint: The patient is referred from hemodialysis for evaluation of his AV fistula which has been malfunctioning and firm. - Current Medications/Allergies Home Medications: Amlodipine Besylate [Norvasc 10 mg Tablet] 10 mg PO QHS 04/09/18 Aspirin [Aspirin EC] 81 mg PO DAILY 04/09/18 B Complex W-C No.20/Folic Acid [Renal Caps Softgel] 1 mg PO DAILY 04/09/18 Calcium Acetate [Phoslo 667 mg Capsule] 1,334 mg PO ASDIR PRN 04/09/18 Calcium Acetate [Phoslo 667 mg Capsule] 2,668 mg PO MEALS 04/09/18 Clonidine HCl [Catapres 0.1 mg Tablet] 0.1 mg PO NOON 04/09/18 Clonidine HCl [Catapres 0.1 mg Tablet] 0.1 mg PO QAM 04/09/18 Clonidine HCl [Catapres 0.1 mg Tablet] 0.2 mg PO QHS 04/09/18 Cyanocobalamin (Vitamin B-12) [Vitamin B12] 2,000 mg PO DAILY 04/09/18 Diphenhydramine HCl/Zinc Acet [Anti-Itch Cream] 1 applic TOP Q6 PRN 04/09/18 Doxazosin Mesylate [Cardura 4 mg Tablet] 4 mg PO QHS 04/09/18 Furosemide [Lasix 40 mg Tablet] 40 mg PO NOON 04/09/18 Furosemide [Lasix 40 mg Tablet] 80 mg PO QAM 04/09/18 Gabapentin [Neurontin 300 mg Capsule] 900 mg PO Q8 04/09/18 Hydralazine HCl 100 mg PO Q8 04/09/18 Insulin Glargine,Hum.rec.anlog [Lantus Solostar] 20 unit SQ QHS 04/09/18 Insulin Lispro [Humalog Insulin (Lispro) 100 unit/mL] 0 unit SUBCUT .SLD SCALE 04/09/18 Nitroglycerin [Nitro-Dur 10 mg (0.4MG/Hr) Transdermal Patch] 1 each TD ASDIR PRN 04/09/18 Slaton-3S/Dha/Epa/Fish Oil [Fish Oil Slaton-3 Softgel] 1,200 mg PO DAILY 04/09/18 Pravastatin Sodium [Pravachol] 20 mg PO QHS 04/09/18 Sitagliptin Phosphate [Januvia 25 mg Tablet] 25 mg PO DAILY 04/09/18 Sodium Polystyrene Sulfonate [Kayexalate 15 gm/60 ml Susp 60 ml] 30 gm PO FERREIRA@1000 04/09/18 Allergies/Adverse Reactions: acetaminophen [From Percocet] Adverse Reaction (Intermediate, Verified 07/16/19 10:00) oxycodone [From Percocet] Adverse Reaction (Intermediate, Verified 07/16/19 10:00) Past Medical History Cardiac Medical History: Reports: Coronary Artery Disease - CABG 2009, Myocardial Infarction - 2009, Hyperlipidema, Hypertension Denies: Atrial Fibrillation, Peripheral Vascular Disease, Heart Murmur Pulmonary Medical History: Denies: Asthma, Bronchitis, Chronic Obstructive Pulmonary Disease (COPD), Pneumonia, Tuberculosis Neurological Medical History: Denies: Seizures Endocrine Medical History: Reports: Diabetes Mellitus Type 1, Diabetes Mellitus Type 2 Denies: Hyperthyroidism, Hypothyroidism Renal/ Medical History: Reports: End Stage Renal Disease - dialysis GI Medical History: Denies: Hepatitis, Hiatal Hernia Musculoskeltal Medical History: Denies: Arthritis, Fibromyalgia Psychiatric Medical History: Reports: Depression Hematology: Denies: Anemia, Sickle Cell Disease Past Surgical History Past Surgical History: Reports: Cardiac Catheterization, Coronary Artery Bypass Graft, Orthopedic Surgery - R knee, Vascular Surgery - fistula left forearm Denies: Appendectomy, Cholecystectomy, Gastric Bypass Surgery, Herniorrhaphy, Pacemaker, Tonsillectomy Family History Family History: Reviewed & Not Pertinent, DM, Hypertension Parental Family History Reviewed: No Children Family History Reviewed: No Sibling(s) Family History Reviewed.: No Social History Smoking Status: Former Smoker Frequency of Alcohol Use: None Hx Recreational Drug Use: No Drugs: None Hx Prescription Drug Abuse: No Physical Exam Vital Signs: Temp Pulse Resp BP Pulse Ox 97.7 F 51 L 17 164/54 H 97 07/16/19 09:32 07/16/19 09:32 07/16/19 09:32 07/16/19 09:32 07/16/19 09:32 Intake & Output 07/15/19 07/16/19 07/17/19 06:59 06:59 06:59 Weight 83.915 kg 83.915 kg Additional comments: Constitutional: Well-developed well-nourished gentleman. No apparent acute distress. Eyes: Mucous membranes pink and moist, pupils equal and reactive to light. Conjunctiva normal. Cornea normal. ENT: Hearing grossly normal. External pinna normal to inspection. Teeth intact. Tongue normal to inspection. Cardiac: Heart sounds 1 and 2 normal, no murmurs. Respiratory: breath sounds are present bilaterally, normal. Normal respiratory effort. Skin: Numerous scars and small ulcerations in the exposed skin suggestive of squamous cell or basal cell carcinomas in various stages of treatment. Psychiatric: Judgment, memory, insight seem normal. Mood is pleasant and appropriate. Extremities: Upper extremities show normal range of movement. Pulses present noted to the radial arteries. Capillary refill normal. No cyanosis noted. No muscle wasting noted. Left forearm radiocephalic fistula, dilated and firm with semi-obstructive pulse suggestive of cephalad stenosis. Impression/Plan Plan: The patient is agreeable to fistula angiogram and possible angioplasty. The procedure, its risks, benefits, expected outcome and alternatives are familiar to him and he wishes to proceed.
--- NOTE | 2019-07-16 13:03 | Discharge Summary ---
Discharge Summary (SDC) - Discharge Final Diagnosis: #1 AV fistula malfunction. 2. End-stage renal disease on hemodialysis. 3. Diabetes mellitus type 2. 4. Hypertension. Date of Surgery: 07/16/19 Discharge Date: 07/16/19 Condition: Poor Treatment or Instructions: Discharge home [after recovery per ASU criteria]. Diet , [renal],as tolerated, when fully awake advance as tolerated. Activities within moderation encouraged. Follow up in my office as needed. Leave wounds [covered], [keep clean and dry, until hemodialysis. Meds per med rec. May shower [in 48 hrs], [try to keep operated area as dry as possible]. Referrals: NED VILLALOBOS MD [Primary Care Provider] - Discharge Diet: Other (Comments) - Diabetic, renal. Report the Following to Your Physician Immediately: Shortness of Breath, Fever over 101 Degrees, Unusual Bleeding
--- NOTE | 2019-07-16 13:07 | Operative Report ---
Operative Report DATE OF SURGERY: 07/16/19 PREOPERATIVE DIAGNOSIS: #1 AV fistula malfunction. 2. End-stage renal disease on hemodialysis. 3. Diabetes mellitus type 2. 4. Hypertension. POSTOPERATIVE DIAGNOSIS: #1 AV fistula malfunction. 2. End-stage renal disease on hemodialysis. 3. Diabetes mellitus type 2. 4. Hypertension. OPERATION: 1. Needle access in the AV fistula. 2. Fistula angioplasty. 3. Angiogram and interpretation. SURGEON: PEDRO ELLISON ASSOCIATE MERCHANDISER: None. ANESTHESIA: Moderate Sedation TISSUE REMOVED OR ALTERED: Not applicable. COMPLICATIONS: None. ESTIMATED BLOOD LOSS: 2 mL. INTRAOPERATIVE FINDINGS: Of a dilated left forearm radiocephalic fistula. Somew hat firm. An area of transition noted in the mid forearm. Angiogram demonstrates aforementioned dilation with excellent outflow through basilic brachial and cephalic veins up to and including the cardiac circuit. An area of sharp been or stenosis is appreciated about 10 cm above the anastomosis. This was dilated with a 8 mm balloon. No actual waist seen although improvement in the fistula quality after appreciated. PROCEDURE: PROCEDURE: After verifying the procedure and having obtained informed consent, the patient's left arm was prepared with Chlorhexidine and draped out with sterile linen. Local anesthesia infiltrated. Percutaneous access into the fistula ,[ antegrade], obtained about [3 cm] from the arteriovenous anastomosis using a micro puncture needle followed by micro puncture wire and then a micro puncture catheter. A 0.035 [place] wire was inserted, and over this, a 6 Malay short introducer was placed.,Angiogram demonstrated the aforementioned findings. Angioplasty was elected. this was followed by a [8 -mm] angioplasty balloon . Angioplasty was Done at the culprit area. Inflating using a 3 mils syringe for a minute at a time.]. Completion angiogram demonstrated [satisfactory result]. The instrumentation was now withdrawn over hand pressure for about 10 minutes Dressings applied, procedure concluded. Exposure time: 0.3 minutes. Radiation: 11.04 mGy. Contrast: 25 mils of Omnipaque 300, low osmolality. DICTATING PHYSICIAN: PEDRO POLO M.D. cc: PEDRO POLO M.D. ([id number]) >>
[2019-07-16] MEDS ORDERED: CLONIDINE HCL 0.1 MG TABLET PO ONE (13:30)
[2019-07-16] MEDS ORDERED: HYDRALAZINE HCL 50 MG TABLET PO ONE (13:30)
[2019-07-16] MEDS ORDERED: CLONIDINE HCL 0.2 MG TABLET ONE (13:32)
[2019-07-16] MEDS ORDERED: FUROSEMIDE 40 MG TABLET ONE (13:32)
[2019-07-16] MEDS ORDERED: HYDRALAZINE HCL 50 MG TABLET ONE (13:32)
[2019-07-16] MEDS ORDERED: FUROSEMIDE 40 MG TABLET PO ONE (13:45)
[2019-07-16 14:37] VITALS: BP 163/53
--- NOTE | 2019-07-16 14:47 | RADIOLOGY REPORT (SQ) ---
EXAM DESCRIPTION: FISTULAGRAM W/PLASTY COMPLETED DATE/TIME: 07/16/2019 12:40 pm REASON FOR STUDY: T82.858A T82.858A STENOSIS OF OTHER VASCULAR PROSTH DEV/GRFT, INIT COMPARISON: None. FLUOROSCOPY TIME: 0.3 minutes 79 images saved to PACS. TECHNIQUE: Intra-operative images acquired during surgical procedure to evaluate progress. NUMBER OF IMAGES: 79 LIMITATIONS: None. FINDINGS: Spot fluoroscopic and cine images of left upper extremity dialysis graft angiography and a ngioplasty. IMPRESSION: IMAGE(S) OBTAINED DURING PROCEDURE. COMMENT: Quality ID 145: Final reports for procedures using fluoroscopy that document radiation exp osure indices, or exposure time and number of fluorographic images (if radiation exposure indices are not available) Please consult full operative report of the attending physician for description of the procedure. TECHNICAL DOCUMENTATION: JOB ID: [id number] [employer]- All Rights Reserved Reading location - IP/workstation name: [email or web address]
== END 2019-07-16 13:30 | disposition home or self-care (01) ==
LOC: CCL 09:26
PROVIDERS: ATTEND Surgery
DX: T82.858A Stenosis of other vascular prosthetic devices, implants and grafts, initial encounter (principal); Y83.2 Surgical operation with anastomosis, bypass or graft as the cause of abnormal reaction of the patient, or of later complication, without mention of misadventure at the time of the procedure; E11.22 Type 2 diabetes mellitus with diabetic chronic kidney disease; E10.22 Type 1 diabetes mellitus with diabetic chronic kidney disease; N18.6 End stage renal disease; Z99.2 Dependence on renal dialysis; Z79.82 Long term (current) use of aspirin; Z79.899 Other long term (current) drug therapy; Z79.4 Long term (current) use of insulin; Z88.5 Allergy status to narcotic agent; Z88.6 Allergy status to analgesic agent; I25.10 Atherosclerotic heart disease of native coronary artery without angina pectoris; I25.2 Old myocardial infarction; E78.5 Hyperlipidemia, unspecified
CPT/HCPCS: 36415; 82962; 85025; 80048; 36902; C1725; C1752; Q9967; C1769; J1644 ×2; A9270 ×4; J3490; J2250; J3010

== ENCOUNTER → 2020-04-13 | Outpatient (CLI) | payer MEDICARE, OTHER ==
--- NOTE | 2020-04-13 17:09 | RADIOLOGY REPORT (SQ) ---
EXAM DESCRIPTION: ARTERIAL LOWER EXTREM BILAT IMAGES COMPLETED DATE/TIME: 04/13/2020 4:03 pm REASON FOR STUDY: PVD I73.9 PERIPHERAL VASCULAR DISEASE, UNSPECIFIED COMPARISON: Arterial Doppler 03/15/2016 TECHNIQUE: Dynamic and static genoa scale and color images acquired of the lower extremity arteries. Additional selected spectral images recorded. ABIs recorded. LIMITATIONS: None. FINDINGS: RIGHT LEG: ABIS: Unable to obtain ankle-brachial indices, noncompressible vessels INFLOW ARTERIES: Normal, no obstruction evident. FEMORAL ARTERIES:Multiphasic waveforms. Normal, no velocity elevation to suggest focal stenosis. Norm al color Doppler evaluation. No aneurysm. POPLITEAL ARTERY:Monophasic waveforms. Normal, no velocity elevation to suggest focal stenosis. Lisette l color Doppler evaluation. No aneurysm. PATENT TIBIOPERONEAL TRUNK AND 3 VESSEL RUNOFF: Patent tibioperoneal trunk. Posterior tibial artery is patent to the ankle. Peroneal artery is occluded Proximal 2/3 of the anterior tibial artery is patent, distal 3rd is occluded. Pulsatile dorsalis pedis flow likely from collaterals. TBI: Not performed. OTHER: No other significant finding. LEFT LEG: ABIS: Unable to obtain ankle-brachial indices, noncompressible vessels INFLOW ARTERIES: Normal, no obstruction evident. FEMORAL ARTERIES:Multiphasic waveforms. Normal, no velocity elevation to suggest focal stenosis. Norm al color Doppler evaluation. No aneurysm. POPLITEAL ARTERY:Focal high-grade stenosis with peak systolic velocity almost 5 m/sec indicating grea ter than 75% stenosis left popliteal artery. Monophasic flow PATENT TIBIOPERONEAL TRUNK AND 3 VESSEL RUNOFF: Patent tibioperoneal trunk. Posterior tibial artery, anterior tibial artery patent to the foot. Pulsatile dorsalis pedis flow. Peroneal artery not visu alized TBI: Not performed. OTHER: No other significant finding. IMPRESSION: Infrapopliteal disease on the right High-grade stenosis left popliteal artery COMMENT: [facility] NORMAL: Greater than 1.0 MINIMAL DISEASE: 0.9 to 1.0 CLAUDICATION: 0.5 to 0.9 SEVERE ARTERIAL DISEASE: Less than 0.5 [facility] NORMAL: Greater than 1.0 (1.2 If Heavy Calcifications) NORMAL TO MILD ISCHEMIA: 0.8 to 1.0 MODERATE ISCHEMIA: 0.4 to 0.8 SEVERE ISCHEMIA: Less than 0.4 TECHNICAL DOCUMENTATION: JOB ID: [id number] 2010 [employer]- All Rights Reserved Reading location - IP/workstation name: [email or web address]
== END ==
LOC: SP 13:50
PROVIDERS: ATTEND Family Medicine
DX: I73.9 Peripheral vascular disease, unspecified (principal)
CPT/HCPCS: 93925

== ENCOUNTER → 2020-06-16 | Outpatient (CLI) | payer MEDICARE, OTHER ==
--- NOTE | 2020-06-16 14:56 | RADIOLOGY REPORT (SQ) ---
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 TECHNIQUE: CT scan performed of the chest without intravenous contrast. Images reviewed with lung, soft tissue and bone windows. Reconstructed coronal and sagittal MPR images reviewed. All images st ored on PACS. All CT scanners at this facility use dose modulation, iterative reconstruction, and/or weight based d osing when appropriate to reduce radiation dose to as low as reasonably achievable (ALARA). [facility]: Dose Right [facility]: CareDose [facility]: Dose Right [facility]: Teradose 4D [facility]: [employer] RADIATION DOSE: CT Rad equipment meets quality standard of care and radiation dose reduction techniq ues were employed. CTDIvol: 13.9 mGy. DLP: 519 mGy-cm. mGy. LIMITATIONS: No technical limitations. FINDINGS: LUNGS AND PLEURA: No masses, infiltrates, or pneumothorax. Small pleural effusions. HILAR AND MEDIASTINAL STRUCTURES: No identified masses or abnormal nodes. No obvious aneurysm. HEART AND VASCULAR STRUCTURES: Dense vascular calcifications. No aneurysm. Cardiomegaly. No perica rdial effusion. UPPER ABDOMEN: Large bowel ascites. Atrophic kidneys. Limited exam. THYROID AND OTHER SOFT TISSUES: No masses. No adenopathy. BONES: No significant finding. HARDWARE: Cardiac hardware. OTHER: No other significant findings. IMPRESSION: 1. CARDIOMEGALY. SMALL PLEURAL EFFUSIONS. NO OTHER SIGNIFICANT FINDING ON NON-CONTRASTED CHEST CT. 2. LIMITED IMAGES OF THE UPPER ABDOMEN WITH CHRONIC ATROPHIC KIDNEYS (DIALYSIS PATIENT) AND LARGE BRIANNA UNT OF ASCITES. TECHNICAL DOCUMENTATION: JOB ID: [id number] Quality ID # 436: Final reports with documentation of one or more dose reduction techniques (e.g., Au tomated exposure control, adjustment of the mA and/or kV according to patient size, use of iterative reconstruction technique) 2010 [employer]- All Rights Reserved Reading location - IP/workstation name: [email or web address]
--- NOTE | 2020-06-17 10:50 | RADIOLOGY REPORT (SQ) ---
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 TECHNIQUE: Post IV contrasted scanning from skull base through lung apices with review of bone, soft tissue and lung windows. Reconstructed coronal and sagittal MPR images reviewed. All images stored on PACS. All CT scanners at this facility use dose modulation, iterative reconstruction, and/or weight based d osing when appropriate to reduce radiation dose to as low as reasonably achievable (ALARA). [facility]: Dose Right [facility]: CareDose [facility]: Dose Right [facility]: Teradose 4D [facility]: [employer] CONTRAST TYPE AND DOSE: contrast/concentration: Isovue 350.00 mmol/ml; Total Contrast Delivered: 75. 0 ml; Total Saline Delivered: 45.0 ml RENAL FUNCTION: Patient scheduled for dialysis within 24 hours. RADIATION DOSE: . LIMITATIONS: None. FINDINGS: SKULL BASE: Intact. MAJOR SALIVARY GLANDS: No solid or cystic masses. No inflammatory changes. LYMPHADENOPATHY: Scattered small cervical lymph nodes are demonstrated. MUCOSAL MASSES OR ASYMMETRY: No mucosal masses or asymmetry. LARYNX/CORDS: No abnormal findings. VASCULAR STRUCTURES: Atherosclerotic vascular calcifications without flow limiting stenosis. LUNG APICES: Trace pleural effusions. No suspicious nodule or mass. No pneumothorax. BONES: Reversal of the normal cervical lordotic curvature on the basis of spondylotic change. No dodie picious lytic or blastic osseous lesions. THYROID: Normal size. No masses. PARANASAL SINUSES: Clear. OTHER: Diffuse soft tissue thickening is seen of the left ear with occlusion of the left external aud itory meatus. IMPRESSION: Diffuse soft tissue thickening of the left ear with occlusion of the left external audit ory meatus. No underlying osseous erosion. No cervical lymphadenopathy. TECHNICAL DOCUMENTATION: JOB ID: [id number] Quality ID # [id number]: Final reports with documentation of one or more dose reduction techniques (e.g., Au tomated exposure control, adjustment of the mA and/or kV according to patient size, use of iterative reconstruction technique) 2010 [employer]- All Rights Reserved Reading location - IP/workstation name: [email or web address]
== END ==
LOC: RAD 13:13
PROVIDERS: ATTEND Otolaryngology
DX: C44.329 Squamous cell carcinoma of skin of other parts of face (principal); I51.7 Cardiomegaly; J90 Pleural effusion, not elsewhere classified; N26.1 Atrophy of kidney (terminal)
CPT/HCPCS: 70491; 71250; 82565

== ENCOUNTER → 2020-06-30 | Outpatient (CLI) | payer MEDICARE, OTHER ==
--- NOTE | 2020-06-30 12:50 | RADIOLOGY REPORT (SQ) ---
EXAM DESCRIPTION: U/S CHEST IMAGES COMPLETED DATE/TIME: 06/30/2020 11:26 am REASON FOR STUDY: (J91.8)PLEURAL EFFUSION IN OTHER CONDITIONS CLASSIFIED ELSEWHERE J91.8 PLEURAL EF FUSION IN OTHER CONDITIONS CLASSIFIED ELSEWHERE COMPARISON: None. TECHNIQUE: Dynamic and static grayscale images acquired of the localized site of clinical concern an d recorded on PACS. Additional selected color Doppler and spectral images recorded. SITE OF CONCERN: Pleural spaces LIMITATIONS: None. FINDINGS: Sonographic imaging shows small bilateral pleural effusions. IMPRESSION: Small bilateral pleural effusions. TECHNICAL DOCUMENTATION: JOB ID: [id number] 2010 [employer]- All Rights Reserved Reading location - IP/workstation name: [email or web address]
== END ==
LOC: RAD 11:10
PROVIDERS: ATTEND Specialist
DX: J91.8 Pleural effusion in other conditions classified elsewhere (principal)
CPT/HCPCS: 76604